=== PATIENT | male | born 1960 | race Caucasian/White ===

== ENCOUNTER 2017-06-05 03:15 | Inpatient (IN) | payer OTHER, SELFPAY ==
[2017-06-05 03:45] LABS: #Basophils 0.1 thou/uL (0.0-0.2); #Eosinphils 0.1 thou/uL (0.0-0.7); #Lymphocytes 0.9 thou/uL (1.20-3.40); #Monocytes 0.4 thou/uL (0.11-0.59); #Neutrophils 6.1 thou/uL (1.40-6.50); %Basophils 0.7 % (0.0-1.0); %Eosinophils 0.8 % (0.0-10.0); %Lymphocytes 11.6 % (21.0-51.0); %Monocytes 5.3 % (0.0-10.0); %Neutrophils 81.6 % (42.0-75.0); Hemoglobin 14.1 g/dL (14.0-18.0); Mean Corpuscular HGB CONC 33.8 g/dL (32.0-36.0); Mean Corpuscular Hemoglobin 31.5 pg (27.0-31.0); Mean Corpuscular Volume 93.3 fl (80.0-94.0); Mean Platelet Volume 8.9 fL (7.4-10.4); Platelet Count 143 thou/uL (130-400); RBC Distribution Width 13.6 % (11.5-14.5); Red Blood Cell (RBC) Count 4.47 mill/uL (4.70-6.10); White Blood Cell (WBC) Count 7.5 thou/uL (4.8-10.8)
[2017-06-05 03:51] LABS: INR-International Normal Ratio 1.2; PTT 33.6 SEC (22.9-36.1); Prothrombin Time 15.4 SEC (12.0-14.7)
[2017-06-05 04:06] LABS: ALT (SGPT) 19 U/L (8-55); AST (SGOT) 35 U/L (5-34); Albumin 3.8 g/dL (3.5-5.0); Alkaline Phosphatase 166 U/L (40-150); Anion Gap 15 mmol/L (10-20); BUN (Urea Nitrogen) 11 mg/dL (8.4-25.7); Bilirubin, Total 1.9 mg/dL (0.2-1.2); CK (CPK) 198 U/L (30-200); Calc. Creatinine Clearance 0 mL/min (70-130); Calcium 9.1 mg/dL (7.8-10.44); Carbon Dioxide 23 mmol/L (22-29); Chloride 103 mmol/L (98-107); Estimated GFR-MDRD Greater than 90; Globulin 4.3 g/dL (2.4-3.5); Glucose 225 mg/dL (70-105); Potassium 4.3 mmol/L (3.5-5.1); Protein, Total 8.1 g/dL (6.0-8.3); Sodium 137 mmol/L (136-145)
[2017-06-05 04:10] LABS: CKMB 3.4 ng/mL (0-6.6); Troponin I 0.163 ng/mL (< 0.028)
[2017-06-05] MEDS ORDERED: Nitroglycerin 0.4 MG TAB (25 Tab Bottle) ONE (04:12)
[2017-06-05] MEDS ORDERED: Nitroglycerin 2% Ointment 1 INCH/1 GM Packet ONE (04:12)
[2017-06-05] MEDS ORDERED: Enoxaparin Sodium 100 MG/ML SYRINGE ONE (04:55)
[2017-06-05] MEDS ORDERED: Ondansetron HCl/PF 4 MG/2 ML Vial ONE ×2 (06:09→13:33)
[2017-06-05] MEDS ORDERED: Acetaminophen 325 MG TAB PO PRN ×2 (06:14→11:16)
[2017-06-05] MEDS ORDERED: HYDROcodone/Acetaminophen 5/325 mg Tablet PO PRN (06:14)
[2017-06-05 07:38] LABS: Troponin I 0.277 ng/mL (< 0.028)
--- NOTE | 2017-06-05 08:52 | RAD ---
UPRIGHT PORTABLE CHEST 1 VIEW: HISTORY: A 57-year-old male with chest pain and shortness of breath. COMPARISON: 11/09/05. FINDINGS: Heart size is within upper range of normal limits given somewhat less than optimal inspiration. Ther e is some bilateral vascular crowding. No confluent pneumonia, overt edema, or pleural effusion. IMPRESSION: No acute intrathoracic disease. POS: [facility]
[2017-06-05] MEDS ORDERED: Aspirin 325 MG TAB PO SCH (09:00)
[2017-06-05 10:46] LABS: Troponin I 1.013 ng/mL (< 0.028)
[2017-06-05] MEDS ORDERED: Nitroglycerin 0.4 MG TAB (25 Tab Bottle) SL PRN ×2 (11:21→18:22)
[2017-06-05] MEDS ORDERED: Morphine 4 MG/ML Carpuject SLOW IVP PRN (11:21)
[2017-06-05] MEDS ORDERED: Heparin 10,000 UNITS/ 10 ML VIAL SLOW IVP SCH (11:30)
[2017-06-05] MEDS ORDERED: Iopamidol 370 76% 100 ML VIAL ONE (11:33)
[2017-06-05] MEDS ORDERED: Benzonatate 100 MG CAP PO PRN (11:35)
[2017-06-05] MEDS ORDERED: Dextromethorphan Polistirex 30 MG/5 ML (89 ML BOTTLE) PO PRN (11:35)
[2017-06-05 11:44] LABS: Hemoglobin 13.5 g/dL (14.0-18.0); Platelet Count 134 thou/uL (130-400)
[2017-06-05 12:12] LABS: Troponin I 1.794 ng/mL (< 0.028)
[2017-06-05] MEDS ORDERED: Benzonatate 100 MG CAP ONE (12:29)
--- NOTE | 2017-06-05 12:40 | HP ---
CHIEF COMPLAINT: Cough. HISTORY OF PRESENT ILLNESS: A 57-year-old male with a history of obesity who previously sustained a myocardial infarction and had been evaluated by Cardiovascular Surgery who presents today with a carin f complaint of cough. The patient states that this has been ongoing and progressed over the last wee k and he complains of episodes of coughing were he started coughing and had difficulty stopping cough ing and subsequently has a fair amount of stomach discomfort and chest discomfort that he attributes directly to the coughing. He denies any chest pain or chest pressure without coughing. He endorses a feeling of a "trickle" in the back of his throat that precipitates his episodes of coughing. Denie s any fevers, chills, or sick contacts. He states that he had a similar event approximately a year a go for which he was seen at [facility], diagnosed with bronchitis and a myocardial infarction at that point in time. Denies any production to his cough. At the time of my evaluation in the Emergency Department, the patient has had serial troponins that h ave been 0.163, 0.277 and 1.013. REVIEW OF SYSTEMS: As per HPI, includes the following. GENERAL: No fevers, no chills, no recent weight loss or gain. HEAD AND NECK: No new headaches, no new vision changes, no new dizziness or lightheadedness. CARDIOVASCULAR: Denies any shortness of breath that is not associated with the cough. No chest pain other than that described above, which is associated with his cough. Denies any diaphoretic episode s. Endorses having some nausea and retching after episodes of coughing, but not without the coughing . RESPIRATORY: As per HPI. GASTROINTESTINAL: As per HPI. Denies any diarrhea, denies any constipation, denies any actual emesi s, only retching. Last bowel movement was yesterday evening, which he describes as "normal." GENITOURINARY: Denies any dysuria, change in urinary color, frequency, or quality. MUSCULOSKELETAL: Endorses some swelling of bilateral lower extremities over the last week as well. NEUROLOGICAL: Denies any sensations of paresthesias or anesthesia. PAST MEDICAL HISTORY: 1. Diabetes. 2. History of GA. PAST SURGICAL HISTORY: 1. Status post cardiac catheterization. 2. Status post left shoulder issues. 3. 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 HOME MEDICATIONS: Please see the EMR for full details. The patient denies any changes in the last m onth. However, patient's significant other at bedside states that he has not had a PCP in the last y ear since his discharge from the prior hospitalization for bronchitis and chest pain. She states martinez t they originally prescribed some medications for his heart, but because they made his diabetes go "s ky high," he elected to stop taking these medications several months ago. ALLERGIES: No known drug allergies. FAMILY HISTORY: Significant for diabetes. SOCIAL HISTORY: The patient denies any alcohol use in the last 2 weeks. Denies any illicit drug use . Has a prior known history of tobacco use, quit 10 years ago. He lives with his significant other who is with him at bedside. 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 Denies any known sick contacts. PHYSICAL EXAMINATION: VITAL SIGNS: Blood pressure 126/70, respirations 24, satting 94% on 2 liters nasal cannula, temperat ure of 99.4 and heart rate of 88. GENERAL: The patient is awake, alert, conversant, in no acute distress, seated in a chair, able to p rovide history as noted above, oriented x3. HEENT: Moist mucous membranes. Equal ocular motions are intact. Nasal cannula is in place. CARDIOVASCULAR: S1 and S2. Soft heart tones. Pulses 2+ bilateral upper extremities. No murmurs, r ubs or gallops noted. 2+ bilateral pitting pedal edema. RESPIRATORY: Diminished throughout. No overt wheezes, rales or rhonchi. Marginal air movement. ABDOMEN: Obese, positive bowel sounds, soft, nontender to palpation. No bruits noted. LABORATORY AND IMAGING DATA: EKG not reviewed by myself, but per the ER review demonstrates possible left atrial enlargement, normal sinus rhythm, nonspecific IV intraventricular conduction delay. No ST or T-wave changes suggestive of ACS. WBC 7.5, hemoglobin 14.1, hematocrit 41.7 and platelets 143. INR 1.2. Sodium 137, potassium 4.3, ch loride 103, bicarbonate 23, BUN 11, creatinine 0.76, glucose 225, total bilirubin 1.9, AST 35, ALT 19 , alkaline phosphatase 166. Troponin 0.163, 0.277 and 1.013. Lipase 7. BNP 470. Chest x-ray, impression, "no acute intrathoracic disease." ASSESSMENT AND PLAN: This is a 57-year-old male who presented initially with a chief complaint of co ugh. 1. Regarding the patient's cough, this certainly could represent a new upper respiratory infection. We will check for viral etiologies. Currently, chest x-ray does not suggest the possibility of pneu monia, symptomatic management with close monitoring of heart rate in the setting of elevated troponin and a known history of prior cardiac disease. 2. [id number] myocardial infarction with elevated troponin. It appears that the patient has a known prior history of cardiac disease. He currently does not have an outpatient leaf stripper. It appears that he was seen by Cardiology over at [facility], was referred to a cardiovascular surg radha, but did not follow up with the cardiovascular surgeon. He subsequently went to [place] to see i f he was a candidate for chelation therapy to help "remove coronary blockage" as per the patient's fa nichole at bedside. However, patient did not follow up with that either. The patient is started on asp irin, lisinopril if blood pressure tolerates; metoprolol, blood pressure and heart rate tolerates; at orvastatin. Fasting lipid panel to be drawn in the morning along with a hemoglobin A1c for the patie nt's known history of diabetes. His risk factors include diabetes and morbid obesity. The patient h as been started on a heparin drip and will be maintained on telemetry. Echocardiogram has been order ed along with an EKG, repeat in the morning. I appreciate Cardiology consultation as well. While th e patient's clinical presentation known history demonstrates the possibility of azi-TU-khccqiayb myoc ardial infarction, we will also obtain a CTA of the chest to rule out the possibility of a pulmonary embolism in this gentleman. 3. Diabetes. Check hemoglobin A1c as noted above. Sliding scale insulin due to the patient's varia ble oral intake at this point in time. Admit the patient to inpatient telemetry, FULL CODE status was discussed with the patient and his sig nificant other at bedside.
[2017-06-05] MEDS ORDERED: Acetaminophen 325 MG TAB ONE (13:22)
[2017-06-05] MEDS ORDERED: ISOVUE-370 76%-LOCM 1 ML ONE (13:25)
--- NOTE | 2017-06-05 14:11 | CT ---
CT ARTERIOGRAM CHEST WITH IV CONTRAST AND 3D MIP IMAGING: History Chest pain. FINDINGS: There is good contrast opacification of the pulmonary arteries. Bovine origin of the great vessels f rom the aortic arch is apparent. Patchy infiltrate is present at the right lung base with less promi nent atelectasis at the left posterior lung base. Minimal pleural fluid. IMPRESSION: 1. No CT evidence of pulmonary embolus. 2. Right basilar pneumonitis. Clinical correlation regarding other signs and symptoms of right lowe r lobe pneumonia is required. POS: [facility]
[2017-06-05] MEDS ORDERED: Furosemide 40 MG/4 ML VIAL ONE (14:24)
[2017-06-05] MEDS: Sodium Chloride 0.9% 1,000 ML IV SCH ×4 (15:35→23:30)
[2017-06-05 15:52] LABS: Troponin I 2.432 ng/mL (< 0.028)
[2017-06-05 16:08] LABS: CKMB 7.6 ng/mL (0-6.6)
[2017-06-05] MEDS ORDERED: Furosemide 40 MG/4 ML VIAL SLOW IVP SCH (16:30)
--- NOTE | 2017-06-05 17:08 | CON ---
DATE OF CONSULTATION: 06/05/2017 REASON FOR CONSULTATION: Unstable angina. PRIMARY CARE PROVIDER: Dr. Ambrosio PRIMARY CLAIMS COUNSEL PROVIDER: Dr. Odell Parker. HISTORY OF PRESENT ILLNESS: Mr. Cole is a 57-year-old gentleman, who has been seen and evaluated at [facility] 1 year ago. He underwent coronary angiography in 06/[address] Odell Parker. B ypass was recommended. He failed to schedule any followup. appointment with Dr. Cross to schedule bypass surgery. He did go to [place] for chelation therapy. He presented with worsening chest pain and shortness of breath today. It was severe earlier. Now it is mild. I did call and spoke with Dr. Hansel Conde given he underwent coronary angiography and wanted to know his anatomy. His anatomy is as follows: Left main, 50% LAD, 90% circumflex, 90% mid OM, and 90% ra mus, right coronary artery with 90% proximal, and 80% mid stenosis with LVEF of 35% to 40%. PAST MEDICAL HISTORY: Diabetes mellitus, previous KS. PAST SURGICAL HISTORY: Shoulder surgery, amputation of toe. ALLERGIES: None. FAMILY HISTORY: Diabetes. SOCIAL HISTORY: No current tobacco or alcohol use. ALLERGIES: None. REVIEW OF SYSTEMS: 10-point review of system reviewed and is as above, otherwise negative. PHYSICAL EXAMINATION: GENERAL: Patient is a pleasant male who is in no acute distress. The patient appears his stated age . VITAL SIGNS: Blood pressure 149/70, pulse 105, respirations 20. NEUROLOGIC: The patient is alert and oriented times 3 with no focal neurologic deficits. HEENT: Sclerae without icterus. Mouth has moist mucous membranes with normal pallor. NECK: No JVD. Carotid upstroke brisk. No bruits bilaterally. LUNGS: Mild crackles bilaterally. BACK: No scoliosis or kyphosis. CARDIAC: Regular rate and rhythm with normal S1 and S2. No S3 or S4 noted. No significant rubs, murmurs, thrills, or gallops noted throughout the precordium. PMI is not displaced. There is no parasternal heave. ABDOMEN: Soft, nontender, nondistended. No peritoneal signs present. No hepatosplenomegaly. No abnormal striae. EXTREMITIES: 2+ femoral and 2+ dorsalis pedis pulses. No cyanosis, clubbing, or edema. SKIN: No gross abnormalities. PERTINENT LABORATORY AND X-RAY FINDINGS: Initial troponin 0.163, last troponin 1.794. EKG normal si nus rhythm with ST-T wave changes suggesting LVH. IMPRESSION: 1. Unstable angina. 2. Diabetes mellitus. RECOMMENDATIONS: Certainly a difficult case given his anatomy of left main disease and 3-vessel dise ase. At this point, my plan is to try and control Mr. Cole's symptoms. He will need bypass surge ry. If he continues to have pain, he would recommend coronary angiography, possible PCI. I discusse d the procedure in full detail with Mr. Cole. Risks include but are not limited. I discussed the procedure in full detail with the patient. The risks of the procedure were also discussed. The ris ks of the procedure include but are not limited to the following: , stroke, KS, need for emerge ncy surgery, loss of limb, bleeding, and infection, as well as a reaction to the dye causing kidney f ailure and needing long-term dialysis. I also discussed the risks of PCI to include all of the above including coronary dissection and perforation in addition to acute stent thrombosis and restenosis. All questions about the procedure were answered. Given the above, the patient agreed to proceed wit h coronary angiography and possible PCI. All questions about the procedure were answered. I also di scussed the case with Dr. Ellis Cao, who is aware Mr. Cole. He has been placed on IV nitrogly cerin in addition to Lovenox and Lasix. We will also give low dose beta antown therapy. We will pl dmitri in the ICU.
[2017-06-05 17:25] LABS: Hemoglobin A1c 8.5 % (4.0-6.0)
[2017-06-05] MEDS ORDERED: Heparin 0 ML ONE (17:26)
[2017-06-05 17:27] LABS: Anion Gap 12 mmol/L (10-20); BUN (Urea Nitrogen) 11 mg/dL (8.4-25.7); Calc. Creatinine Clearance 0 mL/min (70-130); Calcium 8.4 mg/dL (7.8-10.44); Carbon Dioxide 27 mmol/L (22-29); Chloride 102 mmol/L (98-107); Estimated GFR-MDRD Greater than 90; Glucose 171 mg/dL (70-105); Potassium 3.5 mmol/L (3.5-5.1); Sodium 137 mmol/L (136-145)
[2017-06-05] MEDS: Heparin 25,000 units/D5W 500 ML IVPB SCH (17:34)
[2017-06-05] MEDS ORDERED: Nitroglycerin 100MG/250ML BOT 250 ML ONE (17:55)
[2017-06-05] MEDS ORDERED: Heparin 10,000 UNITS/1 ML VIAL ONE (17:55)
[2017-06-05 17:59] LABS: Troponin I 3.268 ng/mL (< 0.028)
[2017-06-05] MEDS ORDERED: Verapamil 5 MG/2 ML VIAL ONE (18:00)
[2017-06-05] MEDS ORDERED: Fentanyl 100 MCG/2 ML VIAL ONE (18:00)
[2017-06-05] MEDS ORDERED: Midazolam HCl 2 mg/2 ml Vial ONE (18:00)
[2017-06-05] MEDS ORDERED: traMADol HCl 50 MG TAB PO PRN (18:22)
[2017-06-05] MEDS ORDERED: Acetaminophen/Codeine 30-300mg Tablet PO PRN (18:22)
[2017-06-05] MEDS ORDERED: Sodium Chloride 0.9% 200 ML IV SCH (18:30)
[2017-06-05] MEDS: Atorvastatin Calcium 20 MG TAB PO SCH (20:12)
[2017-06-05] MEDS: Metoprolol Tartrate 25 MG TAB PO SCH (20:12)
[2017-06-05 20:59] LABS: Troponin I 4.146 ng/mL (< 0.028)
--- NOTE | 2017-06-05 21:28 | CON ---
DATE OF CONSULTATION: 06/05/2017 EMERGENCY DEPARTMENT NOTE HISTORY OF PRESENT ILLNESS: Mr. Cole is a 57-year-old gentleman who was seen 1 year ago almost to the weekend by Dr. Cross at [facility]. At that time, he had presented through the [facility] emergency room with chest pain and cough. He had a positive troponin of 0.2, was taken to the c ath lab, found to have severe 3-vessel disease. Bypassable targets on my review included a diagonal and OM and potentially a PDA. I think the ramus and the posterolateral branch were probably going to be nonbypassable. His LAD is nonbypassable. Echo at that time, showed an ejection fraction of 30%. He had severe cough and was felt to be at risk for sternal dehiscence due to his cough. Therefore, he was sent home and after multiple phone calls he failed to come back to see Dr. Cross. He presented to the [facility] Room with chest pressure for 3 days prior to coming in. He also has had recurrent cough. He since being admitted, he has had morphine, nitroglycerin, and aspir in. His chest pressure has been relieved. He is currently not coughing. He has no other current co mplaints at this time. PAST MEDICAL HISTORY: 1. Coronary artery disease/status post non-ST elevation myocardial infarction in 2017 and again now. 2. Hypertension. 3. Hyperlipidemia. 4. Uncontrolled diabetes mellitus. PAST SURGICAL HISTORY: 1. Left shoulder surgery. 2. Left toe amputation. SOCIAL HISTORY: He has not used tobacco. He is . He lives in [place]. CURRENT MEDICATIONS: 1. Aspirin 325 mg every day. 2. Coreg 3.125 mg b.i.d. 3. Gabapentin. ALLERGIES: None. REVIEW OF SYSTEMS: Ten point review of systems is negative except as above. PHYSICAL EXAMINATION: GENERAL: This is an obese gentleman resting comfortably on the stretcher with no complaints currentl y. VITAL SIGNS: His heart rate is 85 and regular, blood pressure is 154/72, oxygen saturations are 98% on room air. NECK: Supple, without carotid bruit. CHEST: Clear bilaterally. HEART: Rhythm is regular, without murmur. ABDOMEN: Obese, soft and nontender. EXTREMITIES: There is mild to moderate bilateral pitting edema. He has SCDs on. There is brawny ed jud of both lower ankles. VASCULAR: Palpable carotid, radial, femoral, pulses bilaterally. ASSESSMENT AND PLAN: This is a 57-year-old gentleman, who has known 3-vessel coronary disease, who h as been admitted to the ICU on nitroglycerin drip. He had coronary artery bypass grafting recommende d in 2017, which he declined by failing to follow up the schedule. He is back with similar symptoms and a positive troponin. He will need to be re-cathed. He does not have a bypassable LAD, so out im pact on his longevity will be minimal, although hopefully bypassing his other bypassable targets judyu ld help with the angina and symptoms that he is having. Echocardiogram has also been ordered to furt her evaluate his ventricle -- his ejection fraction was 30% prior to starting on Coreg in 2017. Of n ash, he has had no followup with Cardiology since that time. I have discussed these findings both with the patient and Dr. Montenegro who agree and we will reevalu ate after his catheterization is done.
[2017-06-05 23:31] LABS: INR-International Normal Ratio 1.4; Prothrombin Time 17.9 SEC (12.0-14.7)
[2017-06-05 23:52] LABS: Troponin I 4.898 ng/mL (< 0.028)
[2017-06-06 00:18] LABS: PTT Greater than 250.0 SEC (22.9-36.1)
[2017-06-06] MEDS ORDERED: Bisacodyl 10 MG SUPP PR SCH (01:15)
[2017-06-06] MEDS: Nitroglycerin 50 MG/250 ML BOT 250 ML IVPB SCH ×2 (01:27→14:55)
[2017-06-06 02:30] LABS: Cardiac Risk 3.3 (Less than 4.5)
[2017-06-06] MEDS: Sodium Chloride 0.9% 1,000 ML IV SCH ×3 (04:10→20:20)
[2017-06-06 04:11] VITALS: BMI 40.3
[2017-06-06] MEDS: Acetaminophen/Codeine 30-300mg Tablet PO PRN ×2 (05:24→20:22)
[2017-06-06] MEDS: Aspirin 325 MG TAB PO SCH (08:01)
[2017-06-06] MEDS: Metoprolol Tartrate 25 MG TAB PO SCH ×2 (08:01→21:11)
[2017-06-06] MEDS ORDERED: Lorazepam 2 MG/ML VIAL SLOW IVP PRN (12:32)
[2017-06-06] MEDS ORDERED: HYDROcodone/Acetaminophen 5/325 mg Tablet PO PRN (13:47)
--- NOTE | 2017-06-06 13:48 | PDOC.PN ---
- Subjective Encounter Start Date: 06/06/17 Encounter Start Time: 13:48 Subjective: nsg notes rev, connor ovn, still has some residual L chest wall pain -: but overall better than yesterday. understands POC - Objective Resuscitation Status: Resuscitation Status FULL:Full Resuscitation Vital Signs & Weight: Vital Signs (12 hours) Temp 06/06/17 08:00 99 F 06/06/17 04:00 99.5 F Weight Admit Weight 242 lb 8.136 oz Weight 242 lb 8.136 oz Most Recent Monitor Data Heart Rate from ECG 70 NIBP 135/72 NIBP BP-Mean 95 Respiration from ECG 19 SpO2 100 I&O: 06/05/17 06/06/17 06/07/17 06:59 06:59 06:59 Intake Total 2556 Output Total 2950 150 Balance -394 -150 Result Diagrams: 06/05/17 11:35 06/05/17 17:04 Phys Exam - Physical Examination Constitutional: NAD HEENT: PERRLA, moist MMs Respiratory: no wheezing, no rales, no rhonchi, clear to auscultation bilateral limited anterior examination Cardiovascular: RRR, no significant murmur, no rub Gastrointestinal: soft, non-tender, no distention, positive bowel sounds obese Musculoskeletal: pulses present Neurological: moves all 4 limbs Psychiatric: normal affect, A&O x 3 Dx/Plan (1) Bronchitis Code(s): J40 - BRONCHITIS, NOT SPECIFIED ACUTE OR CHRONIC Status: Acute (2) NSTEMI (non-ST elevated myocardial infarction) Code(s): I21.4 - NON-ST ELEVATION (NSTEMI) MYOCARDIAL INFARCTION Status: Acute (3) HTN (hypertension) Code(s): I10 - ESSENTIAL (PRIMARY) HYPERTENSION Status: Acute (4) Diabetes Code(s): E11.9 - TYPE 2 DIABETES MELLITUS WITHOUT COMPLICATIONS Status: Acute (5) Obesity Code(s): E66.9 - OBESITY, UNSPECIFIED Status: Acute - Plan * bronchitis * symptomatic mgmt * influenza negative NSTEMI * apprec cardiology c/s * apprec CV surgery c/s * heparin gtt, nitro gtt, target SBP 110-120: add lisinopril, uptitrate metoprolol tartrate to 25mg PO BID, cont asa, atorvastatin DM * SSI HTN * see above diet: cardiac activity: per cardiac parameters dvt ppx: heparin gtt Review of Systems - Medications/Allergies Allergies/Adverse Reactions: Allergies Allergy/AdvReac Type Severity Reaction Status Date / Time No Known Allergies Allergy Unverified 06/05/17 06:45 Medications: Current Medications Acetaminophen (Tylenol) 650 mg PO Q4H PRN PRN Reason: Headache/Fever or Pain Acetaminophen/Codeine Phosphate (Tylenol #3) 1 tab PO Q4H PRN PRN Reason: Mild Pain (1-3) Last Admin: 06/06/17 15:13 Dose: 1 tab Acetaminophen/Codeine Phosphate (Tylenol #3) 2 tab PO Q4H PRN PRN Reason: Moderate Pain (4-6) Last Admin: 06/06/17 20:22 Dose: 2 tab Hydrocodone Bitart/Acetaminophen ([place] 5/325) 1 tab PO Q4H PRN PRN Reason: Muscle Pain Aspirin (Aspirin) 325 mg PO DAILY [facility] Last Admin: 06/07/17 08:58 Dose: 325 mg Atorvastatin Calcium (Lipitor) 20 mg PO QPM [facility] Last Admin: 06/06/17 21:11 Dose: 20 mg Benzonatate (Tessalon) 100 mg PO TIDPRN PRN PRN Reason: Cough Dextromethorphan Polistirix (Delsym 30 Mg/5 Ml 89 Ml Bot) 15 mg PO Q8H PRN PRN Reason: Cough Heparin Sodium (Porcine) (Heparin 1,000 Units/Ml (10 Ml)) 0 units SLOW IVP ASDIR [facility] PRN Reason: Protocol Last Admin: 06/05/17 17:33 Dose: 4,000 unit Hydralazine HCl (Apresoline) 10 mg SLOW IVP Q4H PRN PRN Reason: SBP>120 Last Admin: 06/07/17 03:04 Dose: 10 mg Heparin Sodium/Dextrose (Heparin 25,000 Units/D5w 500 Ml) 500 mls @ 0 mls/hr IVPB INF RAJI; Per Protocol PRN Reason: Protocol Last Admin: 06/06/17 23:03 Dose: 500 mls Nitroglycerin/Dextrose (Nitroglycerin 50 Mg/250 Ml Bot) 250 mls @ 0 mls/hr IVPB INF RAJI; As Directed PRN Reason: Protocol Last Admin: 06/06/17 14:55 Dose: 250 mls Sodium Chloride (Normal Saline 0.9%) 1,000 mls @ 125 mls/hr IV .Q8H [facility] Last Admin: 06/07/17 03:03 Dose: 1,000 mls Lisinopril (Zestril) 20 mg PO DAILY [facility] Last Admin: 06/07/17 08:58 Dose: 20 mg Metoprolol Tartrate (Lopressor) 25 mg PO BID [facility] Last Admin: 06/07/17 08:58 Dose: 25 mg Morphine Sulfate (Morphine) 2 mg SLOW IVP Q5MIN PRN PRN Reason: Chest Pain Last Admin: 06/07/17 07:28 Dose: 2 mg Nitroglycerin (Nitrostat) 0.4 mg SL Q5MIN PRN PRN Reason: Chest Pain Tramadol HCl (Ultram) 50 mg PO Q6H PRN PRN Reason: Moderate Pain (4-6)
[2017-06-06] MEDS ORDERED: Lisinopril 20 MG TAB PO SCH (14:00)
[2017-06-06] MEDS ORDERED: Metoprolol Tartrate 25 MG TAB PO SCH (14:00)
[2017-06-06 15:46] LABS: PTT 116.2 SEC (22.9-36.1)
[2017-06-06] MEDS ORDERED: hydrALAZINE 20 MG/ML VIAL SLOW IVP PRN (18:45)
[2017-06-06] MEDS: Atorvastatin Calcium 20 MG TAB PO SCH (21:11)
[2017-06-06] MEDS: Heparin 25,000 units/D5W 500 ML IVPB SCH (23:03)
[2017-06-07] MEDS: Sodium Chloride 0.9% 1,000 ML IV SCH (03:03)
[2017-06-07] MEDS: Metoprolol Tartrate 25 MG TAB PO SCH (08:58)
[2017-06-07] MEDS: Lisinopril 20 MG TAB PO SCH (08:58)
[2017-06-07] MEDS: Aspirin 325 MG TAB PO SCH (08:58)
--- NOTE | 2017-06-07 09:23 | PDOC.PN ---
- Subjective Encounter Start Date: 06/07/17 Encounter Start Time: 09:21 Subjective: nsg notes rev, connor ovn, no new c/o feels that the chest pressure over the L -: chest wall is gone, but still has some intermittent SOB - Objective Resuscitation Status: Resuscitation Status FULL:Full Resuscitation Vital Signs & Weight: Vital Signs (12 hours) Temp Pulse Resp BP Pulse Ox 06/07/17 08:58 145/59 H 06/07/17 08:00 100.2 F H 83 16 100 06/07/17 04:00 98.7 F 06/07/17 03:27 95 06/07/17 03:04 75 130/61 06/07/17 00:00 98.4 F Weight Admit Weight 242 lb 8.136 oz Weight 242 lb 8.136 oz Most Recent Monitor Data Heart Rate from ECG 84 NIBP 161/78 NIBP BP-Mean 100 Respiration from ECG 23 SpO2 100 I&O: 06/06/17 06/07/17 06/08/17 06:59 06:59 06:59 Intake Total 2556 2418 180 Output Total 2950 1115 198 Balance -394 1303 -18 Result Diagrams: 06/05/17 11:35 06/05/17 17:04 Phys Exam - Physical Examination Constitutional: NAD HEENT: PERRLA, moist MMs Neck: no nodes Respiratory: no wheezing, no rales, no rhonchi, clear to auscultation bilateral limited ant exam Cardiovascular: RRR, no significant murmur, no rub soft heart tones Gastrointestinal: soft, non-tender, no distention, positive bowel sounds obese Musculoskeletal: no edema, pulses present Neurological: moves all 4 limbs Psychiatric: normal affect, A&O x 3 Dx/Plan (1) Bronchitis Code(s): J40 - BRONCHITIS, NOT SPECIFIED ACUTE OR CHRONIC Status: Acute (2) NSTEMI (non-ST elevated myocardial infarction) Code(s): I21.4 - NON-ST ELEVATION (NSTEMI) MYOCARDIAL INFARCTION Status: Acute (3) HTN (hypertension) Code(s): I10 - ESSENTIAL (PRIMARY) HYPERTENSION Status: Acute (4) Diabetes Code(s): E11.9 - TYPE 2 DIABETES MELLITUS WITHOUT COMPLICATIONS Status: Acute (5) Obesity Code(s): E66.9 - OBESITY, UNSPECIFIED Status: Acute - Plan * bronchitis, improving * symptomatic mgmt * influenza negative NSTEMI * apprec cardiology c/s * apprec CV surgery c/s * heparin gtt, nitro gtt, target SBP 110-120: continue lisinopril, metoprolol, ASA, atorvastatin * plan for poss surgery tomorrow DM * SSI HTN * see above diet: cardiac activity: per cardiac parameters dvt ppx: heparin gtt Review of Systems - Review of Systems Eyes: Vision Change - Medications/Allergies Allergies/Adverse Reactions: Allergies Allergy/AdvReac Type Severity Reaction Status Date / Time No Known Allergies Allergy Unverified 06/05/17 06:45 Medications: Current Medications Acetaminophen (Tylenol) 650 mg PO Q4H PRN PRN Reason: Headache/Fever or Pain Acetaminophen/Codeine Phosphate (Tylenol #3) 1 tab PO Q4H PRN PRN Reason: Mild Pain (1-3) Last Admin: 06/06/17 15:13 Dose: 1 tab Acetaminophen/Codeine Phosphate (Tylenol #3) 2 tab PO Q4H PRN PRN Reason: Moderate Pain (4-6) Last Admin: 06/06/17 20:22 Dose: 2 tab Hydrocodone Bitart/Acetaminophen ([place] 5/325) 1 tab PO Q4H PRN PRN Reason: Muscle Pain Aspirin (Aspirin) 325 mg PO DAILY [facility] Last Admin: 06/07/17 08:58 Dose: 325 mg Atorvastatin Calcium (Lipitor) 20 mg PO QPM [facility] Last Admin: 06/06/17 21:11 Dose: 20 mg Benzonatate (Tessalon) 100 mg PO TIDPRN PRN PRN Reason: Cough Dextromethorphan Polistirix (Delsym 30 Mg/5 Ml 89 Ml Bot) 15 mg PO Q8H PRN PRN Reason: Cough Heparin Sodium (Porcine) (Heparin 1,000 Units/Ml (10 Ml)) 0 units SLOW IVP ASDIR [facility] PRN Reason: Protocol Last Admin: 06/05/17 17:33 Dose: 4,000 unit Hydralazine HCl (Apresoline) 10 mg SLOW IVP Q4H PRN PRN Reason: SBP>120 Last Admin: 06/07/17 03:04 Dose: 10 mg Heparin Sodium/Dextrose (Heparin 25,000 Units/D5w 500 Ml) 500 mls @ 0 mls/hr IVPB INF [facility]; Per Protocol PRN Reason: Protocol Last Admin: 06/06/17 23:03 Dose: 500 mls Nitroglycerin/Dextrose (Nitroglycerin 50 Mg/250 Ml Bot) 250 mls @ 0 mls/hr IVPB INF RAJI; As Directed PRN Reason: Protocol Last Admin: 06/06/17 14:55 Dose: 250 mls Sodium Chloride (Normal Saline 0.9%) 1,000 mls @ 125 mls/hr IV .Q8H [facility] Last Admin: 06/07/17 03:03 Dose: 1,000 mls Lisinopril (Zestril) 20 mg PO DAILY [facility] Last Admin: 06/07/17 08:58 Dose: 20 mg Metoprolol Tartrate (Lopressor) 25 mg PO BID [facility] Last Admin: 06/07/17 08:58 Dose: 25 mg Morphine Sulfate (Morphine) 2 mg SLOW IVP Q5MIN PRN PRN Reason: Chest Pain Last Admin: 06/07/17 07:28 Dose: 2 mg Nitroglycerin (Nitrostat) 0.4 mg SL Q5MIN PRN PRN Reason: Chest Pain Tramadol HCl (Ultram) 50 mg PO Q6H PRN PRN Reason: Moderate Pain (4-6)
[2017-06-07] MEDS ORDERED: Communication Order-Pharmacy FS ONE (10:23)
[2017-06-07] MEDS ORDERED: Furosemide 20 MG/2 ML VIAL SLOW IVP SCH (10:45)
[2017-06-07 11:14] LABS: INR-International Normal Ratio 1.2; Prothrombin Time 15.6 SEC (12.0-14.7)
[2017-06-07 11:15] LABS: Hemoglobin A1c 8.4 % (4.0-6.0); PTT 87.7 SEC (22.9-36.1)
[2017-06-07 11:28] LABS: Anion Gap 9 mmol/L (10-20); BUN (Urea Nitrogen) 14 mg/dL (8.4-25.7); Calc. Creatinine Clearance 177 mL/min (70-130); Calcium 7.6 mg/dL (7.8-10.44); Carbon Dioxide 27 mmol/L (22-29); Chloride 101 mmol/L (98-107); Estimated GFR-MDRD Greater than 90; Glucose 140 mg/dL (70-105); Potassium 3.5 mmol/L (3.5-5.1); Sodium 133 mmol/L (136-145)
[2017-06-07 11:35] LABS: #Lymphocytes 0.9 thou/uL (1.20-3.40); #Monocytes 0.6 thou/uL (0.11-0.59); #Neutrophils 2.8 thou/uL (1.40-6.50); %Basophils 0.5 % (0.0-1.0); %Eosinophils 0.2 % (0.0-10.0); %Lymphocytes 21.2 % (21.0-51.0); %Neutrophils 65.1 % (42.0-75.0); Hemoglobin 11.4 g/dL (14.0-18.0); Mean Corpuscular HGB CONC 32.8 g/dL (32.0-36.0); Mean Corpuscular Hemoglobin 30.7 pg (27.0-31.0); Mean Corpuscular Volume 93.5 fl (80.0-94.0); PLT Morphology Comment Appears Decreased; Platelet Count 107 thou/uL (130-400); RBC Distribution Width 13.1 % (11.5-14.5); Red Blood Cell (RBC) Count 3.72 mill/uL (4.70-6.10); White Blood Cell (WBC) Count 4.4 thou/uL (4.8-10.8)
--- NOTE | 2017-06-07 11:50 | PRG ---
DATE OF SERVICE: 06/07/2017 SUBJECTIVE: Mr. Cole is doing well. No current symptoms. He continues to be on IV heparin and n itroglycerin. OBJECTIVE: VITAL SIGNS: Blood pressure 170/79, pulse 82, temperature afebrile. LUNGS: Clear to auscultation. CARDIAC: Regular rate and rhythm. ABDOMEN: Soft, nontender, nondistended. EXTREMITIES: No edema. IMPRESSION: 1. Severe coronary artery disease. 2. Ischemic cardiomyopathy. RECOMMENDATIONS: Discontinue metoprolol and add Coreg 6.25 b.i.d. Continue lisinopril and low dose Lasix. He is also on statin therapy. Plan is bypass tomorrow.
--- NOTE | 2017-06-07 12:40 | CON ---
DATE OF CONSULTATION: 06/07/2017 HISTORY OF PRESENT ILLNESS: This is a 57-year-old gentleman with a past medical history of diabetes mellitus, dyslipidemia, and borderline hypertension with probable remote anterior myocardial infarcti on. He was evaluated about 1 year ago at [facility] where he was found to have an ejection frac tion of 30-35% with triple vessel disease. At that time, the patient wished to go home prior to [facility] ng any surgical intervention and then never returned from followup. At that time, he was on no medic ation for his diabetes with a hemoglobin A1c of 11. He admitted at that time that he had pretty much whatever he wanted to eat without checking his blood sugars and stated that his diabetes was borderl ine. He was discharged on Coreg and aspirin as well as atorvastatin. He evidently had some chelatio n therapy and stopped his medications except for gabapentin. He presented with 1 week of dyspnea on 2-3 days of chest discomfort with chronic swelling in his lower extremities. He had an elevated trop onin on admission and underwent cardiac catheterization a couple of nights ago where he was found to have a similar disease compared to prior catheterization from one year earlier. Since discharge from the hospital, he has gained about 10 pounds over the last year. He currently is 5 foot 5 inches and 242 pounds. PHYSICAL EXAMINATION: NECK: No carotid bruits. CARDIAC: Distant heart sounds. No murmurs. LUNGS: Occasional expiratory wheeze. ABDOMEN: Obese, nontender. EXTREMITIES: He has palpable dorsalis pedis pulses bilaterally with 2+ pitting edema on the left and 1+ on the right. He has ultrasound of his left greater saphenous vein, reveals that does not appear to be too large to utilize for grafting. Review of his cardiac catheterization shows a chronically occluded LAD that h as never really visualized. He has a small diagonal that might be able to be grafted as well as an o btuse marginal, perhaps a small ramus, and then in his right system, there are about 4-5 branches on the inferior surface of the heart, 2 of which may be large enough to graft. His ejection fraction ap pears diminished at about 30%. ASSESSMENT AND PLAN: The patient presents high risk intervention due to multiple comorbidities and p oor targets with decreased ejection fraction. At this time, he wishes to proceed with surgical inter vention. We will plan on this tomorrow.
[2017-06-07] MEDS: Acetaminophen/Codeine 30-300mg Tablet PO PRN ×2 (12:44→22:23)
[2017-06-07] MEDS ORDERED: Insulin Regular 300 UNITS/3 ML VIAL SC PRN ×2 (13:24)
[2017-06-07] MEDS ORDERED: Dextrose 50% Abboject 50 ML SYRINGE IVP PRN (13:24)
[2017-06-07] MEDS ORDERED: Dextrose 5% in Water 1,000 ML IV PRN (13:24)
[2017-06-07] MEDS: Nitroglycerin 50 MG/250 ML BOT 250 ML IVPB SCH (14:40)
[2017-06-07] MEDS: Carvedilol 6.25 MG TAB PO SCH (20:43)
[2017-06-07] MEDS: Atorvastatin Calcium 20 MG TAB PO SCH (20:43)
[2017-06-08 04:27] LABS: #Lymphocytes 1.1 thou/uL (1.20-3.40); #Monocytes 0.5 thou/uL (0.11-0.59); %Basophils 0.3 % (0.0-1.0); %Eosinophils 0.4 % (0.0-10.0); %Lymphocytes 30.2 % (21.0-51.0); %Monocytes 12.8 % (0.0-10.0); %Neutrophils 56.2 % (42.0-75.0); Mean Corpuscular HGB CONC 33.2 g/dL (32.0-36.0); Mean Corpuscular Volume 93.3 fl (80.0-94.0); Mean Platelet Volume 8.3 fL (7.4-10.4); Platelet Count 101 thou/uL (130-400); Red Blood Cell (RBC) Count 3.57 mill/uL (4.70-6.10); White Blood Cell (WBC) Count 3.6 thou/uL (4.8-10.8)
[2017-06-08 04:38] LABS: Anion Gap 9 mmol/L (10-20); BUN (Urea Nitrogen) 16 mg/dL (8.4-25.7); Calc. Creatinine Clearance 174 mL/min (70-130); Calcium 7.7 mg/dL (7.8-10.44); Carbon Dioxide 30 mmol/L (22-29); Chloride 100 mmol/L (98-107); Estimated GFR-MDRD Greater than 90; Glucose 130 mg/dL (70-105); Potassium 3.5 mmol/L (3.5-5.1); Sodium 135 mmol/L (136-145)
[2017-06-08] MEDS: Carvedilol 6.25 MG TAB PO SCH (04:50)
[2017-06-08] MEDS: Nitroglycerin 50 MG/250 ML BOT 250 ML IVPB SCH (04:50)
[2017-06-08] MEDS ORDERED: Dexmedetomidine 200 MCG/2 ML VIAL ONE (06:23)
[2017-06-08] MEDS ORDERED: Vecuronium 10 MG VIAL ONE ×2 (06:23→15:56)
[2017-06-08] MEDS ORDERED: Norepinephrine 8 MG/0.9% NS 0 ML ONE (06:23)
[2017-06-08] MEDS ORDERED: Nitroglycerin 50 MG/250 ML BOT 250 ML ONE (06:37)
[2017-06-08] MEDS ORDERED: Aminocaproic Acid 5 GM/20 ML VIAL ONE ×2 (06:37→15:56)
[2017-06-08] MEDS ORDERED: Heparin 10,000 UNITS/1 ML VIAL ONE (06:37)
[2017-06-08] MEDS ORDERED: Heparin 10,000 UNITS/1 ML VIAL 30,000 UNITS in Sodium Chloride 0.9% 1,000 ML FS SCH (06:45)
[2017-06-08] MEDS ORDERED: Albumin 5% 500 ML ONE (06:52)
[2017-06-08] MEDS ORDERED: Insulin Regular 300 UNITS/3 ML VIAL ONE (06:58)
[2017-06-08] MEDS ORDERED: Milrinone 10 MG/10 ML VIAL ONE (07:47)
[2017-06-08] MEDS ORDERED: Midazolam HCl 5 mg/5 ml Vial ONE (08:21)
[2017-06-08] MEDS ORDERED: Fentanyl 100 MCG/2 ML VIAL ONE (08:21)
[2017-06-08] MEDS: Lisinopril 20 MG TAB PO SCH (09:00)
--- NOTE | 2017-06-08 12:34 | PDOC.PN ---
- Subjective Encounter Start Date: 06/08/17 Encounter Start Time: 15:30 CC; NSTEMI Sub: Pt just got back from CABG - Objective Resuscitation Status: Resuscitation Status FULL:Full Resuscitation Vital Signs & Weight: Vital Signs (12 hours) Temp BP 06/08/17 08:00 98.6 F 06/08/17 04:50 105/49 L 06/08/17 04:00 98.6 F Weight Admit Weight 242 lb 8.136 oz Weight 242 lb 8.136 oz Most Recent Monitor Data Heart Rate from ECG 68 NIBP 125/65 NIBP BP-Mean 81 Respiration from ECG 17 SpO2 100 I&O: 06/07/17 06/08/17 06/09/17 06:59 06:59 06:59 Intake Total 2418 1348 Output Total 1115 1633 70 Balance 1303 -285 -70 Result Diagrams: 06/08/17 14:07 06/08/17 14:07 Additional Labs: Accuchecks 06/08/17 06/07/17 06/07/17 11:59 20:51 17:23 POC Glucose 136 H 144 H 121 H 06/07/17 13:07 POC Glucose 172 H Dx/Plan - Plan - Physical Examination Constitutional: NAD HEENT: PERRLA, moist MMs Neck: no nodes Respiratory: no wheezing, no rales, no rhonchi, on vent support Cardiovascular: RRR, no significant murmur, no rub soft heart tones Gastrointestinal: soft, non-tender, no distention, positive bowel sounds obese Musculoskeletal: no edema, pulses present Neurological: moves all 4 limbs Psychiatric: normal affect, A&O x 3 Dx/Plan (1) Bronchitis Code(s): J40 - BRONCHITIS, NOT SPECIFIED ACUTE OR CHRONIC Status: Acute (2) NSTEMI (non-ST elevated myocardial infarction) Code(s): I21.4 - NON-ST ELEVATION (NSTEMI) MYOCARDIAL INFARCTION Status: Acute (3) HTN (hypertension) Code(s): I10 - ESSENTIAL (PRIMARY) HYPERTENSION Status: Acute (4) Diabetes Code(s): E11.9 - TYPE 2 DIABETES MELLITUS WITHOUT COMPLICATIONS Status: Acute (5) Obesity Code(s): E66.9 - OBESITY, UNSPECIFIED Status: Acute - Plan * bronchitis, improving * symptomatic mgmt * influenza negative NSTEMI * apprec cardiology c/s * apprec CV surgery c/s. s/p surgery, management per CTVS * heparin gtt, nitro gtt, target SBP 110-120: continue lisinopril, metoprolol, ASA, atorvastatin * p DM * SSI HTN * BP LOW currently. Agree witj albumin bolus. * * d/w pt & RN
[2017-06-08] MEDS ORDERED: Acetaminophen 325 MG TAB PO PRN (14:02)
[2017-06-08] MEDS ORDERED: Norepinephrine 8 MG/0.9% NS 250 ML IVPB PRN (14:02)
[2017-06-08] MEDS ORDERED: Hetastarch 6% 500 ML 500 ML IVPB PRN (14:02)
[2017-06-08] MEDS ORDERED: Post-Op Insulin Drip Protocol IVPB ONE (14:02)
[2017-06-08] MEDS ORDERED: Bisacodyl 5 MG TAB PO PRN (14:02)
[2017-06-08] MEDS ORDERED: Fentanyl 100 MCG/2 ML VIAL SLOW IVP PRN (14:02)
[2017-06-08] MEDS ORDERED: Magnesium Sulfate 5 GM in Sodium Chloride 0.9% 250 ML 1,000 ML IV SCH (14:02)
[2017-06-08] MEDS ORDERED: Bisacodyl 10 MG SUPP PR PRN (14:02)
[2017-06-08] MEDS ORDERED: Guaifenesin DM 100-10/5 ML UDCUP PO PRN (14:02)
[2017-06-08] MEDS ORDERED: Nitroglycerin 50 MG/250 ML BOT 250 ML IVPB PRN (14:02)
[2017-06-08] MEDS ORDERED: DOPamine 400 MG/D5W 250 ML 250 ML IVPB PRN (14:02)
[2017-06-08] MEDS ORDERED: Phenylephrine 10 MG/NS 250 ML 250 ML IVPB PRN (14:02)
[2017-06-08] MEDS ORDERED: hydrALAZINE 20 MG/ML VIAL SLOW IVP PRN (14:02)
[2017-06-08] MEDS ORDERED: Ondansetron HCl/PF 4 MG/2 ML Vial IVP PRN (14:02)
[2017-06-08] MEDS ORDERED: HYDROcodone/Acetaminophen 5/325 mg Tablet PO PRN (14:02)
[2017-06-08] MEDS ORDERED: Mag-Al 1200 mg/1200 mg/30 ML UDCUP PO PRN (14:02)
[2017-06-08] MEDS ORDERED: Promethazine HCl 25 MG/ML VIAL IM PRN (14:02)
[2017-06-08 14:21] LABS: #Eosinphils 0.1 thou/uL (0.0-0.7); #Lymphocytes 1.4 thou/uL (1.20-3.40); #Monocytes 0.3 thou/uL (0.11-0.59); #Neutrophils 4.1 thou/uL (1.40-6.50); %Basophils 0.5 % (0.0-1.0); %Eosinophils 2.3 % (0.0-10.0); %Lymphocytes 23.3 % (21.0-51.0); %Monocytes 5.5 % (0.0-10.0); %Neutrophils 68.4 % (42.0-75.0); Hemoglobin 9.2 g/dL (14.0-18.0); Mean Corpuscular HGB CONC 33.4 g/dL (32.0-36.0); Mean Corpuscular Volume 92.9 fl (80.0-94.0); Mean Platelet Volume 8.9 fL (7.4-10.4); Platelet Count 65 thou/uL (130-400); RBC Distribution Width 12.9 % (11.5-14.5); Red Blood Cell (RBC) Count 2.95 mill/uL (4.70-6.10)
[2017-06-08] MEDS ORDERED: Dextrose 50% Abboject 50 ML SYRINGE SLOW IVP PRN (14:23)
[2017-06-08] MEDS ORDERED: Dextrose 5% in Water 1,000 ML IV PRN (14:23)
[2017-06-08 14:26] LABS: INR-International Normal Ratio 1.5; PTT 46.9 SEC (22.9-36.1); Prothrombin Time 18.5 SEC (12.0-14.7)
[2017-06-08 14:40] LABS: Anion Gap 9 mmol/L (10-20); BUN (Urea Nitrogen) 13 mg/dL (8.4-25.7); Calc. Creatinine Clearance 200 mL/min (70-130); Calcium 7.8 mg/dL (7.8-10.44); Carbon Dioxide 26 mmol/L (22-29); Chloride 106 mmol/L (98-107); Estimated GFR-MDRD Greater than 90; Glucose 130 mg/dL (70-105); Potassium 3.4 mmol/L (3.5-5.1); Sodium 138 mmol/L (136-145)
--- NOTE | 2017-06-08 14:45 | RAD ---
CHEST 1 VIEW: Date: 06/08/17 HISTORY: Heart surgery. Follow-up. COMPARISON: 06/05/17. FINDINGS: Cardiac silhouette is magnified, enlarged, and partially obscured by patchy bibasilar infiltrates martinez t are similar in appearance to the previous exam. Pulmonary vasculature remains engorged with bilater al perihilar infiltrates. Mediastinum is midline with postoperative changes. Radiopaque drains overli e the mediastinum. Tip of a right subclavian central venous catheter projects over the right atrium. Tip of an endotracheal catheter overlies the thoracic inlet. satellite project site monitor leads overlie the chest. IMPRESSION: Interval postoperative change of the mediastinum as detailed above. POS: [facility]
[2017-06-08] MEDS: CEFAZOLIN/Water 2 GM/20 ML SYRINGE SLOW IVP SCH ×2 (14:58→21:06)
[2017-06-08] MEDS: Insulin Regular 300 UNITS/3 ML VIAL SC PRN ×3 (14:59→22:24)
[2017-06-08] MEDS: Sodium Chloride 0.9% 1,000 ML IV SCH (15:13)
[2017-06-08] MEDS: Potassium Chloride 20 MEQ/100 ML PREMIX BAG IVPB PRN ×2 (15:24→21:17)
--- NOTE | 2017-06-08 15:28 | OP ---
PREOPERATIVE DIAGNOSIS: Coronary artery disease. POSTOPERATIVE DIAGNOSIS: Coronary artery disease. PROCEDURE: Coronary bypass graft x4, left internal mammary artery to a 1.5 mm disease diagonal that would not be redo target, saphenous vein graft to a 2 mm OM, saphenous vein graft to a 1.25-1.5 mm di seased PDA, radial artery to a 1.25 mm intramyocardial ramus. SURGEON: Jaison Cross M.D. CLASSROOM ASSISTANT: Nash. TRANSFUSION: None. FINDINGS: Poor coronary targets as expected, large heart. PROCEDURE IN DETAIL: After adequate anesthesia had been obtained, the patient was prepped and draped . Dr. Cao did an endovascular vein harvest to the left greater saphenous vein while I harvested th e left radial artery after ensuring good collateral flow. Following this, I proceeded to do a median sternotomy entering the right pleura in one small area and then harvesting the left internal mammary artery, dividing it distally and passed posterior to the divided thymus gland. After heparinization had been measured, aorta and right atrium cannulas were placed and cardiopulmonary bypass was instit uted. Vessels were inspected for grafting. The aorta crossclamped and 1200 mL of [place] cardiople gic solution was given. Individually, the PDA, obtuse marginal, ramus, and diagonal grafts were comp leted. Following this, the cross-clamp was removed and the partial occluding clamp placed, and 2 pro ximal anastomoses performed with vein grafts into the kevin of the OM vein graft was placed at the rad ial artery. Following this, distal anastomoses were inspected in the OM and right coronary anastomos is required a suture for low suture line. Following this, the patient was weaned from cardiopulmonar y bypass, cannulas were removed, and protamine was given systemically. Following this, mediastinal a nd bilateral pleural drains were placed and then after ensuring grass line nicely, the sternum was re approximated with #7 interrupted wire using vancomycin paste on the sternal edges, platelet-enriched blood, and platelet-poor plasma.
[2017-06-08 15:37] LABS: CO2 Tension 44.9 mmHg (35.0-45.0); pH, Arterial 7.37 (7.35-7.45)
[2017-06-08 15:38] LABS: ALV-art Gradient 221.775 (0-20); Actual Bicarbonate (HCO3a) 25.6 mEq/L (22-26); Base Excess (BEa) 0.1 mEq/L (0 (+/-) 2.5); Calcium, Ionized 1.2 mmol/L (1.12-1.30); Hematocrit-ABG 29.5 % (42.0-52.0); O2 Tension (PaO2) 78.6 mmHg (80.0-100.0); Puncture Site ALINE
[2017-06-08] MEDS ORDERED: Papaverine 60 MG/2 ML VIAL ONE (15:56)
[2017-06-08] MEDS ORDERED: Protamine Sulfate 250 MG/25 ML VIAL ONE (15:56)
[2017-06-08] MEDS ORDERED: Sodium Bicarb 50 MEQ/50 ML VIAL ONE (15:56)
[2017-06-08] MEDS ORDERED: Propofol 200 MG/20 ML VIAL ONE (15:56)
[2017-06-08] MEDS ORDERED: Cardioplegic Soln 1,000 ML BAG ONE (15:56)
[2017-06-08] MEDS ORDERED: Heparin 30,000 units/30 ml VIAL ONE (15:56)
[2017-06-08] MEDS ORDERED: Magnesium 5 GM/10 ML VIAL ONE (15:56)
[2017-06-08] MEDS ORDERED: Thrombin 5000 UNITS/5 ML VIAL ONE (15:56)
[2017-06-08] MEDS ORDERED: Lidocaine 2% PF 100 mg/5 ml Syringe ONE (15:56)
[2017-06-08] MEDS ORDERED: Lidocaine 1% PF 5 ML VIAL ONE (15:56)
[2017-06-08] MEDS ORDERED: Heparin 5,000 UNITS/ML VIAL ONE (15:56)
[2017-06-08] MEDS ORDERED: Potassium Chloride 60 MEQ/30 ML VIAL ONE (15:56)
[2017-06-08] MEDS ORDERED: Calcium Chloride 1 GM/10 ML Abboject SYRINGE ONE (15:56)
--- NOTE | 2017-06-08 18:51 | PRG ---
DATE OF SERVICE: 06/08/2017 Ms. Cole is doing well. He was scheduled for a bypass surgery today. OBJECTIVE: VITAL SIGNS: Blood pressure 105/57, pulse 72, temperature afebrile. LUNGS: Clear to auscultation. HEART: Regular rate and rhythm. ABDOMEN: Soft, nontender, nondistended. EXTREMITIES: No edema. IMPRESSION: 1. Non-Q-wave myocardial infarction. 2. Severe 3-vessel disease. 3. Diabetes mellitus. RECOMMENDATIONS: Mr. Cole is scheduled up for surgery today. He is on good appropriate medicine preop.
[2017-06-08 19:42] LABS: Hemoglobin 9.7 g/dL (14.0-18.0)
[2017-06-08 19:57] LABS: Potassium 3.9 mmol/L (3.5-5.1)
[2017-06-08] MEDS: Fentanyl 100 MCG/2 ML VIAL SLOW IVP PRN ×2 (20:57→22:09)
--- NOTE | 2017-06-08 21:01 | EKG ---
Test Reason : POST CABG Blood Pressure : / mmHG Vent. Rate : 065 BPM Atrial Rate : 065 BPM P-R Int : 142 ms QRS Dur : 112 ms QT Int : 526 ms P-R-T Axes : 058 075 071 degrees QTc Int : 547 ms Sinus rhythm with frequent Premature ventricular complexes Cannot rule out Anterior infarct , age undetermined Prolonged QT Abnormal ECG When compared with ECG of 05-JUN-2017 13:58, Premature ventricular complexes are now Present Vent. rate has decreased BY [address] less elevated in Anterior leads Non-specific change in ST segment in Lateral leads T wave inversion no longer evident in Lateral leads Confirmed by ALYSSIA BRYANT ([id number]) on 06/08/2017 9:00:56 PM Referred By: ZEB Confirmed By:ALYSSIA BRYANT
[2017-06-08] MEDS: Famotidine/PF 20 mg/2ml Vial SLOW IVP SCH (21:03)
--- NOTE | 2017-06-08 21:20 | EKG ---
Test Reason : CHEST PAIN SOB Blood Pressure : / mmHG Vent. Rate : 117 BPM Atrial Rate : 117 BPM P-R Int : 140 ms QRS Dur : 118 ms QT Int : 336 ms P-R-T Axes : 044 038 161 degrees QTc Int : 468 ms Sinus tachycardia Possible Left atrial enlargement Left ventricular hypertrophy with QRS widening and repolarization abnormality Abnormal ECG Confirmed by ALYSSIA BRYANT ([id number]) on 06/08/2017 9:20:07 PM Referred By: Confirmed By:ALYSSIA BRYANT
--- NOTE | 2017-06-08 21:20 | EKG ---
Test Reason : CHEST PAIN SOB Blood Pressure : / mmHG Vent. Rate : 116 BPM Atrial Rate : 116 BPM P-R Int : 142 ms QRS Dur : 116 ms QT Int : 334 ms P-R-T Axes : 043 038 162 degrees QTc Int : 464 ms Sinus tachycardia Possible Left atrial enlargement Left ventricular hypertrophy with QRS widening and repolarization abnormality Abnormal ECG Confirmed by ALYSSIA BRYANT ([id number]) on 06/08/2017 9:19:47 PM Referred By: Confirmed By:ALYSSIA BRYANT
[2017-06-08] MEDS: HYDROcodone/Acetaminophen 5/325 mg Tablet PO PRN (23:04)
[2017-06-09] MEDS: Insulin Regular 300 UNITS/3 ML VIAL SC PRN ×5 (01:58→22:13)
--- NOTE | 2017-06-09 02:39 | CON ---
DATE OF CONSULTATION: 06/08/2017 Mr. Cole is a 57-year-old male. He presented with a week of shortness of breath, chest discomfort. Cardiac catheterization showed mu ltivessel coronary artery disease with a depressed ejection fraction. Apparently he had this at [facility] and declined operative intervention and really it did not sound like taking care of himse lf after his discharge. He successfully undergone coronary artery bypass grafting and this afternoon was admitted to the [facility] Care Unit. I was consulted to follow along with the other physicians because of his presence to critical care. He had a left internal mammary to a diagonal lesion that Dr. Cross says would not be a redo target of saphenous vein graft to the obtuse marginal, saphenous vein graft to a posterior diagonal and a radi al artery to an intramyocardial ramus. The targets were all felt to be poor. He is tentatively scheduled to be weaned per protocol. PAST MEDICAL HISTORY: 1. Remarkable for diabetes, hypertension with very poor medical compliance with diet or medications. 2. History of myocardial infarction in the past. 3. History of coronary artery disease as mentioned in the past. 4. 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 SOCIAL HISTORY: He has smoked until 10 years ago. He is not a daily drinker. He does not use drugs . FAMILY HISTORY: Positive for diabetes. ALLERGIES: He reports no drug allergies. PHYSICAL EXAMINATION: VITAL SIGNS: His blood pressure 100/58, heart rate 69, respiratory rate is 12, oximetry is 100%. HEENT: Pupils are equal. Sclerae is anicteric. LUNGS: Clear anteriorly. HEART: Regular rhythm. ABDOMEN: Soft. EXTREMITIES: Without asymmetry. LABORATORY FINDINGS: White count 6.9, hemoglobin 9.2, platelets 101,000 preoperative, hemoglobin thi s evening is 9.7. Sodium 138, potassium 3.4, chloride 106, bicarb 26, BUN 13, creatinine 0.6, glucose 130. PH 7.37, CO 2 of 44, pO2 of 78 on a rate of 12, tidal volume 600. IMPRESSION: 1. Status post coronary artery bypass grafting. 2. Diabetes. 3. Hypertension. 4. Medical noncompliance. 5. Obesity. PLAN: Weaning per protocol as per Dr. Cross. We will follow along with the other physicians caring for him. CRITICAL CARE TIME: 30 minutes.
[2017-06-09] MEDS: Sodium Chloride 0.9% 1,000 ML IV SCH (03:24)
[2017-06-09 03:54] LABS: Actual Bicarbonate (HCO3a) 24.4 mEq/L (22-26); Base Excess (BEa) 0.1 mEq/L (0 (+/-) 2.5); Hematocrit-ABG 27.5 % (42.0-52.0); Hemoglobin (Hb) 9.4 g/dL (14.0-18.0); O2 Tension (PaO2) 76.4 mmHg (80.0-100.0); pH, Arterial 7.39 (7.35-7.45)
[2017-06-09 04:50] LABS: #Lymphocytes 0.9 thou/uL (1.20-3.40); #Monocytes 0.5 thou/uL (0.11-0.59); #Neutrophils 3.4 thou/uL (1.40-6.50); %Basophils 0.3 % (0.0-1.0); %Eosinophils 0.1 % (0.0-10.0); %Lymphocytes 19.4 % (21.0-51.0); %Monocytes 10.3 % (0.0-10.0); Anion Gap 9 mmol/L (10-20); BUN (Urea Nitrogen) 16 mg/dL (8.4-25.7); Calc. Creatinine Clearance 185 mL/min (70-130); Calcium 7.2 mg/dL (7.8-10.44); Carbon Dioxide 27 mmol/L (22-29); Chloride 107 mmol/L (98-107); Estimated GFR-MDRD Greater than 90; Glucose 126 mg/dL (70-105); Hemoglobin 9.8 g/dL (14.0-18.0); Mean Corpuscular HGB CONC 33.2 g/dL (32.0-36.0); Mean Corpuscular Hemoglobin 30.9 pg (27.0-31.0); Mean Platelet Volume 8.7 fL (7.4-10.4); Platelet Count 92 thou/uL (130-400); RBC Distribution Width 12.8 % (11.5-14.5); Red Blood Cell (RBC) Count 3.16 mill/uL (4.70-6.10); Sodium 139 mmol/L (136-145); White Blood Cell (WBC) Count 4.8 thou/uL (4.8-10.8)
[2017-06-09] MEDS: CEFAZOLIN/Water 2 GM/20 ML SYRINGE SLOW IVP SCH (05:02)
[2017-06-09] MEDS: Potassium Chloride 20 MEQ/100 ML PREMIX BAG IVPB PRN (06:42)
[2017-06-09] MEDS: HYDROcodone/Acetaminophen 5/325 mg Tablet PO PRN ×3 (08:06→22:12)
[2017-06-09] MEDS: Famotidine/PF 20 mg/2ml Vial SLOW IVP SCH ×2 (08:09→20:27)
--- NOTE | 2017-06-09 08:24 | RAD ---
PORTABLE AP CHEST RADIOGRAPH: Date: 06-09-17 History: Post open heart surgery. Comparison: 06-08-17 FINDINGS: This exam is obtained a very shallow depth of inspiration which accentuates the cardiac silhouette an d bronchovascular markings. The endotracheal tube has been removed. Right subclavian central venous c atheter and mediastinal drains remain in place. Probable mild atelectasis at each lung base, some of which is probably attributable to the very shallow depth of inspiration. IMPRESSION: 1. Suboptimal depth of inspiration accentuating the bronchovascular markings. 2. Interval removal of endotracheal tube. POS: [facility]
[2017-06-09] MEDS ORDERED: Carvedilol 6.25 MG TAB PO SCH (09:00)
[2017-06-09] MEDS ORDERED: Aspirin 325 MG TAB PO SCH (09:00)
--- NOTE | 2017-06-09 09:03 | PRG ---
DATE OF SERVICE: 06/09/2017 Mr. Cole recently underwent bypass surgery. He is doing well. He is extubated and sitting up in a chair. Chest tube is still in place. PHYSICAL EXAMINATION: VITAL SIGNS: Blood pressure 112/65, pulse 85, temperature afebrile. GENERAL: Awake and alert. LUNGS: Clear to auscultation. CARDIAC: Regular rate and rhythm. ABDOMEN: Soft, nontender, nondistended. EXTREMITIES: No edema. PERTINENT CARDIOVASCULAR MEDICATIONS: Include aspirin, atorvastatin. IMPRESSION: 1. Coronary artery disease. 2. Status bypass surgery. 3. Diabetes mellitus. RECOMMENDATIONS: 1. Add low dose Lopressor. 2. Continue aspirin in addition to statin therapy. 3. When blood pressure is more stable would restart lisinopril at a lower dose. 4. Incentive spirometry and rehab. 5. Chest tube per Dr. Ellis Cao.
[2017-06-09] MEDS: Carvedilol 3.125 MG TAB PO SCH ×2 (09:30→20:27)
--- NOTE | 2017-06-09 11:03 | PDOC.PN ---
- Subjective Encounter Start Date: 06/09/17 Encounter Start Time: 11:30 Subjective: Patient feeling ok s/p CABG. Cough better though still with some. No SOB. - Objective Resuscitation Status: Resuscitation Status FULL:Full Resuscitation MAR Reviewed: Yes Vital Signs & Weight: Vital Signs (12 hours) Temp Pulse Resp Pulse Ox 06/09/17 08:00 96 F L 06/09/17 07:27 99 06/09/17 07:25 84 17 99 06/09/17 03:00 98.6 F 06/09/17 01:03 90 20 100 06/09/17 00:00 99.1 F Weight Admit Weight 242 lb 8.136 oz Weight 242 lb 8.136 oz Most Recent Monitor Data Heart Rate from ECG 78 NIBP 103/57 NIBP BP-Mean 72 Respiration from ECG 37 SpO2 100 I&O: 06/08/17 06/09/17 06/10/17 06:59 06:59 06:59 Intake Total 1348 2150 740 Output Total 1633 1945 195 Balance -285 205 545 Result Diagrams: 06/09/17 04:00 06/09/17 04:00 Additional Labs: Accuchecks 06/09/17 06/09/17 06/08/17 06:20 01:57 22:24 POC Glucose 122 H 138 H 140 H 06/08/17 06/08/17 06/08/17 18:05 14:10 13:21 POC Glucose 129 H 136 H 138 H 06/08/17 06/08/17 06/08/17 12:30 11:59 11:17 POC Glucose 146 H 136 H 134 H 06/08/17 10:13 POC Glucose 128 H Phys Exam - Physical Examination Constitutional: NAD HEENT: moist MMs Respiratory: no wheezing, no rales, no rhonchi, clear to auscultation bilateral sternotomy wound closed, no TTP Cardiovascular: RRR, no significant murmur Gastrointestinal: soft, positive bowel sounds Neurological: non-focal, moves all 4 limbs Psychiatric: normal affect, A&O x 3 Dx/Plan (1) NSTEMI (non-ST elevated myocardial infarction) Code(s): I21.4 - NON-ST ELEVATION (NSTEMI) MYOCARDIAL INFARCTION Status: Acute (2) CAD (coronary artery disease), [place] coronary artery Code(s): I25.10 - ATHSCL HEART DISEASE OF COUNCIL CORONARY ARTERY W/O ANG PCTRS Status: Acute Comment: Severe multivessel disease s/p CABG x4 on 06/09/2017 (3) Diabetes Code(s): E11.9 - TYPE 2 DIABETES MELLITUS WITHOUT COMPLICATIONS Status: Chronic Qualifiers: Diabetes mellitus type: type 2 (4) Bronchitis Code(s): J40 - BRONCHITIS, NOT SPECIFIED ACUTE OR CHRONIC Status: Acute (5) HTN (hypertension) Code(s): I10 - ESSENTIAL (PRIMARY) HYPERTENSION Status: Chronic (6) Obesity Code(s): E66.9 - OBESITY, UNSPECIFIED Status: Chronic Qualifiers: Body mass index: BMI 40.0-44.9 - Plan cont current plan of care * . - Discharge Day Encounter end time: 12:00
--- NOTE | 2017-06-09 18:28 | PRG ---
DATE OF SERVICE: 06/09/2017 SUBJECTIVE: Mr. Cole is doing well. OBJECTIVE: VITAL SIGNS: Blood pressure 115/58, heart rate 77, respiratory rate 20. LUNGS: Clear. HEART: Regular rhythm. ABDOMEN: Soft. LABORATORY DATA: White count 4.8, hemoglobin 9.8, platelets 92,000. Sodium 139, potassium 4, chlori de 107, bicarbonate 27, BUN 16, creatinine 0.67. IMPRESSION: 1. Status post coronary artery bypass grafting. 2. Obesity. 3. Diabetes and hypertension. 4. History of medical noncompliance. 5. Peripheral vascular disease. 6. History of smoking. He is a nonsmoker now. Explained to him that exercising compliance with medications will be the brewer to getting down the road as long as he would like. He says he will be more compliant in the future. He is stable to move ou t of the Critical Care Unit once the other physicians all agree.
[2017-06-10] MEDS: Insulin Regular 300 UNITS/3 ML VIAL SC PRN ×5 (03:13→21:01)
[2017-06-10 04:30] LABS: #Lymphocytes 1.5 thou/uL (1.20-3.40); #Monocytes 0.7 thou/uL (0.11-0.59); #Neutrophils 5.6 thou/uL (1.40-6.50); %Basophils 0.1 % (0.0-1.0); %Lymphocytes 18.9 % (21.0-51.0); %Monocytes 9.1 % (0.0-10.0); %Neutrophils 71.9 % (42.0-75.0); Hemoglobin 9.7 g/dL (14.0-18.0); Mean Corpuscular HGB CONC 32.7 g/dL (32.0-36.0); Mean Corpuscular Hemoglobin 30.5 pg (27.0-31.0); Mean Corpuscular Volume 93.3 fl (80.0-94.0); Mean Platelet Volume 8.3 fL (7.4-10.4); Platelet Count 95 thou/uL (130-400); RBC Distribution Width 12.9 % (11.5-14.5); Red Blood Cell (RBC) Count 3.18 mill/uL (4.70-6.10); White Blood Cell (WBC) Count 7.8 thou/uL (4.8-10.8)
[2017-06-10 04:38] LABS: Anion Gap 7 mmol/L (10-20); BUN (Urea Nitrogen) 18 mg/dL (8.4-25.7); Calc. Creatinine Clearance 196 mL/min (70-130); Calcium 7.7 mg/dL (7.8-10.44); Carbon Dioxide 29 mmol/L (22-29); Chloride 106 mmol/L (98-107); Estimated GFR-MDRD Greater than 90; Glucose 129 mg/dL (70-105); Potassium 4.1 mmol/L (3.5-5.1); Sodium 138 mmol/L (136-145)
[2017-06-10] MEDS ORDERED: Ondansetron HCl/PF 4 MG/2 ML Vial IVP PRN (07:35)
[2017-06-10] MEDS ORDERED: Bisacodyl 10 MG SUPP PR PRN (07:35)
[2017-06-10] MEDS ORDERED: Mineral Oil ENEMA PR PRN (07:35)
[2017-06-10] MEDS ORDERED: Nitroglycerin 0.4 MG TAB 1 EACH SL PRN (07:35)
[2017-06-10] MEDS ORDERED: Fentanyl 100 MCG/2 ML VIAL SLOW IVP PRN (07:35)
[2017-06-10] MEDS ORDERED: HYDROcodone/Acetaminophen 5/325 mg Tablet PO PRN (07:35)
[2017-06-10] MEDS ORDERED: Bisacodyl 5 MG TAB PO PRN (07:35)
[2017-06-10] MEDS ORDERED: Guaifenesin DM 100-10/5 ML UDCUP PO PRN (07:35)
[2017-06-10] MEDS ORDERED: Mag-Al 1200 mg/1200 mg/30 ML UDCUP PO PRN (07:35)
[2017-06-10] MEDS ORDERED: Dextrose 50% Abboject 50 ML SYRINGE SLOW IVP PRN (08:09)
[2017-06-10] MEDS ORDERED: Dextrose 5% in Water 1,000 ML IV PRN (08:09)
--- NOTE | 2017-06-10 08:37 | PRG ---
DATE OF SERVICE: 06/10/2017 Mr. Cole is doing better. Chest tube has been removed. PHYSICAL EXAMINATION: VITAL SIGNS: Blood pressure 121/62, pulse 81, temperature 98. LUNGS: Clear to auscultation. HEART: Regular rate and rhythm. ABDOMEN: Soft, nontender, nondistended. EXTREMITIES: No edema. IMPRESSION: 1. Coronary artery disease. 2. Status post bypass surgery. 3. Ischemic cardiomyopathy. RECOMMENDATIONS: Continue aspirin. Atorvastatin has been added. Also will continue carvedilol. Wi ll add low dose lisinopril.
[2017-06-10] MEDS: HYDROcodone/Acetaminophen 5/325 mg Tablet PO PRN (08:51)
--- NOTE | 2017-06-10 08:51 | RAD ---
PORTABLE CHEST: COMPARISON: Prior day's exam. HISTORY: Postop open heart surgery. FINDINGS: Heart size is enlarged. There are postop sternotomy changes. A right-sided central line is present. Bibasilar atelectatic lung changes are present. IMPRESSION: Stable chest. POS: [facility]
[2017-06-10] MEDS: Polyethylene Glycol 3350 17 GM Packet PO SCH (08:53)
[2017-06-10] MEDS: Losartan 25 MG TAB PO SCH (08:54)
[2017-06-10] MEDS: Potassium Chloride 20 MEQ TAB PO SCH (08:54)
[2017-06-10] MEDS: Enoxaparin Sodium 40 MG/0.4 ML SYRINGE SC SCH (08:54)
[2017-06-10] MEDS: Carvedilol 3.125 MG TAB PO SCH ×2 (08:55→20:10)
[2017-06-10] MEDS: Famotidine 20 MG TAB PO SCH ×2 (08:55→20:10)
[2017-06-10] MEDS: Furosemide 40 MG TAB PO SCH ×2 (08:55→20:10)
[2017-06-10] MEDS: Aspirin 325 mg Enteric Coated Tablet PO SCH (08:55)
--- NOTE | 2017-06-10 18:31 | PRG ---
DATE OF SERVICE: 06/10/2017 SUBJECTIVE: Benji Cole has remained stable. OBJECTIVE: GENERAL: He is afebrile, heart rate is 79, respiratory rate is 24, oximetry is 95 on 2 liters, blood pressure 115/68. LUNGS: Clear. CARDIOVASCULAR: Regular rhythm. ABDOMEN: Soft. EXTREMITIES: Without edema. IMAGING: Chest radiograph reviewed by me shows no new infiltrates. IMPRESSION: 1. Status post coronary artery bypass grafting. 2. Diabetes. 3. Ischemic cardiomyopathy. 4. Diabetes. 5. Marginal medical compliance. PLAN: Continue supportive care with post-heart surgery rehabilitation, adjustment of medications. T here are no acute issues in the ICU at this point in time.
[2017-06-10] MEDS: Simvastatin 40 MG TAB PO SCH (20:10)
[2017-06-10] MEDS: Atorvastatin Calcium 40 MG TAB PO SCH (20:10)
[2017-06-11] MEDS: HYDROcodone/Acetaminophen 5/325 mg Tablet PO PRN ×4 (03:37→20:41)
--- NOTE | 2017-06-11 08:14 | PRG ---
DATE OF SERVICE: 06/11/2017 SUBJECTIVE: Mr. Cole is doing well. No chest pain or pressure noted. He has been transferred fr om the ICU to telemetry monitoring. He is currently on CV medications including beta antwon therapy , ARB, aspirin, and statin therapy. OBJECTIVE: VITAL SIGNS: Blood pressure 129/61, pulse 70, temperature 97.9. LUNGS: Clear to auscultation. CARDIAC: Regular rate and rhythm. ABDOMEN: Soft, nontender, nondistended. EXTREMITIES: No edema. PERTINENT LABORATORY DATA: No blood count this morning. IMPRESSION: 1. Severe coronary artery disease. 2. Status post bypass surgery. 3. Ischemic cardiomyopathy. RECOMMENDATIONS: 1. We would recommend a LifeVest given his LVEF of 30%-35%. 2. Continue ARB, beta-antwon therapy, aspirin, and statin treatment. 3. Ambulation and incentive spirometry.
--- NOTE | 2017-06-11 08:38 | PDOC.PN ---
- Subjective Encounter Start Date: 06/10/17 Encounter Start Time: 14:30 patient is seen today along with at bedside, pt is feeling good, he is not taking deep breaths and is shallow breathing encouraged to continue to use IS. - Objective Resuscitation Status: Resuscitation Status FULL:Full Resuscitation MAR Reviewed: Yes Vital Signs & Weight: Vital Signs (12 hours) Temp Pulse Resp BP Pulse Ox 06/11/17 07:52 97.7 F 70 18 129/61 9 L 06/11/17 03:28 97.7 F 76 19 135/63 96 06/11/17 01:19 98 06/10/17 21:53 97.9 F 72 22 H 126/96 H 98 Weight Admit Weight 242 lb 8.136 oz Weight 237 lb 12.8 oz Most Recent Monitor Data Heart Rate from ECG 72 NIBP 98/54 NIBP BP-Mean 74 Respiration from ECG 16 SpO2 97 I&O: 06/10/17 06/11/17 06/12/17 06:59 06:59 06:59 Intake Total 1470 1540 Output Total 1160 1120 Balance 310 420 Result Diagrams: 06/10/17 04:10 06/10/17 04:10 Additional Labs: Accuchecks 06/11/17 06/10/17 06/10/17 05:28 21:01 16:18 POC Glucose 156 H 129 H 152 H 06/10/17 10:56 POC Glucose 162 H Radiology Reviewed by me: Yes Phys Exam - Physical Examination HEENT: PERRLA, moist MMs Neck: no nodes, no JVD Respiratory: no wheezing, no rales Cardiovascular: RRR, no significant murmur Gastrointestinal: soft, non-tender Musculoskeletal: no edema, pulses present Neurological: non-focal, normal sensation Lymphatic: no nodes Psychiatric: normal affect, A&O x 3 Dx/Plan (1) Bronchitis Code(s): J40 - BRONCHITIS, NOT SPECIFIED ACUTE OR CHRONIC Status: Acute Comment: COntinue with prn NEbs. (2) CAD (coronary artery disease), [place] coronary artery Code(s): I25.10 - ATHSCL HEART DISEASE OF [place] CORONARY ARTERY W/O ANG PCTRS Status: Acute Comment: Severe multivessel disease s/p CABG x4 on 06/09/2017, [facility]. (3) NSTEMI (non-ST elevated myocardial infarction) Code(s): I21.4 - NON-ST ELEVATION (NSTEMI) MYOCARDIAL INFARCTION Status: Acute Comment: Continue wih BB, Guy, Aspirin (4) Diabetes Code(s): E11.9 - TYPE 2 DIABETES MELLITUS WITHOUT COMPLICATIONS Status: Chronic Qualifiers: Diabetes mellitus type: type 2 Comment: Well controlled, Continue w SSI. (5) HTN (hypertension) Code(s): I10 - ESSENTIAL (PRIMARY) HYPERTENSION Status: Chronic Comment: Well controlled at Goal, folow cardiology recommedations. (6) Obesity Code(s): E66.9 - OBESITY, UNSPECIFIED Status: Chronic Qualifiers: Body mass index: BMI 40.0-44.9 - Plan cont current plan of care, plan discussed w/ family, PT/OT, social security assessor, respiratory therapy, incentive spirometry, DVT proph w/lovenox * . - Discharge Day Encounter end time: 15:00 Review of Systems - Review of Systems Constitutional: weakness, malaise Eyes: negative: Pain, Vision Change, Conjunctivae Inflammation, Eyelid Inflammation, Redness, Other ENT: negative: Ear Pain, Ear Discharge, Nose Pain, Nose Discharge, Nose Congestion, Mouth Pain, Mouth Swelling, Throat Pain, Throat Swelling, Other Respiratory: Cough, Shortness of Breath Cardiovascular: negative: chest pain, palpitations, orthopnea, paroxysmal nocturnal dyspnea, edema, light headedness, other Gastrointestinal: negative: Nausea, Vomiting, Abdominal Pain, Diarrhea, Constipation, Melena, Hematochezia, Other Genitourinary: negative: Dysuria, Frequency, Incontinence, Hematuria, Retention , Other Musculoskeletal: negative: Neck Pain, Shoulder Pain, Arm Pain, Back Pain, Hand Pain, Leg Pain, Foot Pain, Other - Medications/Allergies Allergies/Adverse Reactions: Allergies Allergy/AdvReac Type Severity Reaction Status Date / Time No Known Allergies Allergy Unverified 06/05/17 06:45 Medications: Current Medications Hydrocodone Bitart/Acetaminophen ([place] 5/325) 1 tab PO Q4H PRN PRN Reason: Moderate Pain (4-6) Last Admin: 06/10/17 20:14 Dose: 1 tab Hydrocodone Bitart/Acetaminophen ([place] 5/325) 2 tab PO Q4H PRN PRN Reason: Severe Pain (7-10) Last Admin: 06/11/17 03:37 Dose: 2 tab Al Hydroxide/Mg Hydroxide (Maalox) 30 ml PO Q4H PRN PRN Reason: Indigestion Last Admin: 06/10/17 08:52 Dose: 30 ml Albuterol/Ipratropium (Duoneb) 3 ml NEB [id number] PRN PRN Reason: Respiratory Distress Aspirin (Ecotrin) 325 mg PO DAILY [facility] Last Admin: 06/10/17 08:55 Dose: 325 mg Atorvastatin Calcium (Lipitor) 40 mg PO HS [facility] Last Admin: 06/10/17 20:10 Dose: 40 mg Bisacodyl (Dulcolax) 10 mg PO Q12H PRN PRN Reason: Constipation Last Admin: 06/10/17 20:10 Dose: 10 mg Bisacodyl (Dulcolax) 10 mg [place] Q12H PRN PRN Reason: Constipation Carvedilol (Coreg) 3.125 mg PO BID [facility] Last Admin: 06/10/17 20:10 Dose: 3.125 mg Dextrose/Water (Dextrose 50%) 25 gm SLOW IVP PRN PRN PRN Reason: PER HYPOGLYCEMIC PROTOCOL Enoxaparin Sodium (Lovenox) 40 mg SC 0900 [facility] Last Admin: 06/10/17 08:54 Dose: 40 mg Famotidine (Pepcid) 20 mg PO BID [facility] Last Admin: 06/10/17 20:10 Dose: 20 mg Fentanyl (Sublimaze) 25 mcg SLOW IVP Q2H PRN PRN Reason: Moderate breakthrough pain Furosemide (Lasix) 40 mg PO BID [facility] Last Admin: 06/10/17 20:10 Dose: 40 mg Glucagon (Glucagon) 1 mg [place] PRN PRN PRN Reason: PER HYPOGLYCEMIC PROTOCOL Guaifenesin/Dextromethorphan (Robitussin Dm) 15 ml PO Q4H PRN PRN Reason: Cough Dextrose/Water (D5w) 1,000 mls @ 0 mls/hr IV INF PRN; As Directed PRN Reason: PRN HYPOGLYCEMIC PROTOCOL Insulin Human Regular (Humulin R) 0 units [place] Q4H PRN; Protocol PRN Reason: POST OP SLIDING SCALE Last Admin: 06/10/17 21:01 Dose: 2 unit Losartan Potassium (Cozaar) 25 mg PO DAILY [facility] Last Admin: 06/10/17 08:54 Dose: 25 mg Mineral Oil (Fleet Mineral Oil) 133 ml [place] DAILYPRN PRN PRN Reason: Constipation Nitroglycerin (Nitrostat) 0.4 mg SL Q5MIN PRN PRN Reason: Chest Pain Ondansetron HCl (Zofran) 4 mg IVP Q6H PRN PRN Reason: Nausea/Vomiting Polyethylene Glycol (Miralax) 17 gm PO DAILY [facility] Last Admin: 06/10/17 08:53 Dose: 17 gm Potassium Chloride (K-Dur) 20 meq PO QAM-WM [facility] Last Admin: 06/10/17 08:54 Dose: 20 meq Simvastatin (Zocor) 40 mg PO HS [facility] Last Admin: 06/10/17 20:10 Dose: 40 mg Sodium Chloride (Flush - Normal Saline) 10 ml IVF Q12HR [facility] Last Admin: 06/10/17 20:11 Dose: 10 ml Sodium Chloride (Flush - Normal Saline) 10 ml IVF PRN PRN PRN Reason: Saline Flush
[2017-06-11] MEDS: Carvedilol 3.125 MG TAB PO SCH ×2 (09:13→20:41)
[2017-06-11] MEDS: Polyethylene Glycol 3350 17 GM Packet PO SCH (09:13)
[2017-06-11] MEDS: Aspirin 325 mg Enteric Coated Tablet PO SCH (09:13)
[2017-06-11] MEDS: Potassium Chloride 20 MEQ TAB PO SCH (09:13)
[2017-06-11] MEDS: Enoxaparin Sodium 40 MG/0.4 ML SYRINGE SC SCH (09:13)
[2017-06-11] MEDS: Furosemide 40 MG TAB PO SCH ×2 (09:13→20:41)
[2017-06-11] MEDS: Losartan 25 MG TAB PO SCH (09:13)
[2017-06-11] MEDS: Famotidine 20 MG TAB PO SCH ×2 (09:13→20:40)
[2017-06-11] MEDS: Insulin Regular 300 UNITS/3 ML VIAL SC PRN (12:37)
--- NOTE | 2017-06-11 13:10 | PRG ---
DATE OF SERVICE: 06/11/2017 SUBJECTIVE: Benji Cole has no complaints. PHYSICAL EXAMINATION: VITAL SIGNS: He is afebrile, heart rate 70, respiratory rate 18, oximetry is 93% on 2 liters, blood pressure 95/51. LUNGS: Clear. HEART: Regular rhythm. ABDOMEN: Soft. LABORATORY DATA: There is no new lab today. IMPRESSION: 1. Status post coronary artery bypass grafting. 2. History of medical noncompliance. 3. Diabetes. 4. Ischemic cardiomyopathy. 5. Deconditioning. PLAN: Continue physical therapy, appears to be progressing. He appears to be medically stable.
[2017-06-11] MEDS: Atorvastatin Calcium 40 MG TAB PO SCH (20:40)
[2017-06-11] MEDS: Simvastatin 40 MG TAB PO SCH (20:41)
[2017-06-12] MEDS ORDERED: Acetaminophen 325 MG TAB PO PRN (01:59)
[2017-06-12] MEDS: Losartan 25 MG TAB PO SCH (08:01)
[2017-06-12] MEDS: Potassium Chloride 20 MEQ TAB PO SCH (08:02)
[2017-06-12] MEDS: Polyethylene Glycol 3350 17 GM Packet PO SCH (08:02)
[2017-06-12] MEDS: HYDROcodone/Acetaminophen 5/325 mg Tablet PO PRN ×4 (08:02→22:26)
[2017-06-12] MEDS: Carvedilol 3.125 MG TAB PO SCH ×2 (08:02→22:25)
[2017-06-12] MEDS: Aspirin 325 mg Enteric Coated Tablet PO SCH (08:02)
[2017-06-12] MEDS: Furosemide 40 MG TAB PO SCH ×2 (08:02→22:25)
[2017-06-12] MEDS: Enoxaparin Sodium 40 MG/0.4 ML SYRINGE SC SCH (08:02)
[2017-06-12] MEDS: Famotidine 20 MG TAB PO SCH ×2 (08:02→22:25)
[2017-06-12] MEDS: Insulin Regular 300 UNITS/3 ML VIAL SC PRN (11:52)
[2017-06-12] MEDS ORDERED: Metolazone 5 MG TAB PO SCH (12:30)
--- NOTE | 2017-06-12 13:30 | PRG ---
DATE OF SERVICE: 06/12/2017 SUBJECTIVE: This morning, he is weak. He has got a cough, but denies any shortness of breath. OBJECTIVE: VITAL SIGNS: Sats only 98 on room air, temperature is 97, blood pressure 123/61. CHEST: Decreased breath sounds without any wheezing. CARDIAC: Normal S1, S2. ABDOMEN: Soft, no masses. IMPRESSION: Status post coronary artery bypass graft, obesity, hypoxemia, probably has obstructive s leep apnea. PLAN: Continue nebulizer treatments, supportive care, PT, probably outpatient sleep study.
--- NOTE | 2017-06-12 14:07 | PDOC.PN ---
- Subjective Encounter Start Date: 06/11/17 Encounter Start Time: 15:00 Patient is bettie today, No concenr snoted, Waiting for Life Vest for cardiac support. - Objective Resuscitation Status: Resuscitation Status FULL:Full Resuscitation MAR Reviewed: Yes Vital Signs & Weight: Vital Signs (12 hours) Temp Pulse Pulse Pulse Resp BP BP 06/12/17 12:45 69 66 113/57 L 113/55 L 06/12/17 11:05 97.2 F L 65 18 06/12/17 07:24 97.6 F 71 18 06/12/17 07:17 97.6 F 71 18 06/12/17 03:37 97.5 F L 64 18 BP Pulse Ox Pulse Ox Pulse Ox 06/12/17 12:45 97 99 06/12/17 11:05 113/55 L 99 06/12/17 07:24 90 L 06/12/17 07:17 123/61 90 L 06/12/17 03:37 107/57 L 98 Weight Admit Weight 242 lb 8.136 oz Weight 234 lb 4.8 oz Most Recent Monitor Data Heart Rate from ECG 72 NIBP 98/54 NIBP BP-Mean 74 Respiration from ECG 16 SpO2 97 I&O: 06/11/17 06/12/17 06/13/17 06:59 06:59 06:59 Intake Total 1540 730 Output Total 1120 300 Balance 420 430 Result Diagrams: 06/10/17 04:10 06/10/17 04:10 Additional Labs: Accuchecks 06/12/17 06/12/17 06/11/17 11:07 05:58 17:13 POC Glucose 156 H 140 H 131 H 06/11/17 11:05 POC Glucose 159 H Phys Exam - Physical Examination HEENT: PERRLA, moist MMs Neck: no nodes, no JVD Respiratory: no wheezing, no rales Cardiovascular: RRR, no significant murmur Gastrointestinal: soft, non-tender Musculoskeletal: edema present Neurological: non-focal, normal sensation Lymphatic: no nodes Psychiatric: normal affect Dx/Plan (1) Bronchitis Code(s): J40 - BRONCHITIS, NOT SPECIFIED ACUTE OR CHRONIC Status: Acute Comment: COntinue with prn NEbs. (2) CAD (coronary artery disease), [place] coronary artery Code(s): I25.10 - ATHSCL HEART DISEASE OF [place] CORONARY ARTERY W/O ANG PCTRS Status: Acute Comment: Severe multivessel disease s/p CABG x4 on 06/09/2017, waiting for life vest. (3) NSTEMI (non-ST elevated myocardial infarction) Code(s): I21.4 - NON-ST ELEVATION (NSTEMI) MYOCARDIAL INFARCTION Status: Acute Comment: Continue wih BB, Guy, Aspirin (4) Diabetes Code(s): E11.9 - TYPE 2 DIABETES MELLITUS WITHOUT COMPLICATIONS Status: Chronic Qualifiers: Diabetes mellitus type: type 2 Comment: Well controlled, Continue w SSI. (5) HTN (hypertension) Code(s): I10 - ESSENTIAL (PRIMARY) HYPERTENSION Status: Chronic Comment: Well controlled at Goal, folow cardiology recommedations. (6) Obesity Code(s): E66.9 - OBESITY, UNSPECIFIED Status: Chronic Qualifiers: Body mass index: BMI 40.0-44.9 - Plan cont current plan of care, PT/OT, social media project manager, respiratory therapy, incentive spirometry, out of bed/ambulate, DVT proph w/lovenox * . - Discharge Day Encounter end time: 15:35 Review of Systems - Review of Systems Constitutional: negative: fever, chills, sweats, weakness, malaise, other Eyes: negative: Pain, Vision Change, Conjunctivae Inflammation, Eyelid Inflammation, Redness, Other ENT: negative: Ear Pain, Ear Discharge, Nose Pain, Nose Discharge, Nose Congestion, Mouth Pain, Mouth Swelling, Throat Pain, Throat Swelling, Other Respiratory: Cough, Shortness of Breath Cardiovascular: edema. negative: chest pain, palpitations, orthopnea, paroxysmal nocturnal dyspnea, light headedness, other Gastrointestinal: negative: Nausea, Vomiting, Abdominal Pain, Diarrhea, Constipation, Melena, Hematochezia, Other Musculoskeletal: negative: Neck Pain, Shoulder Pain, Arm Pain, Back Pain, Hand Pain, Leg Pain, Foot Pain, Other - Medications/Allergies Allergies/Adverse Reactions: Allergies Allergy/AdvReac Type Severity Reaction Status Date / Time No Known Allergies Allergy Unverified 06/05/17 06:45 Medications: Current Medications Acetaminophen (Tylenol) 650 mg PO Q6H PRN PRN Reason: Headache/Fever or Pain Last Admin: 06/12/17 02:04 Dose: 650 mg Hydrocodone Bitart/Acetaminophen ([place] 5/325) 1 tab PO Q4H PRN PRN Reason: Moderate Pain (4-6) Last Admin: 06/10/17 20:14 Dose: 1 tab Hydrocodone Bitart/Acetaminophen ([place] 5/325) 2 tab PO Q4H PRN PRN Reason: Severe Pain (7-10) Last Admin: 06/12/17 12:04 Dose: 2 tab Al Hydroxide/Mg Hydroxide (Maalox) 30 ml PO Q4H PRN PRN Reason: Indigestion Last Admin: 06/10/17 08:52 Dose: 30 ml Albuterol/Ipratropium (Duoneb) 3 ml NEB [id number] PRN PRN Reason: Respiratory Distress Aspirin (Ecotrin) 325 mg PO DAILY [facility] Last Admin: 06/12/17 08:02 Dose: 325 mg Atorvastatin Calcium (Lipitor) 40 mg PO HS [facility] Last Admin: 06/11/17 20:40 Dose: 40 mg Bisacodyl (Dulcolax) 10 mg PO Q12H PRN PRN Reason: Constipation Last Admin: 06/10/17 20:10 Dose: 10 mg Bisacodyl (Dulcolax) 10 mg [place] Q12H PRN PRN Reason: Constipation Carvedilol (Coreg) 3.125 mg PO BID [facility] Last Admin: 06/12/17 08:02 Dose: 3.125 mg Dextrose/Water (Dextrose 50%) 25 gm SLOW IVP PRN PRN PRN Reason: PER HYPOGLYCEMIC PROTOCOL Enoxaparin Sodium (Lovenox) 40 mg SC 0900 [facility] Last Admin: 06/12/17 08:02 Dose: 40 mg Famotidine (Pepcid) 20 mg PO BID [facility] Last Admin: 06/12/17 08:02 Dose: 20 mg Fentanyl (Sublimaze) 25 mcg SLOW IVP Q2H PRN PRN Reason: Moderate breakthrough pain Furosemide (Lasix) 40 mg PO BID [facility] Last Admin: 06/12/17 08:02 Dose: 40 mg Glucagon (Glucagon) 1 mg SC PRN PRN PRN Reason: PER HYPOGLYCEMIC PROTOCOL Guaifenesin/Dextromethorphan (Robitussin Dm) 15 ml PO Q4H PRN PRN Reason: Cough Dextrose/Water (D5w) 1,000 mls @ 0 mls/hr IV INF PRN; As Directed PRN Reason: PRN HYPOGLYCEMIC PROTOCOL Insulin Human Regular (Humulin R) 0 units [place] Q4H PRN; Protocol PRN Reason: POST OP SLIDING SCALE Last Admin: 06/12/17 11:52 Dose: 3 unit Losartan Potassium (Cozaar) 25 mg PO DAILY [facility] Last Admin: 06/12/17 08:01 Dose: 25 mg Metolazone (Zaroxolyn) 5 mg PO NOW [facility] Stop: 06/12/17 15:00 Last Admin: 06/12/17 12:31 Dose: 5 mg Metolazone (Zaroxolyn) 5 mg PO 0830 [facility] Mineral Oil (Fleet Mineral Oil) 133 ml [place] DAILYPRN PRN PRN Reason: Constipation Nitroglycerin (Nitrostat) 0.4 mg SL Q5MIN PRN PRN Reason: Chest Pain Ondansetron HCl (Zofran) 4 mg IVP Q6H PRN PRN Reason: Nausea/Vomiting Polyethylene Glycol (Miralax) 17 gm PO DAILY [facility] Last Admin: 06/12/17 08:02 Dose: Not Given Potassium Chloride (K-Dur) 20 meq PO QAM-WM [facility] Last Admin: 06/12/17 08:02 Dose: 20 meq Sodium Chloride (Flush - Normal Saline) 10 ml IVF Q12HR [facility] Last Admin: 06/12/17 08:03 Dose: 10 ml Sodium Chloride (Flush - Normal Saline) 10 ml IVF PRN PRN PRN Reason: Saline Flush
--- NOTE | 2017-06-12 15:05 | PDOC.PN ---
- Subjective Encounter Start Date: 06/12/17 Encounter Start Time: 13:00 Patient is seen today, alert and oriented, No other concern Noted, Pt feels he would wait on Dr. Cross recommedations. - Objective Resuscitation Status: Resuscitation Status FULL:Full Resuscitation MAR Reviewed: Yes Vital Signs & Weight: Vital Signs (12 hours) Temp Pulse Pulse Pulse Resp BP BP 06/12/17 12:45 69 66 113/57 L 113/55 L 06/12/17 11:05 97.2 F L 65 18 06/12/17 07:24 97.6 F 71 18 06/12/17 07:17 97.6 F 71 18 06/12/17 03:37 97.5 F L 64 18 BP Pulse Ox Pulse Ox Pulse Ox 06/12/17 12:45 97 99 06/12/17 11:05 113/55 L 99 06/12/17 07:24 90 L 06/12/17 07:17 123/61 90 L 06/12/17 03:37 107/57 L 98 Weight Admit Weight 242 lb 8.136 oz Weight 234 lb 4.8 oz Most Recent Monitor Data Heart Rate from ECG 72 NIBP 98/54 NIBP BP-Mean 74 Respiration from ECG 16 SpO2 97 I&O: 06/11/17 06/12/17 06/13/17 06:59 06:59 06:59 Intake Total 1540 730 Output Total 1120 300 Balance 420 430 Result Diagrams: 06/10/17 04:10 06/10/17 04:10 Additional Labs: Accuchecks 06/12/17 06/12/17 06/11/17 11:07 05:58 17:13 POC Glucose 156 H 140 H 131 H 06/11/17 11:05 POC Glucose 159 H Phys Exam - Physical Examination HEENT: PERRLA, moist MMs Neck: no nodes, no JVD Respiratory: no wheezing, no rales Cardiovascular: RRR, no significant murmur Gastrointestinal: soft, non-tender Musculoskeletal: no edema, pulses present Neurological: non-focal, normal sensation Dx/Plan (1) Bronchitis Code(s): J40 - BRONCHITIS, NOT SPECIFIED ACUTE OR CHRONIC Status: Acute Comment: COntinue with prn NEbs. (2) CAD (coronary artery disease), [place] coronary artery Code(s): I25.10 - ATHSCL HEART DISEASE OF [place] CORONARY ARTERY W/O ANG PCTRS Status: Acute Comment: Severe multivessel disease s/p CABG x4 on 06/09/2017, on life vest. (3) NSTEMI (non-ST elevated myocardial infarction) Code(s): I21.4 - NON-ST ELEVATION (NSTEMI) MYOCARDIAL INFARCTION Status: Acute Comment: Continue wih BB, Guy, Aspirin (4) Diabetes Code(s): E11.9 - TYPE 2 DIABETES MELLITUS WITHOUT COMPLICATIONS Status: Chronic Qualifiers: Diabetes mellitus type: type 2 Comment: Well controlled, Continue w SSI. (5) HTN (hypertension) Code(s): I10 - ESSENTIAL (PRIMARY) HYPERTENSION Status: Chronic Comment: Well controlled at Goal, folow cardiology recommedations. (6) Obesity Code(s): E66.9 - OBESITY, UNSPECIFIED Status: Chronic Qualifiers: Body mass index: BMI 40.0-44.9 - Plan cont current plan of care, plan discussed w/ family, PT/OT, incentive spirometry , DVT proph w/lovenox * . - Discharge Day Encounter end time: 13:35 Review of Systems - Review of Systems Constitutional: negative: fever, chills, sweats, weakness, malaise, other Eyes: negative: Pain, Vision Change, Conjunctivae Inflammation, Eyelid Inflammation, Redness, Other ENT: negative: Ear Pain, Ear Discharge, Nose Pain, Nose Discharge, Nose Congestion, Mouth Pain, Mouth Swelling, Throat Pain, Throat Swelling, Other Respiratory: negative: Cough, Dry, Shortness of Breath, Hemoptysis, SOB with Excertion, Pleuritic Pain, Sputum, Wheezing Cardiovascular: negative: chest pain, palpitations, orthopnea, paroxysmal nocturnal dyspnea, edema, light headedness, other Gastrointestinal: negative: Nausea, Vomiting, Abdominal Pain, Diarrhea, Constipation, Melena, Hematochezia, Other Musculoskeletal: negative: Neck Pain, Shoulder Pain, Arm Pain, Back Pain, Hand Pain, Leg Pain, Foot Pain, Other - Medications/Allergies Allergies/Adverse Reactions: Allergies Allergy/AdvReac Type Severity Reaction Status Date / Time No Known Allergies Allergy Unverified 06/05/17 06:45 Medications: Current Medications Acetaminophen (Tylenol) 650 mg PO Q6H PRN PRN Reason: Headache/Fever or Pain Last Admin: 06/12/17 02:04 Dose: 650 mg Hydrocodone Bitart/Acetaminophen ([place] 5/325) 1 tab PO Q4H PRN PRN Reason: Moderate Pain (4-6) Last Admin: 06/10/17 20:14 Dose: 1 tab Hydrocodone Bitart/Acetaminophen ([place] 5/325) 2 tab PO Q4H PRN PRN Reason: Severe Pain (7-10) Last Admin: 06/12/17 12:04 Dose: 2 tab Al Hydroxide/Mg Hydroxide (Maalox) 30 ml PO Q4H PRN PRN Reason: Indigestion Last Admin: 06/10/17 08:52 Dose: 30 ml Albuterol/Ipratropium (Duoneb) 3 ml NEB [id number] PRN PRN Reason: Respiratory Distress Aspirin (Ecotrin) 325 mg PO DAILY [facility] Last Admin: 06/12/17 08:02 Dose: 325 mg Atorvastatin Calcium (Lipitor) 40 mg PO HS [facility] Last Admin: 06/11/17 20:40 Dose: 40 mg Bisacodyl (Dulcolax) 10 mg PO Q12H PRN PRN Reason: Constipation Last Admin: 06/10/17 20:10 Dose: 10 mg Bisacodyl (Dulcolax) 10 mg [place] Q12H PRN PRN Reason: Constipation Carvedilol (Coreg) 3.125 mg PO BID [facility] Last Admin: 06/12/17 08:02 Dose: 3.125 mg Dextrose/Water (Dextrose 50%) 25 gm SLOW IVP PRN PRN PRN Reason: PER HYPOGLYCEMIC PROTOCOL Enoxaparin Sodium (Lovenox) 40 mg SC 0900 [facility] Last Admin: 06/12/17 08:02 Dose: 40 mg Famotidine (Pepcid) 20 mg PO BID [facility] Last Admin: 06/12/17 08:02 Dose: 20 mg Fentanyl (Sublimaze) 25 mcg SLOW IVP Q2H PRN PRN Reason: Moderate breakthrough pain Furosemide (Lasix) 40 mg PO BID [facility] Last Admin: 06/12/17 08:02 Dose: 40 mg Glucagon (Glucagon) 1 mg SC PRN PRN PRN Reason: PER HYPOGLYCEMIC PROTOCOL Guaifenesin/Dextromethorphan (Robitussin Dm) 15 ml PO Q4H PRN PRN Reason: Cough Dextrose/Water (D5w) 1,000 mls @ 0 mls/hr IV INF PRN; As Directed PRN Reason: PRN HYPOGLYCEMIC PROTOCOL Insulin Human Regular (Humulin R) 0 units SC Q4H PRN; Protocol PRN Reason: POST OP SLIDING SCALE Last Admin: 06/12/17 11:52 Dose: 3 unit Losartan Potassium (Cozaar) 25 mg PO DAILY [facility] Last Admin: 06/12/17 08:01 Dose: 25 mg Metolazone (Zaroxolyn) 5 mg PO 0830 [facility] Mineral Oil (Fleet Mineral Oil) 133 ml [place] DAILYPRN PRN PRN Reason: Constipation Nitroglycerin (Nitrostat) 0.4 mg SL Q5MIN PRN PRN Reason: Chest Pain Ondansetron HCl (Zofran) 4 mg IVP Q6H PRN PRN Reason: Nausea/Vomiting Polyethylene Glycol (Miralax) 17 gm PO DAILY [facility] Last Admin: 06/12/17 08:02 Dose: Not Given Potassium Chloride (K-Dur) 20 meq PO QAM-WM [facility] Last Admin: 06/12/17 08:02 Dose: 20 meq Sodium Chloride (Flush - Normal Saline) 10 ml IVF Q12HR [facility] Last Admin: 06/12/17 08:03 Dose: 10 ml Sodium Chloride (Flush - Normal Saline) 10 ml IVF PRN PRN PRN Reason: Saline Flush
--- NOTE | 2017-06-12 16:44 | PDOC.CTH ---
Cardiology Progress Note - Subjective he is doing well. He went for a walk with PT and he feels worn out from it. He has his lifevest on now. - Objective Vital Signs Temp Pulse Pulse Pulse Resp BP BP 06/12/17 12:45 69 66 113/57 L 113/55 L 06/12/17 11:05 97.2 F L 65 18 06/12/17 07:24 97.6 F 71 18 06/12/17 07:17 97.6 F 71 18 BP Pulse Ox Pulse Ox Pulse Ox 06/12/17 12:45 97 99 06/12/17 11:05 113/55 L 99 06/12/17 07:24 90 L 06/12/17 07:17 123/61 90 L Admit Weight 242 lb 8.136 oz Weight 234 lb 4.8 oz 06/11/17 06/12/17 06/13/17 06:59 06:59 06:59 Intake Total 1540 730 Output Total 1120 300 Balance 420 430 - Physical Examination General/Neuro: alert & oriented x3, NAD Neck: no JVD present Lungs: unlabored respirations Heart: RRR Abdomen: NT/ND Extremities: + edema B (1+) - Telemetry Telemetry Rhythm: NSR - Labs Result Diagrams: 06/10/17 04:10 06/10/17 04:10 Troponin/CKMB CK-MB (CK-2) 7.6 ng/mL (0-6.6) H* 06/05/17 15:09 Troponin I 4.898 ng/mL (< 0.028) H* 06/05/17 23:14 - Assessment/Plan 1. Severe mujltivessel CAD. 2. s/p CABG 3. Ischemic CM EF at 30-35% PLAN; - Continue current medications, - Increase PT as tolerated. - Lifevest in place.
[2017-06-12] MEDS: Atorvastatin Calcium 40 MG TAB PO SCH (22:25)
[2017-06-13] MEDS: HYDROcodone/Acetaminophen 5/325 mg Tablet PO PRN (04:46)
[2017-06-13 05:57] LABS: Anion Gap 9 mmol/L (10-20); BUN (Urea Nitrogen) 16 mg/dL (8.4-25.7); Calc. Creatinine Clearance 181 mL/min (70-130); Calcium 8.1 mg/dL (7.8-10.44); Carbon Dioxide 33 mmol/L (22-29); Chloride 101 mmol/L (98-107); Estimated GFR-MDRD Greater than 90; Glucose 130 mg/dL (70-105); Potassium 3.5 mmol/L (3.5-5.1); Sodium 139 mmol/L (136-145)
[2017-06-13] MEDS ORDERED: Metolazone 5 MG TAB PO SCH (08:30)
--- NOTE | 2017-06-13 08:34 | DIS ---
This is a 57-year-old gentleman who underwent cardiac catheterization at [facility] about 1 year a go and coronary artery bypass grafting was recommended. The patient was lost to follow up and went t o [place] for chelation therapy and then stopped all of his medications except gabapentin. He presen todd to this hospital with a non-STEMI and underwent urgent cardiac catheterization demonstrating donnie nary artery disease, it was similar to the same as one year ago with a chronically occluded LAD that did not visualized and severe stenosis in all of his other diffusely diseased vessels. He was taken to the operating room on 06/08/2017 where he underwent 4-vessel bypass grafting with PIERCE to diseased diagonal, saphenous vein graft to an obtuse marginal, diseased PDA and a radial to a small ramus. H is postoperative course was significant for no arrhythmias. His blood sugars were mildly elevated in the 130-150 range. His discharge weight was 232 pounds. He has chronic edema of his lower extremit ies with an ejection fraction of about 25% and for this reason, a LifeVest was ordered. He will be d ischarged home on losartan 50 mg a day, Coreg 3.125 a day, Lasix 40 a day, potassium 10 mEq a day, at orvastatin 20 mg a day and Tylenol #3 for pain as well as aspirin 81 a day. Discharge and follow up instructions have been given.
[2017-06-13] MEDS ORDERED: Losartan 25 MG TAB PO SCH (09:00)
--- NOTE | 2017-06-13 09:20 | EKG ---
Test Reason : Blood Pressure : / mmHG Vent. Rate : 077 BPM Atrial Rate : 077 BPM P-R Int : 144 ms QRS Dur : 122 ms QT Int : 434 ms P-R-T Axes : 063 075 045 degrees QTc Int : 491 ms Normal sinus rhythm Non-specific intra-ventricular conduction delay Borderline ECG Confirmed by ALYSSIA BRYANT ([id number]) on 06/13/2017 9:20:26 AM Referred By: Confirmed By:ALYSSIA BRYANT
[2017-06-13] MEDS: Polyethylene Glycol 3350 17 GM Packet PO SCH (09:33)
[2017-06-13] MEDS: Aspirin 325 mg Enteric Coated Tablet PO SCH (09:34)
[2017-06-13] MEDS: Carvedilol 3.125 MG TAB PO SCH (09:36)
[2017-06-13] MEDS: Potassium Chloride 20 MEQ TAB PO SCH (09:36)
[2017-06-13] MEDS: Famotidine 20 MG TAB PO SCH (09:36)
[2017-06-13] MEDS: Enoxaparin Sodium 40 MG/0.4 ML SYRINGE SC SCH (09:37)
[2017-06-13] MEDS: Furosemide 40 MG TAB PO SCH (10:09)
--- NOTE | 2017-06-13 12:25 | PDOC.PN ---
- Subjective Encounter Start Date: 06/13/17 Encounter Start Time: 12:00 Patient is seen today, alert and oriented. He is seen by Dr. Cross today and he did discharge of the pairent and Explained all the precautions he need to take. No question from patient,. - Objective Resuscitation Status: Resuscitation Status FULL:Full Resuscitation MAR Reviewed: Yes Vital Signs & Weight: Vital Signs (12 hours) Temp Pulse Resp BP BP Pulse Ox 06/13/17 08:00 98.1 F 66 18 131/63 89 L 06/13/17 04:00 97.9 F 69 18 130/71 92 L Weight Admit Weight 242 lb 8.136 oz Weight 234 lb 3.2 oz Most Recent Monitor Data Heart Rate from ECG 72 NIBP 98/54 NIBP BP-Mean 74 Respiration from ECG 16 SpO2 97 I&O: 06/12/17 06/13/17 06/14/17 06:59 06:59 06:59 Intake Total 730 1000 Output Total 300 Balance 430 1000 Result Diagrams: 06/10/17 04:10 06/13/17 04:55 Additional Labs: Accuchecks 06/13/17 06/13/17 06/12/17 10:57 05:38 20:53 POC Glucose 140 H 133 H 130 H 06/12/17 17:06 POC Glucose 114 H Phys Exam - Physical Examination Neck: no nodes, no JVD Respiratory: no wheezing, no rales Cardiovascular: RRR, no significant murmur Musculoskeletal: edema present Neurological: non-focal, normal sensation Dx/Plan (1) Bronchitis Code(s): J40 - BRONCHITIS, NOT SPECIFIED ACUTE OR CHRONIC Status: Acute Comment: COntinue with prn NEbs. (2) CAD (coronary artery disease), cheesh-na coronary artery Code(s): I25.10 - ATHSCL HEART DISEASE OF [place] CORONARY ARTERY W/O ANG PCTRS Status: Acute Comment: Severe multivessel disease s/p CABG x4 on 06/09/2017, on life vest. (3) NSTEMI (non-ST elevated myocardial infarction) Code(s): I21.4 - NON-ST ELEVATION (NSTEMI) MYOCARDIAL INFARCTION Status: Acute Comment: Continue wih BB, Guy, Aspirin (4) Diabetes Code(s): E11.9 - TYPE 2 DIABETES MELLITUS WITHOUT COMPLICATIONS Status: Chronic Qualifiers: Diabetes mellitus type: type 2 Comment: Well controlled, Continue w SSI. (5) HTN (hypertension) Code(s): I10 - ESSENTIAL (PRIMARY) HYPERTENSION Status: Chronic Comment: Well controlled at Goal, folow cardiology recommedations. (6) Obesity Code(s): E66.9 - OBESITY, UNSPECIFIED Status: Chronic Qualifiers: Body mass index: BMI 40.0-44.9 - Plan plan discussed w/ family, respiratory therapy, incentive spirometry * . - Discharge Day Encounter end time: 12:25 Review of Systems - Review of Systems Eyes: negative: Pain, Vision Change, Conjunctivae Inflammation, Eyelid Inflammation, Redness, Other ENT: negative: Ear Pain, Ear Discharge, Nose Pain, Nose Discharge, Nose Congestion, Mouth Pain, Mouth Swelling, Throat Pain, Throat Swelling, Other Respiratory: Cough, Dry. negative: Shortness of Breath, Hemoptysis, SOB with Excertion, Pleuritic Pain, Sputum, Wheezing Cardiovascular: negative: chest pain, palpitations, orthopnea, paroxysmal nocturnal dyspnea, edema, light headedness, other Gastrointestinal: negative: Nausea, Vomiting, Abdominal Pain, Diarrhea, Constipation, Melena, Hematochezia, Other Musculoskeletal: negative: Neck Pain, Shoulder Pain, Arm Pain, Back Pain, Hand Pain, Leg Pain, Foot Pain, Other Skin: negative: Rash, Lesions, Manfred, Bruising, Other - Medications/Allergies Allergies/Adverse Reactions: Allergies Allergy/AdvReac Type Severity Reaction Status Date / Time No Known Allergies Allergy Unverified 06/05/17 06:45 Medications: Current Medications Acetaminophen (Tylenol) 650 mg PO Q6H PRN PRN Reason: Headache/Fever or Pain Last Admin: 06/12/17 02:04 Dose: 650 mg Hydrocodone Bitart/Acetaminophen ([place] 5/325) 1 tab PO Q4H PRN PRN Reason: Moderate Pain (4-6) Last Admin: 06/10/17 20:14 Dose: 1 tab Hydrocodone Bitart/Acetaminophen ([place] 5/325) 2 tab PO Q4H PRN PRN Reason: Severe Pain (7-10) Last Admin: 06/13/17 04:46 Dose: 2 tab Al Hydroxide/Mg Hydroxide (Maalox) 30 ml PO Q4H PRN PRN Reason: Indigestion Last Admin: 06/10/17 08:52 Dose: 30 ml Albuterol/Ipratropium (Duoneb) 3 ml NEB [id number] PRN PRN Reason: Respiratory Distress Aspirin (Ecotrin) 325 mg PO DAILY [facility] Last Admin: 06/13/17 09:34 Dose: 325 mg Atorvastatin Calcium (Lipitor) 20 mg PO HS [facility] Bisacodyl (Dulcolax) 10 mg PO Q12H PRN PRN Reason: Constipation Last Admin: 06/10/17 20:10 Dose: 10 mg Bisacodyl (Dulcolax) 10 mg IN Q12H PRN PRN Reason: Constipation Carvedilol (Coreg) 3.125 mg PO BID [facility] Last Admin: 06/13/17 09:36 Dose: 3.125 mg Dextrose/Water (Dextrose 50%) 25 gm SLOW IVP PRN PRN PRN Reason: PER HYPOGLYCEMIC PROTOCOL Enoxaparin Sodium (Lovenox) 40 mg SC 0900 [facility] Last Admin: 06/13/17 09:37 Dose: 40 mg Famotidine (Pepcid) 20 mg PO BID [facility] Last Admin: 06/13/17 09:36 Dose: 20 mg Fentanyl (Sublimaze) 25 mcg SLOW IVP Q2H PRN PRN Reason: Moderate breakthrough pain Furosemide (Lasix) 40 mg PO BID [facility] Last Admin: 06/13/17 10:09 Dose: 40 mg Glucagon (Glucagon) 1 mg SC PRN PRN PRN Reason: PER HYPOGLYCEMIC PROTOCOL Guaifenesin/Dextromethorphan (Robitussin Dm) 15 ml PO Q4H PRN PRN Reason: Cough Dextrose/Water (D5w) 1,000 mls @ 0 mls/hr IV INF PRN; As Directed PRN Reason: PRN HYPOGLYCEMIC PROTOCOL Insulin Human Regular (Humulin R) 0 units SC Q4H PRN; Protocol PRN Reason: POST OP SLIDING SCALE Last Admin: 06/12/17 11:52 Dose: 3 unit Losartan Potassium (Cozaar) 50 mg PO DAILY [facility] Last Admin: 06/13/17 09:33 Dose: 50 mg Metolazone (Zaroxolyn) 5 mg PO 0830 [facility] Last Admin: 06/13/17 09:34 Dose: 5 mg Mineral Oil (Fleet Mineral Oil) 133 ml IN DAILYPRN PRN PRN Reason: Constipation Nitroglycerin (Nitrostat) 0.4 mg SL Q5MIN PRN PRN Reason: Chest Pain Ondansetron HCl (Zofran) 4 mg IVP Q6H PRN PRN Reason: Nausea/Vomiting Polyethylene Glycol (Miralax) 17 gm PO DAILY [facility] Last Admin: 06/13/17 09:33 Dose: 17 gm Potassium Chloride (K-Dur) 20 meq PO QAM-WM [facility] Last Admin: 06/13/17 09:36 Dose: 20 meq Sodium Chloride (Flush - Normal Saline) 10 ml IVF Q12HR [facility] Last Admin: 06/13/17 10:10 Dose: 10 ml Sodium Chloride (Flush - Normal Saline) 10 ml IVF PRN PRN PRN Reason: Saline Flush
[2017-06-13 12:54] VITALS: BP 124/65; TEMP 97.6
--- NOTE | 2017-06-13 15:12 | PRG ---
DATE OF SERVICE: 06/13/2017 SUBJECTIVE: This morning, he is less short of breath. No pain. OBJECTIVE: VITAL SIGNS: Sats are low 89 on room air, respiratory rate 18, temperature 98, blood pressure 130/60 . CHEST: Bilateral rhonchi. CARDIAC: Normal S1, S2. ABDOMEN: Soft, no masses. Electrolytes are normal. IMPRESSION: Congestive heart failure, probably sleep apnea, chronic obstructive pulmonary disease, m yocardial infarction. Cardiac disease. DISPOSITION: As per Cardiology. Continue neb treatment. Follow up with Pulmonary as an outpatient basis.
[2017-06-13] MEDS ORDERED: Atorvastatin Calcium 20 MG TAB PO SCH (21:00)
[2017-06-15 13:54] LABS: Actual Bicarbonate (HCO3a) 26.7 mEq/L (22-26); Base Excess (BEa) 2.5 mEq/L (0 (+/-) 2.5); CO2 Tension 39.9 mmHg (35.0-45.0); O2 Tension (PaO2) 314.2 mmHg (80.0-100.0); pH, Arterial 7.44 (7.35-7.45)
[2017-06-15 13:55] LABS: Analyzer IN Cardio OR; Hematocrit-ABG 34.9 % (42.0-52.0); Puncture Site ALINE
[2017-06-15 13:56] LABS: Actual Bicarbonate (HCO3a) 24.5 mEq/L (22-26); Base Excess (BEa) 1.7 mEq/L (0 (+/-) 2.5); CO2 Tension 32.1 mmHg (35.0-45.0); Hemoglobin (Hb) 10.9 g/dL (14.0-18.0)
[2017-06-15 13:57] LABS: Analyzer IN Cardio OR; pH (venous) 7.44 (7.35-7.45)
[2017-06-15 13:57] LABS: Analyzer IN Cardio OR; Puncture Site ALINE
[2017-06-15 13:58] LABS: Actual Bicarbonate (HCO3v) 28 mEq/L (22-26); Base Excess 3.4 mEq/L (0 (+/- 2.5)); Calcium, Ionized 0.94 mmol/L (1.16-1.32); Chloride (ABG LAB) 98 mmol/L (98-106); Hematocrit-VBG 25.2 % (39-50); Hemoglobin (Hb) 8.5 g/dL (13.1-17.2); Potassium - ABG Lab 3.4 mmol/L (3.70-5.30); Sodium 135.5 mmol/L (133-146)
[2017-06-15 13:59] LABS: CO2 Tension 35.8 mmHg (35.0-45.0); pH, Arterial 7.48 (7.35-7.45)
[2017-06-15 14:01] LABS: Actual Bicarbonate (HCO3a) 27.1 mEq/L (22-26); Base Excess (BEa) 2.6 mEq/L (0 (+/-) 2.5); O2 Tension (PaO2) 513.4 mmHg (80.0-100.0)
[2017-06-15 14:02] LABS: Analyzer IN Cardio OR; Hematocrit-ABG 26.7 % (42.0-52.0); Hemoglobin (Hb) 8.7 g/dL (14.0-18.0); Puncture Site ALINE
[2017-06-15 14:03] LABS: Actual Bicarbonate (HCO3a) 24.7 mEq/L (22-26); Base Excess (BEa) 1.5 mEq/L (0 (+/-) 2.5); CO2 Tension 32.8 mmHg (35.0-45.0); Hematocrit-ABG 21.3 % (42.0-52.0); Hemoglobin (Hb) 7.6 g/dL (14.0-18.0); O2 Tension (PaO2) 233.2 mmHg (80.0-100.0)
[2017-06-15 14:04] LABS: Analyzer IN Cardio OR; Calcium, Ionized 1.2 mmol/L (1.12-1.30); Puncture Site ALINE
== END 2017-06-13 13:33 | disposition home or self-care (01) | DRG 234 ==
LOC: ERS 03:15 → EEVIPCON 05:25 → ERHOLD 05:25 → CCU 16:03 → 2NO 06-10 22:08
PROVIDERS: ADMIT Hospitalist; ATTEND Hospitalist
PROC: 4A023N7 Measurement of Cardiac Sampling and Pressure, Left Heart, Percutaneous Approach (ICD-10-PCS; 2017-06-05)
PROC: B2111ZZ Fluoroscopy of Multiple Coronary Arteries using Low Osmolar Contrast (ICD-10-PCS; 2017-06-05)
PROC: B2151ZZ Fluoroscopy of Left Heart using Low Osmolar Contrast (ICD-10-PCS; 2017-06-05)
PROC: 02100Z9 Bypass Coronary Artery, One Artery from Left Internal Mammary, Open Approach (ICD-10-PCS; principal; 2017-06-08)
PROC: 021209W Bypass Coronary Artery, Three Arteries from Aorta with Autologous Venous Tissue, Open Approach (ICD-10-PCS; 2017-06-08)
PROC: 06BQ4ZZ Excision of Left Saphenous Vein, Percutaneous Endoscopic Approach (ICD-10-PCS; 2017-06-08)
PROC: 5A1221Z Performance of Cardiac Output, Continuous (ICD-10-PCS; 2017-06-08)
DX: I21.4 Non-ST elevation (NSTEMI) myocardial infarction (principal); E11.51 Type 2 diabetes mellitus with diabetic peripheral angiopathy without gangrene; Z68.41 Body mass index [BMI] 40.0-44.9, adult; I50.9 Heart failure, unspecified; I11.0 Hypertensive heart disease with heart failure; J44.9 Chronic obstructive pulmonary disease, unspecified; E11.9 Type 2 diabetes mellitus without complications; Z87.891 Personal history of nicotine dependence; I25.10 Atherosclerotic heart disease of native coronary artery without angina pectoris; G47.30 Sleep apnea, unspecified; I25.5 Ischemic cardiomyopathy; Z91.19 Patient's noncompliance with other medical treatment and regimen; E66.9 Obesity, unspecified; J40 Bronchitis, not specified as acute or chronic
CPT/HCPCS: 36415; 36416; 71045; 71275; 80048; 80053; 80061; 82550; 82553; 82805; 83036; 83690; 83880; 84484; 85025; 85610; 85730; 86850; 86900; 86901; 93005; 93010; 93306; 93458; 93798; 94002; 94150; 94640; 96361; 96365; 96372; 96375; 96376; 99152; A4216; C1769; J0360; J1642; J1644; J1650; J1815; J1940; J2001; J2250; J2260; J2270; J2405; J2440; J2704; J2720; J3010; J3370; J3475; J3480; J7050; J7620; P9045; S0017; S0028

== ENCOUNTER 2017-06-13 20:55 | Emergency (ER) | payer OTHER, SELFPAY ==
[2017-06-13 22:03] LABS: #Basophils 0.1 thou/uL (0.0-0.2); #Eosinphils 0.3 thou/uL (0.0-0.7); #Lymphocytes 2.3 thou/uL (1.20-3.40); #Monocytes 0.7 thou/uL (0.11-0.59); #Neutrophils 5.4 thou/uL (1.40-6.50); %Basophils 0.8 % (0.0-1.0); %Eosinophils 3.7 % (0.0-10.0); %Lymphocytes 26.4 % (21.0-51.0); %Monocytes 7.8 % (0.0-10.0); %Neutrophils 61.4 % (42.0-75.0); Hemoglobin 10.7 g/dL (14.0-18.0); Mean Corpuscular HGB CONC 33.4 g/dL (32.0-36.0); Mean Corpuscular Hemoglobin 30.7 pg (27.0-31.0); Mean Platelet Volume 7.1 fL (7.4-10.4); Platelet Count 272 thou/uL (130-400); RBC Distribution Width 12.9 % (11.5-14.5); Red Blood Cell (RBC) Count 3.47 mill/uL (4.70-6.10); White Blood Cell (WBC) Count 8.7 thou/uL (4.8-10.8)
[2017-06-13 22:09] LABS: INR-International Normal Ratio 1.4; Prothrombin Time 17.5 SEC (12.0-14.7)
[2017-06-13 22:10] LABS: PTT 66.5 SEC (22.9-36.1)
[2017-06-13 22:16] LABS: ALT (SGPT) 16 U/L (8-55); AST (SGOT) 37 U/L (5-34); Albumin 2.9 g/dL (3.5-5.0); Alkaline Phosphatase 198 U/L (40-150); Anion Gap 14 mmol/L (10-20); BUN (Urea Nitrogen) 14 mg/dL (8.4-25.7); Bilirubin, Total 1.2 mg/dL (0.2-1.2); CK (CPK) 202 U/L (30-200); Calc. Creatinine Clearance 0 mL/min (70-130); Calcium 8.6 mg/dL (7.8-10.44); Carbon Dioxide 31 mmol/L (22-29); Chloride 98 mmol/L (98-107); Estimated GFR-MDRD Greater than 90; Globulin 3.9 g/dL (2.4-3.5); Glucose 112 mg/dL (70-105); Potassium 3.7 mmol/L (3.5-5.1); Protein, Total 6.8 g/dL (6.0-8.3); Sodium 139 mmol/L (136-145)
[2017-06-13 22:18] LABS: CKMB 5.4 ng/mL (0-6.6)
--- NOTE | 2017-06-13 22:23 | RAD ---
PORTABLE CHEST: Comparison: 06-10-17 History: Chest pain. Recent CABG. FINDINGS: Heart size is enlarged. There are post op sternotomy change. Bibasilar atelectatic lung changes are s lightly improved as compared to the prior exam. IMPRESSION: Cardiomegaly with some slight improvement to the bibasilar atelectasis. Possible small effusions with minimal blunting to both costophrenic angles. POS: [facility]
[2017-06-13 22:27] LABS: Critical Call Chem Troponin I RESULT DECREASING; Troponin I 0.725 ng/mL (< 0.028)
== END 2017-06-13 22:53 | disposition home or self-care (01) ==
LOC: ERS 20:55
DX: R07.9 Chest pain, unspecified (principal); E11.40 Type 2 diabetes mellitus with diabetic neuropathy, unspecified; I25.2 Old myocardial infarction; Z87.891 Personal history of nicotine dependence; Z79.82 Long term (current) use of aspirin; Z79.899 Other long term (current) drug therapy; Z79.891 Long term (current) use of opiate analgesic
CPT/HCPCS: 71045; 82553; 84484; 85025; 85610; 85730; 96374; J2270

== ENCOUNTER 2017-06-18 10:58 | Inpatient (IN) | payer OTHER, SELFPAY ==
[2017-06-18 12:38] LABS: #Eosinphils 0.4 thou/uL (0.0-0.7); #Lymphocytes 2.3 thou/uL (1.20-3.40); #Monocytes 0.7 thou/uL (0.11-0.59); %Basophils 0.4 % (0.0-1.0); %Eosinophils 3.2 % (0.0-10.0); %Lymphocytes 19.9 % (21.0-51.0); %Monocytes 6.3 % (0.0-10.0); %Neutrophils 70.2 % (42.0-75.0); Hemoglobin 10.6 g/dL (14.0-18.0); Mean Corpuscular HGB CONC 32.6 g/dL (32.0-36.0); Mean Corpuscular Hemoglobin 30.5 pg (27.0-31.0); Mean Corpuscular Volume 93.6 fl (80.0-94.0); Mean Platelet Volume 6.8 fL (7.4-10.4); Platelet Count 349 thou/uL (130-400); RBC Distribution Width 13.6 % (11.5-14.5); Red Blood Cell (RBC) Count 3.49 mill/uL (4.70-6.10); White Blood Cell (WBC) Count 11.5 thou/uL (4.8-10.8)
[2017-06-18 12:53] LABS: ALT (SGPT) 18 U/L (8-55); AST (SGOT) 34 U/L (5-34); Alkaline Phosphatase 224 U/L (40-150); Anion Gap 11 mmol/L (10-20); BUN (Urea Nitrogen) 18 mg/dL (8.4-25.7); Bilirubin, Total 0.9 mg/dL (0.2-1.2); Calc. Creatinine Clearance 0 mL/min (70-130); Calcium 8.7 mg/dL (7.8-10.44); Carbon Dioxide 31 mmol/L (22-29); Chloride 100 mmol/L (98-107); Estimated GFR-MDRD Greater than 90; Globulin 4.2 g/dL (2.4-3.5); Glucose 218 mg/dL (70-105); Potassium 4.9 mmol/L (3.5-5.1); Protein, Total 7.2 g/dL (6.0-8.3); Sodium 137 mmol/L (136-145)
--- NOTE | 2017-06-18 13:10 | RAD ---
PORTABLE AP CHEST XRAY: DATE 06/18/17. HISTORY: Cough. COMPARISON: 06/13/17. FINDINGS: Postsurgical changes related to CABG are again noted. The cardiac silhouette remains enlarged. The subsegmental atelectasis present in the region of the lingula and the right lung base have resolved. The lungs appear clear on today's exam. Pulmonary vasculature is within normal limits. No other in terval change. IMPRESSION: 1. Cardiomegaly without overt congestive heart failure. 2. No acute cardiopulmonary process. POS: [facility]
[2017-06-18] MEDS ORDERED: Fentanyl 100 MCG/2 ML VIAL ONE (13:11)
[2017-06-18] MEDS ORDERED: Furosemide 20 MG/2 ML VIAL SLOW IVP SCH (14:15)
[2017-06-18] MEDS ORDERED: Loperamide HCl 2 MG CAP PO PRN (14:28)
[2017-06-18] MEDS ORDERED: Zolpidem Tartrate 5 MG TAB PO PRN (14:28)
[2017-06-18] MEDS ORDERED: Mag-Al 1200 mg/1200 mg/30 ML UDCUP PO PRN (14:28)
[2017-06-18] MEDS ORDERED: Acetaminophen 325 MG TAB PO PRN (14:28)
[2017-06-18] MEDS ORDERED: Ondansetron HCl/PF 4 MG/2 ML Vial IVP PRN (14:28)
[2017-06-18] MEDS ORDERED: Senokot 8.6 MG TAB PO PRN (14:28)
[2017-06-18] MEDS ORDERED: Diabetic Tussin 200 MG/10 ML UDCUP PO PRN (14:28)
[2017-06-18] MEDS ORDERED: Sodium Chloride 0.65% Nasal 44 ML BOT EA NARE PRN (14:28)
[2017-06-18] MEDS ORDERED: hydrALAZINE 20 MG/ML VIAL SLOW IVP PRN (14:28)
[2017-06-18] MEDS ORDERED: Artificial Tear Sol 15 ML BOT EA EYE PRN (14:28)
[2017-06-18] MEDS ORDERED: Nitroglycerin 0.4 MG TAB (25 Tab Bottle) SL PRN (14:28)
[2017-06-18] MEDS ORDERED: Eucerin (Mineral Oil/Petrolatum,White) 30 gm Jar TOP PRN (14:28)
[2017-06-18] MEDS ORDERED: Dextrose 50% Abboject 50 ML SYRINGE SLOW IVP PRN (14:28)
[2017-06-18] MEDS ORDERED: Ondansetron ODT 4 MG TAB PO PRN (14:28)
[2017-06-18] MEDS ORDERED: Morphine 4 MG/ML Carpuject SLOW IVP PRN (14:28)
[2017-06-18] MEDS ORDERED: Dextrose 5% in Water 1,000 ML IV PRN (14:28)
[2017-06-18] MEDS ORDERED: Milk Of Magnesia 30 ML UDCUP PO PRN (14:28)
[2017-06-18] MEDS ORDERED: Loratadine 10 MG TAB PO PRN (14:28)
[2017-06-18] MEDS ORDERED: Chloraseptic Spray 180 ml Bottle PO PRN (14:28)
[2017-06-18 14:31] LABS: Bilirubin Negative (Negative); Blood, Urine Negative (Negative); Clarity CLEAR (Clear); Glucose, Urine (Dipstick) Negative (Negative); Leukocyte Trace (Negative); Nitrite Negative (Negative); Protein, Urine (Dipstick) Negative (Neg-Trace); Specific Gravity, Urine 1.011 (1.002-1.036); pH, Urine 7.5 (5.0-9.0)
[2017-06-18 14:33] LABS: Bacteria/HPF None Seen HPF (None Seen); Hyaline Casts/LPF 0-3 HYALINE CAST LPF (0-3 Hyaline); Pathc Cast-AUWi Flag 0.13 (0-2.49); RBC/HPF 0-3 HPF (0-3); Squamous Epithelial 0-3 HPF (0-3)
--- NOTE | 2017-06-18 14:40 | HP ---
PRIMARY CARE PHYSICIAN: Jagdeep Oliveira M.D. REASON FOR ADMISSION: Infection over previous surgical site. HISTORY OF PRESENT ILLNESS: A 57-year-old male who has underlying history of coronary artery disease , obesity, hypertension, and dyslipidemia, who was most recently admitted in our hospital on 06/05/19 18. At that time, the patient presented with increasing shortness of breath and lower extremity joey a and he was diagnosed with systolic heart failure. Cardiology was consulted and they did cardiac ca theterization, and he was found with severe multivessel coronary artery disease. Subsequently, cardi ovascular surgeon was involved in his care and on 06/08/2017, the patient underwent CABG x4. Postope ratively, the patient stayed in hospital up until 06/13/2017, when he was discharged home. The patie nt's family member reports that he was having cough since that admission and he does not have any manuela nge in his cough and he does have lower extremity edema since then that also has not improved signifi cantly, even though he was taking Lasix on a daily basis. The patient reports that he was discharged on last Wednesday, about 5 days ago. He was doing well at at time. On Wednesday, when he started walking, he was feeling pain in his left groin. On Wednesday, he noticed some discharge and foul-smelling pus predominantly in his left groin wound and he also notice d some redness and swelling and tenderness nearby incision site around calf. He was not feeling good . He was having subjective feverish. On Wednesday and , condition gotten worse and this mor juan there was lot of pus draining from the surgical site and that is why he was concerned about it a nd decided to come to the emergency room for evaluation. The patient still has bilateral lower extremity edema and he still has cough, but he denies any UTI s ymptoms. He denies any nausea, vomiting, diarrhea, or UTI symptoms. In the emergency room today, he had routine blood test done which showed leukocytosis with left shift and in the emergency room physician did local wound culture and the patient was given vancomycin and subsequently, we decided to keep this patient in the hospital for IV antibiotic therapy for wound ca re as well as wound infection. ALLERGIES: No known drug allergy. CURRENT HOME MEDICATIONS: Aspirin 81 mg p.o. daily, gabapentin 900 mg p.o. 3 times daily, potassium chloride 10 mEq p.o. daily, losartan 50 mg p.o. daily, Lasix 40 mg p.o. daily, Coreg 3.125 mg p.o. b. i.d., Tylenol #3 one tablet q.6 hourly p.r.n., Lipitor 20 mg p.o. at bedtime. REVIEW OF SYSTEMS: Please see my HPI for pertinent positives and negatives. All other review of sys tems reviewed and negative except as mentioned in the HPI. Constitutional: Weight loss or gain, ability to conduct usual activities. Skin: Rash, itching. Eyes: Double vision, pain. ENT/Mouth: Nose bleeding, neck stiffness, pain, tenderness. Cardiovascular: Palpitations, dyspnea on exertion, orthopnea. Respiratory: Shortness of breath, wheezing, cough, hemoptysis, fever or night sweats. Gastrointestinal: Poor appetite, abdominal pain, heartburn, nausea, vomiting, constipation, or diarrhea. Genitourinary: Urgency, frequency, dysuria, nocturia. Musculoskeletal: Pain, swelling. Neurologic/Psychiatric: Anxiety, depression. Allergy/Immunologic: Skin rash, bleeding tendency. PAST MEDICAL HISTORY: Morbid obesity, diabetes type 2, diabetic neuropathy, history of [place] and recent diagnosis of multivessel coronary artery disease required CABG, dyslipidemia, chronic systolic heart failure which was diagnosed recently. PAST SURGICAL HISTORY: CABG x4 on 06/08/2017. Cardiac catheterization by Dr. Montenegro showed multi vessel CAD, left shoulder surgery, toe removal from the left foot. PAST PSYCHIATRIC HISTORY: Reviewed and negative. SOCIAL HISTORY: The patient is . His is present at bedside in the emergency room. No h istory of illicit drug abuse, but he is a former smoker. He quit smoking more than 10 years ago. He drinks alcohol socially about twice a month. FAMILY HISTORY: Diabetes, hypertension, heart disease runs among several family members. EMERGENCY ROOM COURSE: The patient has received vancomycin 1 g, fentanyl 100 mcg, and IV fluid 1 lit er. PHYSICAL EXAMINATION: VITAL SIGNS: Currently, blood pressure on arrival 99/47, pulse 68, respiratory rate 18, temperature 97.9, saturation 89% on room air, weight 106.1 kilograms. GENERAL: The patient is currently alert, awake, no obvious acute distress. HEAD: Normocephalic, atraumatic. EYES: Pupils round, reactive to light. Extraocular muscles intact. ENT: Oropharynx within normal limits. Moist mucous membranes. No oral lesions. No pharyngeal eryt jimena, no exudate. NECK: Supple, no JVD, no thyromegaly, no carotid bruit, no jugular venous distention. LUNGS: Coarse breath sounds noted basally especially on the right side. No wheeze, no rhonchi. No accessory muscles of respiration use. CARDIOVASCULAR: S1, S2 appears regular, no murmur, no gallop, no rub. CHEST WALL: Surgical site is clean and healthy without any induration or discharge. ABDOMEN: Obesity present. Bowel sounds present. Nontender, nondistended. No organomegaly. No mas s. No suprapubic tenderness. No peritoneal sign. No guarding. No rigidity. No rebound. No supra pubic tenderness. BACK: Unremarkable, no CVA tenderness. EXTREMITIES: Upper extremity: Passive movements of all joints are normal. Lower extremity: Bilate ral +3 pitting edema noted up to thigh level. Left groin wound is open with a draining foul-smelling pus as well as surgical site around calf, is also erythematous and tender. Good distal pulsation. NEUROLOGIC: The patient is alert, oriented x3. Grossly nonfocal examination. The patient is moving all four limbs, plantar bilateral flexor. PSYCHIATRIC: Normal affect. SKIN: No skin rash other than this surgical wound infection. SIGNIFICANT LABORATORY DATA: EKG showing left atrial enlargement, nonspecific ST-T changes. Chest x -ray showing cardiomegaly with improvement in pulmonary vascular congestion compared with previous x- rays. CBC: WBC 11.5, hemoglobin 10.6, platelets 349. BMP shows sodium 137, potassium 4.9, chloride 100, carbon dioxide 31, anion gap 11, BUN 18, creatinine 0.84, glucose 218, calcium 8.7, lactic acid 1.9. LFT: AST 34, ALT 18, alkaline phosphatase 224, albumin 3.0. ASSESSMENT AND PLAN: 1. Surgical site infection on left lower extremity, predominantly over left groin wound as well as a round left calf where he also has surrounding cellulitis. This patient will require Wound Care Team to see. We will notify Dr. Cross to come and look at. Most likely, this is a Staph infection given his diabetes history. We will treat with vancomycin. We will also treat initially with Zosyn to cov er anaerobes, but based on culture result, we will decide to discontinue Zosyn later on. We will con trol his pain during hospital with fentanyl or morphine p.r.n. basis. We will follow up on culture r esult and based on culture result, we will decide oral antibiotic therapy upon discharge. 2. Bilateral lower extremity pitting edema. This patient has underlying history of chronic systolic and diastolic heart failure. He has hypoalbuminemia probably from diabetic nephropathy. At this po int, he will need diuretic therapy though his blood pressure is low, but he is asymptomatic. We will continue with IV Lasix while in hospital. Meanwhile, we will hold on losartan and Coreg therapy if blood pressure remains low, but will try to make him more diuresis during this admission. 3. Coronary artery disease with multi-vessel coronary artery disease, status post recent coronary ar manju bypass graft x4. Dr. Cross will be notified and will continue aspirin 325 mg p.o. daily, Lipito r 20 mg p.o. at bedtime. If blood pressure allows, we will continue Coreg 3.125 mg twice daily, but we will hold on losartan therapy for now, which can be restarted later on. 4. Morbid obesity. Dietary education given, weight loss education given. 5. Diabetes type 2. We will continue insulin as per sliding scale per protocol. We will check hemo globin A1c, diabetic diet will be given. 6. Hypoalbuminemia. I will check random protein creatinine ratio to rule out nephrotic syndrome. 7. Anemia, normocytic, normochromic. We will continue the ferrous sulfate 325 mg p.o. daily while i n hospital. 8. Diabetic neuropathy. Continue home dose of gabapentin 900 mg t.i.d. 9. Dyslipidemia. Continue Lipitor 20 mg p.o. at bedtime. 10. Hypertension, but currently low blood pressure and that is why we will hold Coreg and losartan t herapy for now. 11. Deep venous thrombosis prophylaxis. Lovenox 40 mg subcu daily. 12. Gastrointestinal prophylaxis, Pepcid 20 mg p.o. b.i.d. 13. Code status: The patient is FULL CODE. The patient's is surrogate decision maker. Disposition plan based on clinical course. We are expecting patient's stay in the hospital more than 2 midnights. Plan of care discussed with the patient and family member at bedside in the emergency room.
[2017-06-18] MEDS ORDERED: Vancomycin HCl 1 GM in Premix Bag 1 BAG IVPB SCH (15:00)
[2017-06-18 15:52] VITALS: BMI 38.9
[2017-06-18] MEDS: Gabapentin 300 MG CAP PO SCH ×2 (17:02→19:55)
[2017-06-18] MEDS: Piperacillin/Tazobactam 3.375 GM in Sodium Chloride 0.9% 100 ML IVPB SCH ×2 (17:02→19:54)
[2017-06-18] MEDS: Carvedilol 3.125 MG TAB PO SCH (17:03)
[2017-06-18] MEDS: HYDROcodone/Acetaminophen 5/325 mg Tablet PO PRN ×2 (17:14→21:33)
[2017-06-18 17:54] LABS: Bilirubin Negative (Negative); Blood, Urine Negative (Negative); Clarity CLEAR (Clear); Glucose, Urine (Dipstick) Negative (Negative); Leukocyte Negative (Negative); Nitrite Negative (Negative); Protein, Urine (Dipstick) Negative (Neg-Trace); Specific Gravity, Urine 1.007 (1.002-1.036); pH, Urine 7.5 (5.0-9.0)
[2017-06-18 17:56] LABS: Bacteria/HPF None Seen HPF (None Seen); Hyaline Casts/LPF 0-3 HYALINE CAST LPF (0-3 Hyaline); Pathc Cast-AUWi Flag 0.13 (0-2.49); RBC/HPF 0-3 HPF (0-3); Squamous Epithelial None Seen HPF (0-3); WBC/HPF 0-3 HPF (0-3)
[2017-06-18 18:13] LABS: Creatinine, Urine 27.38 mg/dL (63-166); Protein, Urine Random Quant Less than 10 mg/dL
[2017-06-18] MEDS: Vancomycin HCl 1.5 GM in Sodium Chloride 0.9% 250 ML 300 ML IVPB SCH (19:55)
[2017-06-18] MEDS: Famotidine 20 MG TAB PO SCH (19:56)
[2017-06-18] MEDS: Atorvastatin Calcium 20 MG TAB PO SCH (19:56)
[2017-06-18] MEDS: Enoxaparin Sodium 40 MG/0.4 ML SYRINGE SC SCH (19:57)
[2017-06-19] MEDS: Piperacillin/Tazobactam 3.375 GM in Sodium Chloride 0.9% 100 ML IVPB SCH ×4 (05:00→21:40)
[2017-06-19] MEDS: Furosemide 40 MG/4 ML VIAL SLOW IVP SCH ×2 (05:01→14:46)
[2017-06-19] MEDS: HYDROcodone/Acetaminophen 5/325 mg Tablet PO PRN ×4 (05:06→20:15)
[2017-06-19 05:47] LABS: #Basophils 0.2 thou/uL (0.0-0.2); #Eosinphils 0.4 thou/uL (0.0-0.7); #Lymphocytes 2.1 thou/uL (1.20-3.40); %Basophils 1.8 % (0.0-1.0); %Eosinophils 3.7 % (0.0-10.0); %Lymphocytes 19.8 % (21.0-51.0); %Monocytes 9.2 % (0.0-10.0); %Neutrophils 65.6 % (42.0-75.0); Hemoglobin 10.1 g/dL (14.0-18.0); Mean Corpuscular HGB CONC 32.6 g/dL (32.0-36.0); Mean Corpuscular Hemoglobin 30.4 pg (27.0-31.0); Mean Corpuscular Volume 93.2 fl (80.0-94.0); Mean Platelet Volume 6.5 fL (7.4-10.4); Platelet Count 326 thou/uL (130-400); RBC Distribution Width 13.6 % (11.5-14.5); Red Blood Cell (RBC) Count 3.32 mill/uL (4.70-6.10); White Blood Cell (WBC) Count 10.7 thou/uL (4.8-10.8)
[2017-06-19 06:02] LABS: Anion Gap 10 mmol/L (10-20); BUN (Urea Nitrogen) 17 mg/dL (8.4-25.7); Calc. Creatinine Clearance 142 mL/min (70-130); Calcium 8.2 mg/dL (7.8-10.44); Carbon Dioxide 29 mmol/L (22-29); Chloride 102 mmol/L (98-107); Estimated GFR-MDRD Greater than 90; Glucose 179 mg/dL (70-105); Sodium 137 mmol/L (136-145)
[2017-06-19] MEDS: Ferrous Sulfate 325 MG TAB PO SCH (08:19)
[2017-06-19] MEDS: Saccharomyces boulardii 250 MG CAP PO SCH (08:19)
[2017-06-19] MEDS: Famotidine 20 MG TAB PO SCH ×2 (08:20→20:13)
[2017-06-19] MEDS: Gabapentin 300 MG CAP PO SCH ×3 (08:20→20:13)
[2017-06-19] MEDS: Aspirin 325 MG TAB PO SCH (08:20)
[2017-06-19] MEDS: Carvedilol 3.125 MG TAB PO SCH ×2 (08:21→16:37)
[2017-06-19] MEDS ORDERED: FLU VACC QS2017-18 36 mo. & older 0.5 ML SYRINGE IM ONE (09:00)
--- NOTE | 2017-06-19 10:07 | PDOC.PN ---
- Subjective Encounter Start Date: 06/19/17 Encounter Start Time: 07:30 -: old records requested/rev Patient seen and examined. No new complaints. No overnight events did not sleep good last night, edema reducing has pain in left thigh, near surgical site - Objective Resuscitation Status: Resuscitation Status FULL:Full Resuscitation MAR Reviewed: Yes Vital Signs & Weight: Vital Signs (12 hours) Temp Pulse Resp BP BP Pulse Ox 06/19/17 08:00 98.8 F 66 18 108/61 94 L 06/19/17 04:00 98.4 F 70 16 91/42 L 98 06/19/17 00:00 97.9 F 66 16 103/61 91 L Weight Admit Weight 234 lb Weight 234 lb I&O: 06/18/17 06/19/17 06/20/17 06:59 06:59 06:59 Intake Total 1670 Balance 1670 Result Diagrams: 06/19/17 05:22 06/19/17 05:22 Additional Labs: Accuchecks 06/19/17 06/18/17 06/18/17 04:54 20:37 15:42 POC Glucose 206 H 175 H 147 H Phys Exam - Physical Examination Constitutional: NAD HEENT: PERRLA, moist MMs, sclera anicteric Neck: no JVD, supple Respiratory: no wheezing, no rales, no rhonchi Cardiovascular: RRR, no significant murmur, no rub Gastrointestinal: soft, non-tender, no distention, positive bowel sounds Musculoskeletal: pulses present, edema present Neurological: non-focal, normal sensation Lymphatic: no nodes Psychiatric: normal affect, A&O x 3 Skin: no rash, normal turgor Dx/Plan (1) Acute on chronic systolic (congestive) heart failure Code(s): I50.23 - ACUTE ON CHRONIC SYSTOLIC (CONGESTIVE) HEART FAILURE Status : Acute (2) Bilateral lower extremity edema Code(s): R60.0 - LOCALIZED EDEMA Status: Acute Comment: due to 1 (3) H/O four vessel coronary artery bypass graft Code(s): Z95.1 - PRESENCE OF AORTOCORONARY BYPASS GRAFT Status: Acute (4) Wound, surgical, infected Code(s): T81.4XXA - INFECTION FOLLOWING A PROCEDURE, INITIAL ENCOUNTER Status : Acute (5) Anemia, normocytic normochromic Code(s): D64.9 - ANEMIA, UNSPECIFIED Status: Chronic (6) CAD (coronary artery disease) Code(s): I25.10 - ATHSCL HEART DISEASE OF [place] CORONARY ARTERY W/O ANG PCTRS Status: Chronic (7) Chronic low back pain Code(s): M54.5 - LOW BACK PAIN; G89.29 - OTHER CHRONIC PAIN Status: Chronic (8) Diabetic neuropathy Code(s): E11.40 - TYPE 2 DIABETES MELLITUS WITH DIABETIC NEUROPATHY, UNSP Status: Chronic (9) Dyslipidemia Code(s): E78.5 - HYPERLIPIDEMIA, UNSPECIFIED Status: Chronic (10) HTN (hypertension) Code(s): I10 - ESSENTIAL (PRIMARY) HYPERTENSION Status: Chronic Comment: Well controlled at Goal, folow cardiology recommedations. (11) Obesity (BMI 30-39.9) Code(s): E66.9 - OBESITY, UNSPECIFIED Status: Chronic - Plan cont current plan of care, continue antibiotics * continue vancomycin and zosyn * wound grew GNR, follow on culture * continue lasix for edema leg * medication reviewed as below * symptomatic treatment * wound care * continue selected home medication. Review of Systems - Review of Systems Constitutional: negative: fever, chills, sweats, weakness, malaise, other Eyes: negative: Pain, Vision Change, Conjunctivae Inflammation, Eyelid Inflammation, Redness, Other ENT: negative: Ear Pain, Ear Discharge, Nose Pain, Nose Discharge, Nose Congestion, Mouth Pain, Mouth Swelling, Throat Pain, Throat Swelling, Other Respiratory: negative: Cough, Dry, Shortness of Breath, Hemoptysis, SOB with Excertion, Pleuritic Pain, Sputum, Wheezing Cardiovascular: edema. negative: chest pain, palpitations, orthopnea, paroxysmal nocturnal dyspnea, light headedness, other Gastrointestinal: negative: Nausea, Vomiting, Abdominal Pain, Diarrhea, Constipation, Melena, Hematochezia, Other Genitourinary: negative: Dysuria, Frequency, Incontinence, Hematuria, Retention , Other Musculoskeletal: Leg Pain. negative: Neck Pain, Shoulder Pain, Arm Pain, Back Pain, Hand Pain, Foot Pain, Other - Medications/Allergies Allergies/Adverse Reactions: Allergies Allergy/AdvReac Type Severity Reaction Status Date / Time No Known Allergies Allergy Verified 06/18/17 16:11 Medications: Current Medications Acetaminophen (Tylenol) 650 mg PO Q4H PRN PRN Reason: Headache/Fever or Pain Hydrocodone Bitart/Acetaminophen ([place] 5/325) 1 tab PO Q4H PRN PRN Reason: Moderate Pain (4-6) Last Admin: 06/19/17 08:20 Dose: 1 tab Al Hydroxide/Mg Hydroxide (Maalox) 30 ml PO Q6H PRN PRN Reason: Heartburn or Indigestion Artificial Tears (Tears Renewed 15ml Bottle) 0 drop EA EYE PRN PRN PRN Reason: Dry Eyes Aspirin (Aspirin) 325 mg PO DAILY [facility] Last Admin: 06/19/17 08:20 Dose: 325 mg Atorvastatin Calcium (Lipitor) 20 mg PO HS [facility] Last Admin: 06/18/17 19:56 Dose: 20 mg Carvedilol (Coreg) 3.125 mg PO BID-[facility] Last Admin: 06/19/17 08:21 Dose: Not Given Dextrose/Water (Dextrose 50%) 25 gm SLOW IVP PRN PRN PRN Reason: Hypoglycemia Enoxaparin Sodium (Lovenox) 40 mg SC 2100 [facility] Last Admin: 06/18/17 19:57 Dose: Not Given Famotidine (Pepcid) 20 mg PO BID [facility] Last Admin: 06/19/17 08:20 Dose: 20 mg Ferrous Sulfate (Feosol) 325 mg PO QAM-[facility] Last Admin: 06/19/17 08:19 Dose: 325 mg Furosemide (Lasix) 40 mg SLOW IVP 0600,1400 [facility] Last Admin: 06/19/17 05:01 Dose: 40 mg Gabapentin (Neurontin) 900 mg PO TID [facility] Last Admin: 06/19/17 08:20 Dose: 900 mg Glucagon (Glucagon) 1 mg IM PRN PRN PRN Reason: Hypoglycemia Guaifenesin (Robitussin Sf) 200 mg PO Q4H PRN PRN Reason: Cough Hydralazine HCl (Apresoline) 10 mg SLOW IVP Q4H PRN PRN Reason: Systolic BP > 180 Dextrose/Water (D5w) 1,000 mls @ 0 mls/hr IV .Q0M PRN; As Directed PRN Reason: Hypoglycemia Piperacillin Sod/Tazobactam (Sod 3.375 gm/ Sodium Chloride) 100 mls @ 200 mls/ hr IVPB 0400,1000,1600,2200 [facility] Last Admin: 06/19/17 09:19 Dose: 100 mls Vancomycin HCl 1.5 gm/ Sodium (Chloride) 300 mls @ 200 mls/hr IVPB 1000,2200 [facility] Last Admin: 06/18/17 19:55 Dose: 300 mls Insulin Human Lispro (Humalog) 0 units SC .MODERATE SLIDING SC PRN PRN Reason: Moderate Correctional Scale Insulin Human Lispro (Humalog) 0 units SC .BEDTIME SLIDING SC PRN PRN Reason: Bedtime Correctional Scale Loperamide HCl (Imodium) 2 mg PO PRN PRN PRN Reason: Diarrhea/Loose Stools Loratadine (Claritin) 10 mg PO DAILYPRN PRN PRN Reason: Sinus Symptoms Magnesium Hydroxide (Milk Of Magnesium) 30 ml PO DAILYPRN PRN PRN Reason: Constipation Mineral Oil/White Petrolatum (Eucerin Cream) 0 gm TOP BIDPRN PRN PRN Reason: Dry Skin Miscellaneous Medication (Pharmacy To Dose) 1 each IVPB PRN PRN PRN Reason: Pharmacy to dose Morphine Sulfate (Morphine) 4 mg SLOW IVP Q4H PRN PRN Reason: Pain Nitroglycerin (Nitrostat) 0.4 mg SL Q5MIN PRN PRN Reason: Chest Pain Ondansetron HCl (Zofran Odt) 4 mg PO Q6H PRN PRN Reason: Nausea/Vomiting Ondansetron HCl (Zofran) 4 mg IVP Q6H PRN PRN Reason: Nausea/Vomiting Phenol (Chloraseptic [place] 180 Ml Bot) 0 ml PO PRN PRN PRN Reason: Sore Throat Saccharomyces Boulardii (Florastor) 250 mg PO DAILY [facility] Last Admin: 06/19/17 08:19 Dose: 250 mg Senna (Senokot) 2 tab PO HSPRN PRN PRN Reason: Constipation Sodium Chloride ([place] Nasal [place] 0.65%) 0 ml EA NARE QIDPRN PRN PRN Reason: Nasal Congestion Zolpidem Tartrate (Ambien) 5 mg PO HSPRN PRN PRN Reason: Insomnia
[2017-06-19] MEDS: Vancomycin HCl 1.5 GM in Sodium Chloride 0.9% 250 ML 300 ML IVPB SCH ×2 (10:46→22:34)
[2017-06-19] MEDS: HumaLOG 300 UNITS/3 ML VIAL SC PRN ×2 (12:13→18:13)
[2017-06-19] MEDS: Enoxaparin Sodium 40 MG/0.4 ML SYRINGE SC SCH (20:13)
[2017-06-19] MEDS: Atorvastatin Calcium 20 MG TAB PO SCH (20:13)
[2017-06-19 21:36] LABS: Vancomycin, Trough 19.4 ug/mL
[2017-06-20] MEDS: Piperacillin/Tazobactam 3.375 GM in Sodium Chloride 0.9% 100 ML IVPB SCH (04:16)
[2017-06-20] MEDS: HYDROcodone/Acetaminophen 5/325 mg Tablet PO PRN ×4 (05:18→23:57)
[2017-06-20] MEDS: Furosemide 40 MG/4 ML VIAL SLOW IVP SCH ×2 (06:49→15:22)
[2017-06-20] MEDS: Famotidine 20 MG TAB PO SCH ×2 (08:06→20:33)
[2017-06-20] MEDS: Carvedilol 3.125 MG TAB PO SCH ×2 (08:06→17:44)
[2017-06-20] MEDS: Saccharomyces boulardii 250 MG CAP PO SCH (08:06)
[2017-06-20] MEDS: Gabapentin 300 MG CAP PO SCH ×3 (08:06→20:33)
[2017-06-20] MEDS: Ferrous Sulfate 325 MG TAB PO SCH (08:07)
[2017-06-20] MEDS: Aspirin 325 MG TAB PO SCH (08:07)
--- NOTE | 2017-06-20 09:50 | PDOC.PN ---
- Subjective Encounter Start Date: 06/20/17 Encounter Start Time: 09:10 still has edema leg, has tenterness and hardness over left posterior thigh, no fever - Objective Resuscitation Status: Resuscitation Status FULL:Full Resuscitation MAR Reviewed: Yes Vital Signs & Weight: Vital Signs (12 hours) Temp Pulse Resp BP Pulse Ox 06/20/17 07:47 98.4 F 66 18 111/74 90 L Weight Admit Weight 234 lb Weight 234 lb I&O: 06/19/17 06/20/17 06/21/17 06:59 06:59 06:59 Intake Total 1670 2330 Balance 1670 2330 Result Diagrams: 06/19/17 05:22 06/19/17 05:22 Additional Labs: Accuchecks 06/20/17 06/19/17 06/19/17 05:39 19:29 16:53 POC Glucose 174 H 227 H 219 H 06/19/17 11:09 POC Glucose 187 H Phys Exam - Physical Examination Constitutional: NAD HEENT: PERRLA, moist MMs, sclera anicteric Neck: no JVD, supple Respiratory: no wheezing, no rales, no rhonchi Cardiovascular: RRR, no significant murmur, no rub Gastrointestinal: soft, non-tender, no distention, positive bowel sounds Musculoskeletal: pulses present, edema present Neurological: non-focal, normal sensation, moves all 4 limbs Lymphatic: no nodes Psychiatric: normal affect, A&O x 3 Skin: no rash, normal turgor Dx/Plan (1) Acute on chronic systolic (congestive) heart failure Code(s): I50.23 - ACUTE ON CHRONIC SYSTOLIC (CONGESTIVE) HEART FAILURE Status : Acute (2) Bilateral lower extremity edema Code(s): R60.0 - LOCALIZED EDEMA Status: Acute Comment: due to 1 (3) H/O four vessel coronary artery bypass graft Code(s): Z95.1 - PRESENCE OF AORTOCORONARY BYPASS GRAFT Status: Acute (4) Wound, surgical, infected Code(s): T81.4XXA - INFECTION FOLLOWING A PROCEDURE, INITIAL ENCOUNTER Status : Acute (5) Anemia, normocytic normochromic Code(s): D64.9 - ANEMIA, UNSPECIFIED Status: Chronic (6) CAD (coronary artery disease) Code(s): I25.10 - ATHSCL HEART DISEASE OF [place] CORONARY ARTERY W/O ANG PCTRS Status: Chronic (7) Chronic low back pain Code(s): M54.5 - LOW BACK PAIN; G89.29 - OTHER CHRONIC PAIN Status: Chronic (8) Diabetic neuropathy Code(s): E11.40 - TYPE 2 DIABETES MELLITUS WITH DIABETIC NEUROPATHY, UNSP Status: Chronic (9) Dyslipidemia Code(s): E78.5 - HYPERLIPIDEMIA, UNSPECIFIED Status: Chronic (10) HTN (hypertension) Code(s): I10 - ESSENTIAL (PRIMARY) HYPERTENSION Status: Chronic Comment: Well controlled at Goal, folow cardiology recommedations. (11) Obesity (BMI 30-39.9) Code(s): E66.9 - OBESITY, UNSPECIFIED Status: Chronic - Plan cont current plan of care, continue antibiotics * will DC zosyn and start rocephin 2 gm IV daily * DC KVO fluid * get US bilateral lower extrimity to rule out DVT * medication reviewed as below * symptomatic treatment * continue IV lasix * monitor labs. * keep leg elevated * wound care * pain controlled Review of Systems - Review of Systems Constitutional: negative: fever, chills, sweats, weakness, malaise, other Eyes: negative: Pain, Vision Change, Conjunctivae Inflammation, Eyelid Inflammation, Redness, Other ENT: negative: Ear Pain, Ear Discharge, Nose Pain, Nose Discharge, Nose Congestion, Mouth Pain, Mouth Swelling, Throat Pain, Throat Swelling, Other Respiratory: negative: Cough, Dry, Shortness of Breath, Hemoptysis, SOB with Excertion, Pleuritic Pain, Sputum, Wheezing Cardiovascular: edema. negative: chest pain, palpitations, orthopnea, paroxysmal nocturnal dyspnea, light headedness, other Gastrointestinal: negative: Nausea, Vomiting, Abdominal Pain, Diarrhea, Constipation, Melena, Hematochezia, Other Genitourinary: negative: Dysuria, Frequency, Incontinence, Hematuria, Retention , Other Musculoskeletal: Leg Pain. negative: Neck Pain, Shoulder Pain, Arm Pain, Back Pain, Hand Pain, Foot Pain, Other Skin: negative: Rash, Lesions, Manfred, Bruising, Other - Medications/Allergies Allergies/Adverse Reactions: Allergies Allergy/AdvReac Type Severity Reaction Status Date / Time No Known Allergies Allergy Verified 06/18/17 16:11 Medications: Current Medications Acetaminophen (Tylenol) 650 mg PO Q4H PRN PRN Reason: Headache/Fever or Pain Hydrocodone Bitart/Acetaminophen ([place] 5/325) 1 tab PO Q4H PRN PRN Reason: Moderate Pain (4-6) Last Admin: 06/20/17 05:18 Dose: 1 tab Al Hydroxide/Mg Hydroxide (Maalox) 30 ml PO Q6H PRN PRN Reason: Heartburn or Indigestion Artificial Tears (Tears Renewed 15ml Bottle) 0 drop EA EYE PRN PRN PRN Reason: Dry Eyes Aspirin (Aspirin) 325 mg PO DAILY [facility] Last Admin: 06/20/17 08:07 Dose: 325 mg Atorvastatin Calcium (Lipitor) 20 mg PO HS [facility] Last Admin: 06/19/17 20:13 Dose: 20 mg Carvedilol (Coreg) 3.125 mg PO BID-[facility] Last Admin: 06/20/17 08:06 Dose: 3.125 mg Dextrose/Water (Dextrose 50%) 25 gm SLOW IVP PRN PRN PRN Reason: Hypoglycemia Enoxaparin Sodium (Lovenox) 40 mg SC 2100 [facility] Last Admin: 06/19/17 20:13 Dose: Not Given Famotidine (Pepcid) 20 mg PO BID [facility] Last Admin: 06/20/17 08:06 Dose: 20 mg Ferrous Sulfate (Feosol) 325 mg PO QAM-[facility] Last Admin: 06/20/17 08:07 Dose: 325 mg Furosemide (Lasix) 40 mg SLOW IVP 0600,1400 [facility] Last Admin: 06/20/17 06:49 Dose: 40 mg Gabapentin (Neurontin) 900 mg PO TID [facility] Last Admin: 06/20/17 08:06 Dose: 900 mg Glucagon (Glucagon) 1 mg IM PRN PRN PRN Reason: Hypoglycemia Guaifenesin (Robitussin Sf) 200 mg PO Q4H PRN PRN Reason: Cough Last Admin: 06/19/17 21:49 Dose: 200 mg Hydralazine HCl (Apresoline) 10 mg SLOW IVP Q4H PRN PRN Reason: Systolic BP > 180 Dextrose/Water (D5w) 1,000 mls @ 0 mls/hr IV .Q0M PRN; As Directed PRN Reason: Hypoglycemia Vancomycin HCl 1.5 gm/ Sodium (Chloride) 300 mls @ 200 mls/hr IVPB 1000,2200 [facility] Last Admin: 06/19/17 22:34 Dose: 300 mls Ceftriaxone Sodium 2 gm/Miscellaneous Medication 1 each/ Sodium Chloride 100 mls @ 200 mls/hr IVPB Q24HR [facility] Insulin Human Lispro (Humalog) 0 units SC .MODERATE SLIDING SC PRN PRN Reason: Moderate Correctional Scale Last Admin: 06/19/17 18:13 Dose: 4 unit Insulin Human Lispro (Humalog) 0 units SC .BEDTIME SLIDING SC PRN PRN Reason: Bedtime Correctional Scale Loperamide HCl (Imodium) 2 mg PO PRN PRN PRN Reason: Diarrhea/Loose Stools Loratadine (Claritin) 10 mg PO DAILYPRN PRN PRN Reason: Sinus Symptoms Magnesium Hydroxide (Milk Of Magnesium) 30 ml PO DAILYPRN PRN PRN Reason: Constipation Mineral Oil/White Petrolatum (Eucerin Cream) 0 gm TOP BIDPRN PRN PRN Reason: Dry Skin Miscellaneous Medication (Pharmacy To Dose) 1 each IVPB PRN PRN PRN Reason: Pharmacy to dose Morphine Sulfate (Morphine) 4 mg SLOW IVP Q4H PRN PRN Reason: Pain Nitroglycerin (Nitrostat) 0.4 mg SL Q5MIN PRN PRN Reason: Chest Pain Ondansetron HCl (Zofran Odt) 4 mg PO Q6H PRN PRN Reason: Nausea/Vomiting Ondansetron HCl (Zofran) 4 mg IVP Q6H PRN PRN Reason: Nausea/Vomiting Phenol (Chloraseptic [place] 180 Ml Bot) 0 ml PO PRN PRN PRN Reason: Sore Throat Saccharomyces Boulardii (Florastor) 250 mg PO DAILY [facility] Last Admin: 06/20/17 08:06 Dose: 250 mg Senna (Senokot) 2 tab PO HSPRN PRN PRN Reason: Constipation Sodium Chloride ([place] Nasal [place] 0.65%) 0 ml EA NARE QIDPRN PRN PRN Reason: Nasal Congestion Sodium Chloride (Flush - Normal Saline) 10 ml IVF Q12HR [facility] Last Admin: 06/20/17 08:07 Dose: 10 ml Sodium Chloride (Flush - Normal Saline) 10 ml IVF PRN PRN PRN Reason: Saline Flush Zolpidem Tartrate (Ambien) 5 mg PO HSPRN PRN PRN Reason: Insomnia
[2017-06-20] MEDS: cefTRIAXone\\ROCEPHIN 2 GM, Admixture Fee 1 EACH in Sodium Chloride 0.9% 100 ML IVPB SCH (09:59)
[2017-06-20] MEDS: Vancomycin HCl 1.5 GM in Sodium Chloride 0.9% 250 ML 300 ML IVPB SCH ×2 (11:09→22:45)
[2017-06-20] MEDS: HumaLOG 300 UNITS/3 ML VIAL SC PRN ×2 (13:00→17:44)
[2017-06-20] MEDS: Atorvastatin Calcium 20 MG TAB PO SCH (20:32)
[2017-06-20] MEDS: Enoxaparin Sodium 40 MG/0.4 ML SYRINGE SC SCH (20:33)
[2017-06-21] MEDS: Morphine 5 MG/ML SYRINGE SLOW IVP PRN ×2 (01:35→12:16)
[2017-06-21] MEDS: Furosemide 40 MG/4 ML VIAL SLOW IVP SCH ×2 (05:51→15:33)
[2017-06-21 05:54] LABS: #Basophils 0.1 thou/uL (0.0-0.2); #Eosinphils 0.5 thou/uL (0.0-0.7); #Lymphocytes 2.4 thou/uL (1.20-3.40); #Monocytes 0.8 thou/uL (0.11-0.59); #Neutrophils 4.6 thou/uL (1.40-6.50); %Basophils 0.9 % (0.0-1.0); %Eosinophils 5.6 % (0.0-10.0); %Lymphocytes 28.7 % (21.0-51.0); %Monocytes 9.2 % (0.0-10.0); %Neutrophils 55.7 % (42.0-75.0); Hemoglobin 9.5 g/dL (14.0-18.0); Mean Corpuscular HGB CONC 32.4 g/dL (32.0-36.0); Mean Corpuscular Hemoglobin 30.1 pg (27.0-31.0); Mean Corpuscular Volume 93.1 fl (80.0-94.0); Mean Platelet Volume 6.6 fL (7.4-10.4); Platelet Count 321 thou/uL (130-400); RBC Distribution Width 13.4 % (11.5-14.5); Red Blood Cell (RBC) Count 3.16 mill/uL (4.70-6.10); White Blood Cell (WBC) Count 8.2 thou/uL (4.8-10.8)
[2017-06-21] MEDS: HumaLOG 300 UNITS/3 ML VIAL SC PRN ×2 (05:56→16:48)
[2017-06-21 06:32] LABS: Anion Gap 10 mmol/L (10-20); BUN (Urea Nitrogen) 21 mg/dL (8.4-25.7); Calc. Creatinine Clearance 157 mL/min (70-130); Calcium 8.3 mg/dL (7.8-10.44); Carbon Dioxide 30 mmol/L (22-29); Chloride 100 mmol/L (98-107); Estimated GFR-MDRD Greater than 90; Glucose 217 mg/dL (70-105); Potassium 4.4 mmol/L (3.5-5.1); Sodium 136 mmol/L (136-145)
--- NOTE | 2017-06-21 06:33 | ULT ---
ULTRASOUND WITH VENOUS DOPPLER DUPLEX BILATERAL LOWER EXTREMITIES: CPT: 97735 ICD-10-PCS: B54D HISTORY: Bilateral lower extremity edema. TECHNIQUE: Color-flow Doppler spectral wave-form analysis of pulsed Doppler, and melendez-scale imaging with luz maria teo and augmentation were used to evaluate the bilateral common femoral, femoral, popliteal, posteri or tibial, and superficial femoral veins and the proximal portions of the profunda femoral and greate r saphenous veins. FINDINGS: Appropriate compressibility and flow within the imaged deep venous system of each lower extremity. IMPRESSION: No deep venous thrombosis of the bilateral lower extremities. POS: C
[2017-06-21] MEDS: Aspirin 325 MG TAB PO SCH (08:53)
[2017-06-21] MEDS: HYDROcodone/Acetaminophen 5/325 mg Tablet PO PRN ×3 (08:53→23:59)
[2017-06-21] MEDS: glyBURIDE 5 MG TAB PO SCH (08:54)
[2017-06-21] MEDS: Famotidine 20 MG TAB PO SCH ×2 (08:54→21:52)
[2017-06-21] MEDS: Saccharomyces boulardii 250 MG CAP PO SCH (08:54)
[2017-06-21] MEDS: Ferrous Sulfate 325 MG TAB PO SCH (08:55)
[2017-06-21] MEDS: Carvedilol 3.125 MG TAB PO SCH ×2 (08:55→16:10)
[2017-06-21] MEDS: Gabapentin 300 MG CAP PO SCH ×3 (08:55→21:52)
[2017-06-21] MEDS: Vancomycin HCl 1.5 GM in Sodium Chloride 0.9% 250 ML 300 ML IVPB SCH ×2 (09:21→21:53)
[2017-06-21 09:43] LABS: Vancomycin, Trough 18.8 ug/mL
--- NOTE | 2017-06-21 10:50 | PDOC.PN ---
- Subjective Encounter Start Date: 06/21/17 Encounter Start Time: 08:40 Patient seen and examined. No new complaints. No overnight events - Objective Resuscitation Status: Resuscitation Status FULL:Full Resuscitation MAR Reviewed: Yes Vital Signs & Weight: Vital Signs (12 hours) Temp Pulse Resp BP Pulse Ox 06/21/17 07:15 98.3 F 71 18 131/78 92 L 06/21/17 04:00 97.8 F 74 20 129/73 90 L 06/21/17 00:00 97.7 F 69 20 99 Weight Admit Weight 234 lb Weight 234 lb I&O: 06/20/17 06/21/17 06/22/17 06:59 06:59 06:59 Intake Total 2330 1900 Balance 2330 1900 Result Diagrams: 06/21/17 05:05 06/21/17 05:05 Additional Labs: Accuchecks 06/21/17 06/20/17 06/20/17 05:40 20:28 16:30 POC Glucose 225 H 229 H 197 H 06/20/17 11:51 POC Glucose 203 H Phys Exam - Physical Examination Constitutional: NAD HEENT: PERRLA, moist MMs, sclera anicteric Neck: no JVD, supple Respiratory: no wheezing, no rales, no rhonchi Cardiovascular: RRR, no significant murmur, no rub Gastrointestinal: soft, non-tender, no distention, positive bowel sounds Musculoskeletal: pulses present, edema present Neurological: non-focal, normal sensation, moves all 4 limbs Psychiatric: normal affect, A&O x 3 Skin: no rash, normal turgor Dx/Plan (1) Acute on chronic systolic (congestive) heart failure Code(s): I50.23 - ACUTE ON CHRONIC SYSTOLIC (CONGESTIVE) HEART FAILURE Status : Acute (2) Bilateral lower extremity edema Code(s): R60.0 - LOCALIZED EDEMA Status: Acute Comment: due to 1 (3) H/O four vessel coronary artery bypass graft Code(s): Z95.1 - PRESENCE OF AORTOCORONARY BYPASS GRAFT Status: Acute (4) Wound, surgical, infected Code(s): T81.4XXA - INFECTION FOLLOWING A PROCEDURE, INITIAL ENCOUNTER Status : Acute (5) Anemia, normocytic normochromic Code(s): D64.9 - ANEMIA, UNSPECIFIED Status: Chronic (6) CAD (coronary artery disease) Code(s): I25.10 - ATHSCL HEART DISEASE OF [place] CORONARY ARTERY W/O ANG PCTRS Status: Chronic (7) Chronic low back pain Code(s): M54.5 - LOW BACK PAIN; G89.29 - OTHER CHRONIC PAIN Status: Chronic (8) Diabetic neuropathy Code(s): E11.40 - TYPE 2 DIABETES MELLITUS WITH DIABETIC NEUROPATHY, UNSP Status: Chronic (9) Dyslipidemia Code(s): E78.5 - HYPERLIPIDEMIA, UNSPECIFIED Status: Chronic (10) HTN (hypertension) Code(s): I10 - ESSENTIAL (PRIMARY) HYPERTENSION Status: Chronic Comment: Well controlled at Goal, folow cardiology recommedations. (11) Obesity (BMI 30-39.9) Code(s): E66.9 - OBESITY, UNSPECIFIED Status: Chronic - Plan cont current plan of care, plan discussed w/ family, continue antibiotics * continue vancomycin and rocephin * continue lasix * overall slowly improving but not ready for discharge yet * add glyburide 5 mg po daily for high blood sugar * medication reviewed as below * symptomatic treatment. Review of Systems - Review of Systems Constitutional: negative: fever, chills, sweats, weakness, malaise, other ENT: negative: Ear Pain, Ear Discharge, Nose Pain, Nose Discharge, Nose Congestion, Mouth Pain, Mouth Swelling, Throat Pain, Throat Swelling, Other Respiratory: negative: Cough, Dry, Shortness of Breath, Hemoptysis, SOB with Excertion, Pleuritic Pain, Sputum, Wheezing Cardiovascular: edema. negative: chest pain, palpitations, orthopnea, paroxysmal nocturnal dyspnea, light headedness, other Gastrointestinal: negative: Nausea, Vomiting, Abdominal Pain, Diarrhea, Constipation, Melena, Hematochezia, Other Genitourinary: negative: Dysuria, Frequency, Incontinence, Hematuria, Retention , Other Musculoskeletal: Leg Pain. negative: Neck Pain, Shoulder Pain, Arm Pain, Back Pain, Hand Pain, Foot Pain, Other - Medications/Allergies Allergies/Adverse Reactions: Allergies Allergy/AdvReac Type Severity Reaction Status Date / Time No Known Allergies Allergy Verified 06/18/17 16:11 Medications: Current Medications Acetaminophen (Tylenol) 650 mg PO Q4H PRN PRN Reason: Headache/Fever or Pain Hydrocodone Bitart/Acetaminophen ([place] 5/325) 1 tab PO Q4H PRN PRN Reason: Moderate Pain (4-6) Last Admin: 06/21/17 08:53 Dose: 1 tab Al Hydroxide/Mg Hydroxide (Maalox) 30 ml PO Q6H PRN PRN Reason: Heartburn or Indigestion Artificial Tears (Tears Renewed 15ml Bottle) 0 drop EA EYE PRN PRN PRN Reason: Dry Eyes Aspirin (Aspirin) 325 mg PO DAILY [facility] Last Admin: 06/21/17 08:53 Dose: 325 mg Atorvastatin Calcium (Lipitor) 20 mg PO HS [facility] Last Admin: 06/20/17 20:32 Dose: 20 mg Carvedilol (Coreg) 3.125 mg PO BID-[facility] Last Admin: 06/21/17 08:55 Dose: 3.125 mg Dextrose/Water (Dextrose 50%) 25 gm SLOW IVP PRN PRN PRN Reason: Hypoglycemia Enoxaparin Sodium (Lovenox) 40 mg SC 2100 [facility] Last Admin: 06/20/17 20:33 Dose: Not Given Famotidine (Pepcid) 20 mg PO BID [facility] Last Admin: 06/21/17 08:54 Dose: 20 mg Ferrous [facility]) [facility] Last Admin: 06/21/17 08:55 Dose: 325 mg Furosemide (Lasix) 40 mg SLOW IVP 0600,1400 [facility] Last Admin: 06/21/17 05:51 Dose: 40 mg Gabapentin (Neurontin) 900 mg PO TID [facility] Last Admin: 06/21/17 08:55 Dose: 900 mg Glucagon (Glucagon) 1 mg IM PRN PRN PRN Reason: Hypoglycemia [facility]buride (Diabeta) [facility] Last Admin: 06/21/17 08:54 Dose: Not Given Guaifenesin (Robitussin Sf) 200 mg PO Q4H PRN PRN Reason: Cough Last Admin: 06/19/17 21:49 Dose: 200 mg Hydralazine HCl (Apresoline) 10 mg SLOW IVP Q4H PRN PRN Reason: Systolic BP > 180 Dextrose/Water (D5w) 1,000 mls @ 0 mls/hr IV .Q0M PRN; As Directed PRN Reason: Hypoglycemia Vancomycin HCl 1.5 gm/ Sodium (Chloride) 300 mls @ 200 mls/hr IVPB 1000,2200 [facility] Last Admin: 06/21/17 09:21 Dose: 300 mls Ceftriaxone Sodium 2 gm/Miscellaneous Medication 1 each/ Sodium Chloride 100 mls @ 200 mls/hr IVPB Q24HR [facility] Last Admin: 06/20/17 09:59 Dose: 100 mls Insulin Human Lispro (Humalog) 0 units SC .MODERATE SLIDING SC PRN PRN Reason: Moderate Correctional Scale Last Admin: 06/21/17 05:56 Dose: 4 unit Insulin Human Lispro (Humalog) 0 units SC .BEDTIME SLIDING SC PRN PRN Reason: Bedtime Correctional Scale Loperamide HCl (Imodium) 2 mg PO PRN PRN PRN Reason: Diarrhea/Loose Stools Loratadine (Claritin) 10 mg PO DAILYPRN PRN PRN Reason: Sinus Symptoms Magnesium Hydroxide (Milk Of Magnesium) 30 ml PO DAILYPRN PRN PRN Reason: Constipation Mineral Oil/White Petrolatum (Eucerin Cream) 0 gm TOP BIDPRN PRN PRN Reason: Dry Skin Miscellaneous Medication (Pharmacy To Dose) 1 each IVPB PRN PRN PRN Reason: Pharmacy to dose Morphine Sulfate (Morphine) 4 mg SLOW IVP Q4H PRN PRN Reason: Pain Last Admin: 06/21/17 01:35 Dose: 4 mg Nitroglycerin (Nitrostat) 0.4 mg SL Q5MIN PRN PRN Reason: Chest Pain Ondansetron HCl (Zofran Odt) 4 mg PO Q6H PRN PRN Reason: Nausea/Vomiting Ondansetron HCl (Zofran) 4 mg IVP Q6H PRN PRN Reason: Nausea/Vomiting Phenol (Chloraseptic [place] 180 Ml Bot) 0 ml PO PRN PRN PRN Reason: Sore Throat Saccharomyces Boulardii (Florastor) 250 mg PO DAILY [facility] Last Admin: 06/21/17 08:54 Dose: 250 mg Senna (Senokot) 2 tab PO HSPRN PRN PRN Reason: Constipation Sodium Chloride ([place] Nasal [place] 0.65%) 0 ml EA NARE QIDPRN PRN PRN Reason: Nasal Congestion Sodium Chloride (Flush - Normal Saline) 10 ml IVF Q12HR [facility] Last Admin: 06/21/17 09:27 Dose: 10 ml Sodium Chloride (Flush - Normal Saline) 10 ml IVF PRN PRN PRN Reason: Saline Flush Zolpidem Tartrate (Ambien) 5 mg PO HSPRN PRN PRN Reason: Insomnia
[2017-06-21] MEDS: cefTRIAXone\\ROCEPHIN 2 GM, Admixture Fee 1 EACH in Sodium Chloride 0.9% 100 ML IVPB SCH ×2 (15:22→15:35)
[2017-06-21] MEDS ORDERED: Metolazone 5 MG TAB PO SCH (17:00)
[2017-06-21] MEDS: Atorvastatin Calcium 20 MG TAB PO SCH (21:52)
[2017-06-21] MEDS: Enoxaparin Sodium 40 MG/0.4 ML SYRINGE SC SCH (21:52)
[2017-06-22] MEDS: HYDROcodone/Acetaminophen 5/325 mg Tablet PO PRN ×4 (06:00→23:54)
[2017-06-22] MEDS: Furosemide 40 MG/4 ML VIAL SLOW IVP SCH ×2 (06:02→14:54)
[2017-06-22] MEDS: Carvedilol 3.125 MG TAB PO SCH ×2 (07:32→19:11)
--- NOTE | 2017-06-22 08:26 | ULT ---
SOFT TISSUE ULTRASOUND LEFT THIGH: Indication: Left thigh pain and swelling. Redness, tenderness, medial left thigh at the region of gre ater saphenous vein harvest two weeks ago. FINDINGS/IMPRESSION: There is a hypoechoic fluid like collection seen along the course of the great saphenous vein in the medial left thigh which measures approximately 1 cm thickness x approximately 5-6 cm in length along the course of the greater saphenous vein at the saphenous vein harvest site. Considerations include a bscess, hematoma, and seroma. POS: CHERISE
[2017-06-22] MEDS ORDERED: HYDROmorphone 0.5 MG/0.5 ML SYRINGE ONE (09:04)
[2017-06-22] MEDS ORDERED: Fentanyl 100 MCG/2 ML VIAL ONE (09:04)
[2017-06-22] MEDS ORDERED: Albumin 5% 0 ML ONE (09:04)
[2017-06-22] MEDS ORDERED: Promethazine HCl 25 MG/ML VIAL ONE (09:07)
[2017-06-22] MEDS ORDERED: Ketamine 50 MG/ML VIAL ONE (09:18)
[2017-06-22] MEDS ORDERED: Midazolam HCl 2 mg/2 ml Vial ONE (09:18)
[2017-06-22] MEDS ORDERED: Ondansetron HCl/PF 4 MG/2 ML Vial IVP PRN (10:12)
[2017-06-22] MEDS ORDERED: Morphine Sulfate 2 MG/ML SYRINGE SLOW IVP PRN (10:12)
[2017-06-22] MEDS ORDERED: Promethazine HCl 25 MG/ML VIAL SLOW IVP PRN (10:12)
--- NOTE | 2017-06-22 10:31 | OP ---
DATE OF PROCEDURE: 06/22/2017 PREOPERATIVE DIAGNOSIS: Possible infection EVH tunnel site left thigh. PROCEDURE: I&D left EVH tunnel. SURGEON: Dr. aJison Cross FINDINGS: The patient had no evidence of infection in the tunnel. PROCEDURE: After prepping and draping and after ultrasound guidance, an incision was made in the mid thigh and carried down to the tunnel. Cultures were obtained, but the fluid appeared uninfected. A separate incision was made more distally and the tunnel communicated. Following this, the wound was irrigated thoroughly and packed and he is to be taken to the recovery room.
--- NOTE | 2017-06-22 10:43 | PDOC.PN ---
- Subjective Encounter Start Date: 06/22/17 Encounter Start Time: 08:20 Patient seen and examined. No new complaints. No overnight events s/p I & D today - Objective Resuscitation Status: Resuscitation Status FULL:Full Resuscitation MAR Reviewed: Yes Vital Signs & Weight: Vital Signs (12 hours) Temp Pulse Resp BP Pulse Ox 06/22/17 08:00 97.7 F 68 14 126/76 94 L 06/22/17 04:00 98.1 F 63 18 123/72 95 06/22/17 00:00 98.1 F 65 18 133/73 97 Weight Admit Weight 234 lb Weight 234 lb I&O: 06/21/17 06/22/17 06/23/17 06:59 06:59 06:59 Intake Total 1900 780 Balance 1900 780 Result Diagrams: 06/21/17 05:05 06/21/17 05:05 Additional Labs: Accuchecks 06/22/17 06/21/17 06/21/17 04:45 20:36 16:42 POC Glucose 222 H 252 H 290 H 06/21/17 11:49 POC Glucose 204 H Radiology Reviewed by me: Yes (US noted) Phys Exam - Physical Examination Constitutional: NAD HEENT: PERRLA, moist MMs, sclera anicteric Neck: no JVD, supple Respiratory: no wheezing, no rales, no rhonchi Cardiovascular: RRR, no significant murmur, no rub Gastrointestinal: soft, non-tender, no distention, positive bowel sounds Musculoskeletal: pulses present, edema present Neurological: non-focal, normal sensation Lymphatic: no nodes Psychiatric: normal affect, A&O x 3 Skin: no rash, normal turgor Dx/Plan (1) Acute on chronic systolic (congestive) heart failure Code(s): I50.23 - ACUTE ON CHRONIC SYSTOLIC (CONGESTIVE) HEART FAILURE Status : Acute (2) Bilateral lower extremity edema Code(s): R60.0 - LOCALIZED EDEMA Status: Acute Comment: due to 1 (3) H/O four vessel coronary artery bypass graft Code(s): Z95.1 - PRESENCE OF AORTOCORONARY BYPASS GRAFT Status: Acute (4) Wound, surgical, infected Code(s): T81.4XXA - INFECTION FOLLOWING A PROCEDURE, INITIAL ENCOUNTER Status : Acute (5) Anemia, normocytic normochromic Code(s): D64.9 - ANEMIA, UNSPECIFIED Status: Chronic (6) CAD (coronary artery disease) Code(s): I25.10 - ATHSCL HEART DISEASE OF [place] CORONARY ARTERY W/O ANG PCTRS Status: Chronic (7) Chronic low back pain Code(s): M54.5 - LOW BACK PAIN; G89.29 - OTHER CHRONIC PAIN Status: Chronic (8) Diabetic neuropathy Code(s): E11.40 - TYPE 2 DIABETES MELLITUS WITH DIABETIC NEUROPATHY, UNSP Status: Chronic (9) Dyslipidemia Code(s): E78.5 - HYPERLIPIDEMIA, UNSPECIFIED Status: Chronic (10) HTN (hypertension) Code(s): I10 - ESSENTIAL (PRIMARY) HYPERTENSION Status: Chronic Comment: Well controlled at Goal, folow cardiology recommedations. (11) Obesity (BMI 30-39.9) Code(s): E66.9 - OBESITY, UNSPECIFIED Status: Chronic - Plan cont current plan of care, continue antibiotics * continue wound care * continue rocephin and vancomycin * continue lasix for edema * medication reviewed as below * symptomatic treatment. Review of Systems - Review of Systems Constitutional: negative: fever, chills, sweats, weakness, malaise, other Eyes: negative: Pain, Vision Change, Conjunctivae Inflammation, Eyelid Inflammation, Redness, Other ENT: negative: Ear Pain, Ear Discharge, Nose Pain, Nose Discharge, Nose Congestion, Mouth Pain, Mouth Swelling, Throat Pain, Throat Swelling, Other Respiratory: negative: Cough, Dry, Shortness of Breath, Hemoptysis, SOB with Excertion, Pleuritic Pain, Sputum, Wheezing Cardiovascular: negative: chest pain, palpitations, orthopnea, paroxysmal nocturnal dyspnea, edema, light headedness, other Gastrointestinal: negative: Nausea, Vomiting, Abdominal Pain, Diarrhea, Constipation, Melena, Hematochezia, Other Genitourinary: negative: Dysuria, Frequency, Incontinence, Hematuria, Retention , Other Musculoskeletal: negative: Neck Pain, Shoulder Pain, Arm Pain, Back Pain, Hand Pain, Leg Pain, Foot Pain, Other Skin: negative: Rash, Lesions, Manfred, Bruising, Other - Medications/Allergies Allergies/Adverse Reactions: Allergies Allergy/AdvReac Type Severity Reaction Status Date / Time No Known Allergies Allergy Verified 06/18/17 16:11 Medications: Current Medications Acetaminophen (Tylenol) 650 mg PO Q4H PRN PRN Reason: Headache/Fever or Pain Hydrocodone Bitart/Acetaminophen ([place] 5/325) 1 tab PO Q4H PRN PRN Reason: Moderate Pain (4-6) Last Admin: 06/22/17 06:00 Dose: 1 tab Al Hydroxide/Mg Hydroxide (Maalox) 30 ml PO Q6H PRN PRN Reason: Heartburn or Indigestion Artificial Tears (Tears Renewed 15ml Bottle) 0 drop EA EYE PRN PRN PRN Reason: Dry Eyes Aspirin (Aspirin) 325 mg PO DAILY [facility] [place] Last Admin: 06/21/17 08:53 Dose: 325 mg Atorvastatin Calcium (Lipitor) 20 mg PO HS [facility] [place] Last Admin: 06/21/17 21:52 Dose: 20 mg [facility]) [facility] Last Admin: 06/22/17 07:32 Dose: 3.125 mg Dextrose/Water (Dextrose 50%) 25 gm SLOW IVP PRN PRN PRN Reason: Hypoglycemia Enoxaparin Sodium (Lovenox) 40 mg SC 2100 [facility] [place] Last Admin: 06/21/17 21:52 Dose: Not Given Famotidine (Pepcid) 20 mg PO BID [facility] [place] Last Admin: 06/21/17 21:52 Dose: 20 mg Fentanyl (Pacu-Sublimaze) 50 mcg SLOW IVP Q10MIN PRN PRN Reason: Moderate to Severe Pain (6-10) Stop: 06/22/17 13:12 Ferrous Sulfate (Feosol) 325 mg PO [facility] Last Admin: 06/21/17 08:55 Dose: 325 mg Furosemide (Lasix) 40 mg SLOW IVP 0600,1400 [facility] [place] Last Admin: 06/22/17 06:02 Dose: 40 mg Gabapentin (Neurontin) 900 mg PO TID [facility] Last Admin: 06/21/17 21:52 Dose: 900 mg Glucagon (Glucagon) 1 mg IM PRN PRN PRN Reason: Hypoglycemia Glyburide (Diabeta) 5 mg PO [facility] Last Admin: 06/21/17 08:54 Dose: Not Given Guaifenesin (Robitussin Sf) 200 mg PO Q4H PRN PRN Reason: Cough Last Admin: 06/19/17 21:49 Dose: 200 mg Hydralazine HCl (Apresoline) 10 mg SLOW IVP Q4H PRN PRN Reason: Systolic BP > 180 Dextrose/Water (D5w) 1,000 mls @ 0 mls/hr IV .Q0M PRN; As Directed PRN Reason: Hypoglycemia Vancomycin HCl 1.5 gm/ Sodium (Chloride) 300 mls @ 200 mls/hr IVPB 1000,2200 [facility] Last Admin: 06/21/17 21:53 Dose: 300 mls Ceftriaxone Sodium 2 gm/Miscellaneous Medication 1 each/ Sodium Chloride 100 mls @ 200 mls/hr IVPB 1500 [facility] Last Admin: 06/21/17 15:35 Dose: 100 mls Insulin Human Lispro (Humalog) 0 units SC .MODERATE SLIDING SC PRN PRN Reason: Moderate Correctional Scale Last Admin: 06/21/17 16:48 Dose: 6 unit Insulin Human Lispro (Humalog) 0 units SC .BEDTIME SLIDING SC PRN PRN Reason: Bedtime Correctional Scale Loperamide HCl (Imodium) 2 mg PO PRN PRN PRN Reason: Diarrhea/Loose Stools Loratadine (Claritin) 10 mg PO DAILYPRN PRN PRN Reason: Sinus Symptoms Magnesium Hydroxide (Milk Of Magnesium) 30 ml PO DAILYPRN PRN PRN Reason: Constipation Mineral Oil/White Petrolatum (Eucerin Cream) 0 gm TOP BIDPRN PRN PRN Reason: Dry Skin Miscellaneous Medication (Pharmacy To Dose) 1 each IVPB PRN PRN PRN Reason: Pharmacy to dose Morphine Sulfate (Morphine) 4 mg SLOW IVP Q4H PRN PRN Reason: Pain Last Admin: 06/21/17 12:16 Dose: 4 mg Morphine Sulfate (Pacu-Morphine Sulfate) 2 mg SLOW IVP Q10MIN PRN PRN Reason: Moderate to Severe Pain (6-10) Stop: 06/22/17 13:12 Morphine Sulfate (Pacu-Morphine Sulfate) 4 mg SLOW IVP ONE PRN PRN Reason: Moderate to Severe Pain (6-10) Stop: 06/22/17 13:12 Nitroglycerin (Nitrostat) 0.4 mg SL Q5MIN PRN PRN Reason: Chest Pain Ondansetron HCl (Zofran Odt) 4 mg PO Q6H PRN PRN Reason: Nausea/Vomiting Ondansetron HCl (Zofran) 4 mg IVP Q6H PRN PRN Reason: Nausea/Vomiting Ondansetron HCl (Pacu-Zofran) 4 mg IVP ONE PRN PRN Reason: Nausea/Vomiting Stop: 06/22/17 13:12 Phenol (Chloraseptic [place] 180 Ml Bot) 0 ml PO PRN PRN PRN Reason: Sore Throat Promethazine HCl (Pacu-Phenergan) 6.25 mg SLOW IVP ONE PRN PRN Reason: Nausea/Vomiting Stop: 06/22/17 13:12 Saccharomyces Boulardii (Florastor) 250 mg PO DAILY [facility] [place] Last Admin: 06/21/17 08:54 Dose: 250 mg Senna (Senokot) 2 tab PO HSPRN PRN PRN Reason: Constipation Sodium Chloride ([place] Nasal [place] 0.65%) 0 ml EA NARE QIDPRN PRN PRN Reason: Nasal Congestion Sodium Chloride (Flush - Normal Saline) 10 ml IVF Q12HR [facility] [place] Last Admin: 06/21/17 21:53 Dose: 10 ml Sodium Chloride (Flush - Normal Saline) 10 ml IVF PRN PRN PRN Reason: Saline Flush Zolpidem Tartrate (Ambien) 5 mg PO HSPRN PRN PRN Reason: Insomnia
[2017-06-22] MEDS: Vancomycin HCl 1.5 GM in Sodium Chloride 0.9% 250 ML 300 ML IVPB SCH ×2 (12:11→21:26)
[2017-06-22] MEDS: Gabapentin 300 MG CAP PO SCH ×4 (12:12→20:16)
[2017-06-22] MEDS: Famotidine 20 MG TAB PO SCH ×2 (12:12→20:17)
[2017-06-22] MEDS: Saccharomyces boulardii 250 MG CAP PO SCH (12:12)
[2017-06-22] MEDS: Ferrous Sulfate 325 MG TAB PO SCH (12:12)
[2017-06-22] MEDS: glyBURIDE 5 MG TAB PO SCH (12:12)
[2017-06-22] MEDS: Aspirin 325 MG TAB PO SCH (12:12)
[2017-06-22] MEDS: Morphine 5 MG/ML SYRINGE SLOW IVP PRN ×3 (14:33→21:24)
[2017-06-22] MEDS: cefTRIAXone\\ROCEPHIN 2 GM, Admixture Fee 1 EACH in Sodium Chloride 0.9% 100 ML IVPB SCH (14:55)
[2017-06-22 15:01] LABS: Anion Gap 10 mmol/L (10-20); BUN (Urea Nitrogen) 17 mg/dL (8.4-25.7); Calc. Creatinine Clearance 161 mL/min (70-130); Carbon Dioxide 32 mmol/L (22-29); Chloride 97 mmol/L (98-107); Estimated GFR-MDRD Greater than 90; Glucose 165 mg/dL (70-105); Potassium 3.6 mmol/L (3.5-5.1); Sodium 135 mmol/L (136-145)
[2017-06-22] MEDS ORDERED: Succinylcholine Chloride 20 MG/ML 10 ml SYRINGE FS ONE (16:21)
[2017-06-22] MEDS ORDERED: Lidocaine 1% PF 5 ML VIAL ONE (16:21)
[2017-06-22] MEDS ORDERED: Propofol 200 MG/20 ML VIAL ONE (16:21)
[2017-06-22] MEDS ORDERED: PHENYLEPHRINE-NS 100 MCG/ML 10 ML SYRINGE ONE (16:21)
[2017-06-22] MEDS ORDERED: ePHEDrine/0.9% NaCl/PF SYRINGE 50 mg/10 ml ONE (16:21)
[2017-06-22] MEDS ORDERED: Ondansetron HCl/PF 4 MG/2 ML Vial ONE (16:21)
[2017-06-22] MEDS: HumaLOG 300 UNITS/3 ML VIAL SC PRN ×2 (18:21→20:19)
[2017-06-22] MEDS: Atorvastatin Calcium 20 MG TAB PO SCH (20:17)
[2017-06-22] MEDS: Enoxaparin Sodium 40 MG/0.4 ML SYRINGE SC SCH (20:17)
[2017-06-23] MEDS: Morphine 5 MG/ML SYRINGE SLOW IVP PRN ×2 (02:43→14:47)
[2017-06-23] MEDS: HYDROcodone/Acetaminophen 5/325 mg Tablet PO PRN ×4 (05:57→21:54)
[2017-06-23] MEDS: Furosemide 40 MG/4 ML VIAL SLOW IVP SCH ×2 (05:58→15:37)
[2017-06-23] MEDS: HumaLOG 300 UNITS/3 ML VIAL SC PRN ×4 (06:02→20:47)
[2017-06-23] MEDS: Aspirin 325 MG TAB PO SCH (08:04)
[2017-06-23] MEDS: Ferrous Sulfate 325 MG TAB PO SCH (08:04)
[2017-06-23] MEDS: Saccharomyces boulardii 250 MG CAP PO SCH (08:04)
[2017-06-23] MEDS: Gabapentin 300 MG CAP PO SCH ×3 (08:04→20:44)
[2017-06-23] MEDS: Carvedilol 3.125 MG TAB PO SCH ×2 (08:05→17:38)
[2017-06-23] MEDS: glyBURIDE 5 MG TAB PO SCH ×2 (08:05→17:59)
[2017-06-23] MEDS: Famotidine 20 MG TAB PO SCH ×2 (08:05→20:44)
[2017-06-23] MEDS: Vancomycin HCl 1.5 GM in Sodium Chloride 0.9% 250 ML 300 ML IVPB SCH ×2 (11:05→21:54)
--- NOTE | 2017-06-23 11:23 | PDOC.PN ---
- Subjective Encounter Start Date: 06/23/17 Encounter Start Time: 08:50 Patient seen and examined. No new complaints. No overnight events - Objective Resuscitation Status: Resuscitation Status FULL:Full Resuscitation MAR Reviewed: Yes Vital Signs & Weight: Vital Signs (12 hours) Temp Pulse Resp BP Pulse Ox 06/23/17 07:00 97.8 F 74 16 113/69 95 06/23/17 05:00 98.1 F 78 18 121/72 95 06/23/17 00:00 98.1 F 82 20 119/69 98 Weight Admit Weight 234 lb Weight 234 lb I&O: 06/22/17 06/23/17 06/24/17 06:59 06:59 06:59 Intake Total 780 900 Balance 780 900 Result Diagrams: 06/21/17 05:05 06/22/17 14:01 Additional Labs: Accuchecks 06/23/17 06/22/17 06/22/17 05:05 20:15 16:42 POC Glucose 277 H 319 H 213 H 06/22/17 11:21 POC Glucose 202 H Phys Exam - Physical Examination Constitutional: NAD HEENT: moist MMs, sclera anicteric Neck: no JVD, supple Respiratory: no wheezing, no rales, no rhonchi Cardiovascular: RRR, no significant murmur Gastrointestinal: soft, non-tender, no distention, positive bowel sounds Musculoskeletal: pulses present, edema present wound with dressing Neurological: non-focal, normal sensation, moves all 4 limbs Psychiatric: normal affect, A&O x 3 Skin: no rash, normal turgor Dx/Plan (1) Acute on chronic systolic (congestive) heart failure Code(s): I50.23 - ACUTE ON CHRONIC SYSTOLIC (CONGESTIVE) HEART FAILURE Status : Acute (2) Bilateral lower extremity edema Code(s): R60.0 - LOCALIZED EDEMA Status: Acute Comment: due to 1 (3) H/O four vessel coronary artery bypass graft Code(s): Z95.1 - PRESENCE OF AORTOCORONARY BYPASS GRAFT Status: Acute (4) Wound, surgical, infected Code(s): T81.4XXA - INFECTION FOLLOWING A PROCEDURE, INITIAL ENCOUNTER Status : Acute (5) Anemia, normocytic normochromic Code(s): D64.9 - ANEMIA, UNSPECIFIED Status: Chronic (6) CAD (coronary artery disease) Code(s): I25.10 - ATHSCL HEART DISEASE OF [place] CORONARY ARTERY W/O ANG PCTRS Status: Chronic (7) Chronic low back pain Code(s): M54.5 - LOW BACK PAIN; G89.29 - OTHER CHRONIC PAIN Status: Chronic (8) Diabetic neuropathy Code(s): E11.40 - TYPE 2 DIABETES MELLITUS WITH DIABETIC NEUROPATHY, UNSP Status: Chronic (9) Dyslipidemia Code(s): E78.5 - HYPERLIPIDEMIA, UNSPECIFIED Status: Chronic (10) HTN (hypertension) Code(s): I10 - ESSENTIAL (PRIMARY) HYPERTENSION Status: Chronic Comment: Well controlled at Goal, folow cardiology recommedations. (11) Obesity (BMI 30-39.9) Code(s): E66.9 - OBESITY, UNSPECIFIED Status: Chronic - Plan cont current plan of care, continue antibiotics * continue wound care * pain control * continue rocephin and vancomycin * medication reviewed as below * symptomatic treatment. * increase glyburide 5 mg po bid Review of Systems - Review of Systems Constitutional: negative: fever, chills, sweats, weakness, malaise, other ENT: negative: Ear Pain, Ear Discharge, Nose Pain, Nose Discharge, Nose Congestion, Mouth Pain, Mouth Swelling, Throat Pain, Throat Swelling, Other Respiratory: negative: Cough, Dry, Shortness of Breath, Hemoptysis, SOB with Excertion, Pleuritic Pain, Sputum, Wheezing Cardiovascular: negative: chest pain, palpitations, orthopnea, paroxysmal nocturnal dyspnea, edema, light headedness, other Gastrointestinal: negative: Nausea, Vomiting, Abdominal Pain, Diarrhea, Constipation, Melena, Hematochezia, Other Genitourinary: negative: Dysuria, Frequency, Incontinence, Hematuria, Retention , Other Musculoskeletal: negative: Neck Pain, Shoulder Pain, Arm Pain, Back Pain, Hand Pain, Leg Pain, Foot Pain, Other Skin: negative: Rash, Lesions, Manfred, Bruising, Other - Medications/Allergies Allergies/Adverse Reactions: Allergies Allergy/AdvReac Type Severity Reaction Status Date / Time No Known Allergies Allergy Verified 06/18/17 16:11 Medications: Current Medications Acetaminophen (Tylenol) 650 mg PO Q4H PRN PRN Reason: Headache/Fever or Pain Hydrocodone Bitart/Acetaminophen ([place] 5/325) 1 tab PO Q4H PRN PRN Reason: Moderate Pain (4-6) Last Admin: 06/23/17 11:05 Dose: 1 tab Al Hydroxide/Mg Hydroxide (Maalox) 30 ml PO Q6H PRN PRN Reason: Heartburn or Indigestion Artificial Tears (Tears Renewed 15ml Bottle) 0 drop EA EYE PRN PRN PRN Reason: Dry Eyes Aspirin (Aspirin) 325 mg PO DAILY [facility] Last Admin: 06/23/17 08:04 Dose: 325 mg Atorvastatin Calcium (Lipitor) 20 mg PO HS [facility] Last Admin: 06/22/17 20:17 Dose: 20 mg Carvedilol (Coreg) 3.125 mg PO BID[facility] Last Admin: 06/23/17 08:05 Dose: 3.125 mg Dextrose/Water (Dextrose 50%) 25 gm SLOW IVP PRN PRN PRN Reason: Hypoglycemia Enoxaparin Sodium (Lovenox) 40 mg SC 2100 [facility] Last Admin: 06/22/17 20:17 Dose: Not Given Famotidine (Pepcid) 20 mg PO BID [facility] Last Admin: 06/23/17 08:05 Dose: 20 mg Ferrous Sulfate (Feosol) 325 mg PO QAM[facility] Last Admin: 06/23/17 08:04 Dose: 325 mg Furosemide (Lasix) 40 mg SLOW IVP 0600,1400 [facility] Last Admin: 06/23/17 05:58 Dose: 40 mg Gabapentin (Neurontin) 900 mg PO TID [facility] Last Admin: 06/23/17 08:04 Dose: 900 mg Glucagon (Glucagon) 1 mg IM PRN PRN PRN Reason: Hypoglycemia Glyburide (Diabeta) 5 mg PO BID[facility] Guaifenesin (Robitussin Sf) 200 mg PO Q4H PRN PRN Reason: Cough Last Admin: 06/19/17 21:49 Dose: 200 mg Hydralazine HCl (Apresoline) 10 mg SLOW IVP Q4H PRN PRN Reason: Systolic BP > 180 Dextrose/Water (D5w) 1,000 mls @ 0 mls/hr IV .Q0M PRN; As Directed PRN Reason: Hypoglycemia Vancomycin HCl 1.5 gm/ Sodium (Chloride) 300 mls @ 200 mls/hr IVPB 1000,2200 [facility] Last Admin: 06/23/17 11:05 Dose: 300 mls Ceftriaxone Sodium 2 gm/Miscellaneous Medication 1 each/ Sodium Chloride 100 mls @ 200 mls/hr IVPB 1500 [facility] Last Admin: 06/22/17 14:55 Dose: 100 mls Insulin Human Lispro (Humalog) 0 units SC .MODERATE SLIDING SC PRN PRN Reason: Moderate Correctional Scale Last Admin: 06/23/17 06:02 Dose: 6 unit Insulin Human Lispro (Humalog) 0 units SC .BEDTIME SLIDING SC PRN PRN Reason: Bedtime Correctional Scale Last Admin: 06/22/17 20:19 Dose: 4 unit Loperamide HCl (Imodium) 2 mg PO PRN PRN PRN Reason: Diarrhea/Loose Stools Loratadine (Claritin) 10 mg PO DAILYPRN PRN PRN Reason: Sinus Symptoms Magnesium Hydroxide (Milk Of Magnesium) 30 ml PO DAILYPRN PRN PRN Reason: Constipation Mineral Oil/White Petrolatum (Eucerin Cream) 0 gm TOP BIDPRN PRN PRN Reason: Dry Skin Miscellaneous Medication (Pharmacy To Dose) 1 each IVPB PRN PRN PRN Reason: Pharmacy to dose Morphine Sulfate (Morphine) 4 mg SLOW IVP Q3H PRN PRN Reason: Pain Last Admin: 06/23/17 02:43 Dose: 4 mg Nitroglycerin (Nitrostat) 0.4 mg SL Q5MIN PRN PRN Reason: Chest Pain Ondansetron HCl (Zofran Odt) 4 mg PO Q6H PRN PRN Reason: Nausea/Vomiting Ondansetron HCl (Zofran) 4 mg IVP Q6H PRN PRN Reason: Nausea/Vomiting Phenol (Chloraseptic [place] 180 Ml Bot) 0 ml PO PRN PRN PRN Reason: Sore Throat Saccharomyces Boulardii (Florastor) 250 mg PO DAILY [facility] Last Admin: 06/23/17 08:04 Dose: 250 mg Senna (Senokot) 2 tab PO HSPRN PRN PRN Reason: Constipation Sodium Chloride ([place] Nasal [place] 0.65%) 0 ml EA NARE QIDPRN PRN PRN Reason: Nasal Congestion Sodium Chloride (Flush - Normal Saline) 10 ml IVF Q12HR [facility] Last Admin: 06/23/17 08:05 Dose: 10 ml Sodium Chloride (Flush - Normal Saline) 10 ml IVF PRN PRN PRN Reason: Saline Flush Zolpidem Tartrate (Ambien) 5 mg PO HSPRN PRN PRN Reason: Insomnia
[2017-06-23] MEDS: cefTRIAXone\\ROCEPHIN 2 GM, Admixture Fee 1 EACH in Sodium Chloride 0.9% 100 ML IVPB SCH (15:33)
[2017-06-23] MEDS: Enoxaparin Sodium 40 MG/0.4 ML SYRINGE SC SCH (20:43)
[2017-06-23] MEDS: Atorvastatin Calcium 20 MG TAB PO SCH (20:43)
[2017-06-24] MEDS: HYDROcodone/Acetaminophen 5/325 mg Tablet PO PRN ×4 (03:38→17:20)
[2017-06-24] MEDS: Morphine 5 MG/ML SYRINGE SLOW IVP PRN ×2 (05:32→20:03)
[2017-06-24] MEDS: Furosemide 40 MG/4 ML VIAL SLOW IVP SCH ×2 (05:32→14:18)
[2017-06-24] MEDS: HumaLOG 300 UNITS/3 ML VIAL SC PRN ×2 (05:34→22:28)
[2017-06-24] MEDS: Carvedilol 3.125 MG TAB PO SCH ×2 (08:05→17:22)
[2017-06-24] MEDS: Ferrous Sulfate 325 MG TAB PO SCH (08:06)
[2017-06-24] MEDS: glyBURIDE 5 MG TAB PO SCH ×2 (08:06→16:55)
[2017-06-24] MEDS: Famotidine 20 MG TAB PO SCH ×2 (08:06→20:05)
[2017-06-24] MEDS: Aspirin 325 MG TAB PO SCH (08:06)
[2017-06-24] MEDS: Gabapentin 300 MG CAP PO SCH ×3 (08:06→20:05)
[2017-06-24] MEDS: Saccharomyces boulardii 250 MG CAP PO SCH (08:07)
[2017-06-24 09:48] LABS: Vancomycin, Trough 16.8 ug/mL
--- NOTE | 2017-06-24 10:01 | PDOC.PN ---
- Subjective Encounter Start Date: 06/24/17 Encounter Start Time: 08:15 Patient seen and examined. No new complaints. No overnight events - Objective Resuscitation Status: Resuscitation Status FULL:Full Resuscitation MAR Reviewed: Yes Vital Signs & Weight: Vital Signs (12 hours) Temp Pulse Resp BP Pulse Ox 06/24/17 08:00 98.9 F 71 16 98/61 95 06/24/17 04:58 98.6 F 71 18 117/72 95 06/23/17 23:59 98.7 F 83 20 124/75 94 L Weight Admit Weight 234 lb Weight 234 lb I&O: 06/23/17 06/24/17 06/25/17 06:59 06:59 06:59 Intake Total 900 410 360 Balance 900 410 360 Result Diagrams: 06/21/17 05:05 06/22/17 14:01 Additional Labs: Accuchecks 06/24/17 06/23/17 06/23/17 04:23 20:11 15:55 POC Glucose 307 H 207 H 201 H 06/23/17 11:14 POC Glucose 254 H Phys Exam - Physical Examination Constitutional: NAD HEENT: PERRLA, moist MMs, sclera anicteric Neck: no JVD, supple Respiratory: no wheezing, no rales, no rhonchi Cardiovascular: RRR, no significant murmur, no rub Gastrointestinal: soft, non-tender, no distention, positive bowel sounds Musculoskeletal: no edema, pulses present edema improving, wound with dressing Neurological: non-focal, normal sensation Lymphatic: no nodes Psychiatric: normal affect, A&O x 3 Skin: no rash, normal turgor Dx/Plan (1) Acute on chronic systolic (congestive) heart failure Code(s): I50.23 - ACUTE ON CHRONIC SYSTOLIC (CONGESTIVE) HEART FAILURE Status : Acute (2) Bilateral lower extremity edema Code(s): R60.0 - LOCALIZED EDEMA Status: Acute Comment: due to 1 (3) H/O four vessel coronary artery bypass graft Code(s): Z95.1 - PRESENCE OF AORTOCORONARY BYPASS GRAFT Status: Acute (4) Wound, surgical, infected Code(s): T81.4XXA - INFECTION FOLLOWING A PROCEDURE, INITIAL ENCOUNTER Status : Acute (5) Anemia, normocytic normochromic Code(s): D64.9 - ANEMIA, UNSPECIFIED Status: Chronic (6) CAD (coronary artery disease) Code(s): I25.10 - ATHSCL HEART DISEASE OF [place] CORONARY ARTERY W/O ANG PCTRS Status: Chronic (7) Chronic low back pain Code(s): M54.5 - LOW BACK PAIN; G89.29 - OTHER CHRONIC PAIN Status: Chronic (8) Diabetic neuropathy Code(s): E11.40 - TYPE 2 DIABETES MELLITUS WITH DIABETIC NEUROPATHY, UNSP Status: Chronic (9) Dyslipidemia Code(s): E78.5 - HYPERLIPIDEMIA, UNSPECIFIED Status: Chronic (10) HTN (hypertension) Code(s): I10 - ESSENTIAL (PRIMARY) HYPERTENSION Status: Chronic Comment: Well controlled at Goal, folow cardiology recommedations. (11) Obesity (BMI 30-39.9) Code(s): E66.9 - OBESITY, UNSPECIFIED Status: Chronic - Plan cont current plan of care, plan discussed w/ family, continue antibiotics * continue diuresis today. * continue IV antibiotics today * wound care * pt's will do dressing on discharge * expecting discharge tomorrow * medication reviewed as below * symptomatic treatment Review of Systems - Review of Systems ENT: negative: Ear Pain, Ear Discharge, Nose Pain, Nose Discharge, Nose Congestion, Mouth Pain, Mouth Swelling, Throat Pain, Throat Swelling, Other Respiratory: negative: Cough, Dry, Shortness of Breath, Hemoptysis, SOB with Excertion, Pleuritic Pain, Sputum, Wheezing Cardiovascular: negative: chest pain, palpitations, orthopnea, paroxysmal nocturnal dyspnea, edema, light headedness, other Gastrointestinal: negative: Nausea, Vomiting, Abdominal Pain, Diarrhea, Constipation, Melena, Hematochezia, Other Genitourinary: negative: Dysuria, Frequency, Incontinence, Hematuria, Retention , Other Musculoskeletal: negative: Neck Pain, Shoulder Pain, Arm Pain, Back Pain, Hand Pain, Leg Pain, Foot Pain, Other Skin: negative: Rash, Lesions, Manfred, Bruising, Other - Medications/Allergies Allergies/Adverse Reactions: Allergies Allergy/AdvReac Type Severity Reaction Status Date / Time No Known Allergies Allergy Verified 06/18/17 16:11 Medications: Current Medications Acetaminophen (Tylenol) 650 mg PO Q4H PRN PRN Reason: Headache/Fever or Pain Hydrocodone Bitart/Acetaminophen ([place] 5/325) 1 tab PO Q4H PRN PRN Reason: Moderate Pain (4-6) Last Admin: 06/24/17 08:09 Dose: 1 tab Al Hydroxide/Mg Hydroxide (Maalox) 30 ml PO Q6H PRN PRN Reason: Heartburn or Indigestion Artificial Tears (Tears Renewed 15ml Bottle) 0 drop EA EYE PRN PRN PRN Reason: Dry Eyes Aspirin (Aspirin) 325 mg PO DAILY [facility] Last Admin: 06/24/17 08:06 Dose: 325 mg Atorvastatin Calcium (Lipitor) 20 mg PO HS [facility] Last Admin: 06/23/17 20:43 Dose: 20 mg Carvedilol (Coreg) 3.125 mg PO BID[facility] Last Admin: 06/24/17 08:05 Dose: 3.125 mg Dextrose/Water (Dextrose 50%) 25 gm SLOW IVP PRN PRN PRN Reason: Hypoglycemia Enoxaparin Sodium (Lovenox) 40 mg SC 2100 [facility] Last Admin: 06/23/17 20:43 Dose: Not Given Famotidine (Pepcid) 20 mg PO BID [facility] Last Admin: 06/24/17 08:06 Dose: 20 mg Ferrous Sulfate (Feosol) 325 mg PO QAM[facility] Last Admin: 06/24/17 08:06 Dose: 325 mg Furosemide (Lasix) 40 mg SLOW IVP 0600,1400 [facility] Last Admin: 06/24/17 05:32 Dose: 40 mg Gabapentin (Neurontin) 900 mg PO TID [facility] Last Admin: 06/24/17 08:06 Dose: 900 mg Glucagon (Glucagon) 1 mg IM PRN PRN PRN Reason: Hypoglycemia Glyburide (Diabeta) 5 mg PO BID[facility] Last Admin: 06/24/17 08:06 Dose: 5 mg Guaifenesin (Robitussin Sf) 200 mg PO Q4H PRN PRN Reason: Cough Last Admin: 06/19/17 21:49 Dose: 200 mg Hydralazine HCl (Apresoline) 10 mg SLOW IVP Q4H PRN PRN Reason: Systolic BP > 180 Dextrose/Water (D5w) 1,000 mls @ 0 mls/hr IV .Q0M PRN; As Directed PRN Reason: Hypoglycemia Vancomycin HCl 1.5 gm/ Sodium (Chloride) 300 mls @ 200 mls/hr IVPB 1000,2200 [facility] Last Admin: 06/23/17 21:54 Dose: 300 mls Ceftriaxone Sodium 2 gm/Miscellaneous Medication 1 each/ Sodium Chloride 100 mls @ 200 mls/hr IVPB 1500 [facility] Last Admin: 06/23/17 15:33 Dose: 100 mls Insulin Human Lispro (Humalog) 0 units SC .MODERATE SLIDING SC PRN PRN Reason: Moderate Correctional Scale Last Admin: 06/24/17 05:34 Dose: 8 unit Insulin Human Lispro (Humalog) 0 units SC .BEDTIME SLIDING SC PRN PRN Reason: Bedtime Correctional Scale Last Admin: 06/23/17 20:47 Dose: 2 unit Loperamide HCl (Imodium) 2 mg PO PRN PRN PRN Reason: Diarrhea/Loose Stools Loratadine (Claritin) 10 mg PO DAILYPRN PRN PRN Reason: Sinus Symptoms Magnesium Hydroxide (Milk Of Magnesium) 30 ml PO DAILYPRN PRN PRN Reason: Constipation Mineral Oil/White Petrolatum (Eucerin Cream) 0 gm TOP BIDPRN PRN PRN Reason: Dry Skin Miscellaneous Medication (Pharmacy To Dose) 1 each IVPB PRN PRN PRN Reason: Pharmacy to dose Morphine Sulfate (Morphine) 4 mg SLOW IVP Q3H PRN PRN Reason: Pain Last Admin: 06/24/17 05:32 Dose: 4 mg Nitroglycerin (Nitrostat) 0.4 mg SL Q5MIN PRN PRN Reason: Chest Pain Ondansetron HCl (Zofran Odt) 4 mg PO Q6H PRN PRN Reason: Nausea/Vomiting Ondansetron HCl (Zofran) 4 mg IVP Q6H PRN PRN Reason: Nausea/Vomiting Phenol (Chloraseptic [place] 180 Ml Bot) 0 ml PO PRN PRN PRN Reason: Sore Throat Saccharomyces Boulardii (Florastor) 250 mg PO DAILY [facility] Last Admin: 06/24/17 08:07 Dose: 250 mg Senna (Senokot) 2 tab PO HSPRN PRN PRN Reason: Constipation Sodium Chloride ([place] Nasal [place] 0.65%) 0 ml EA NARE QIDPRN PRN PRN Reason: Nasal Congestion Sodium Chloride (Flush - Normal Saline) 10 ml IVF Q12HR [facility] Last Admin: 06/24/17 08:06 Dose: 10 ml Sodium Chloride (Flush - Normal Saline) 10 ml IVF PRN PRN PRN Reason: Saline Flush Zolpidem Tartrate (Ambien) 5 mg PO HSPRN PRN PRN Reason: Insomnia
[2017-06-24] MEDS: Vancomycin HCl 1.5 GM in Sodium Chloride 0.9% 250 ML 300 ML IVPB SCH ×2 (10:13→22:57)
[2017-06-24] MEDS: cefTRIAXone\\ROCEPHIN 2 GM, Admixture Fee 1 EACH in Sodium Chloride 0.9% 100 ML IVPB SCH (14:19)
[2017-06-24] MEDS: Enoxaparin Sodium 40 MG/0.4 ML SYRINGE SC SCH (20:05)
[2017-06-24] MEDS: Atorvastatin Calcium 20 MG TAB PO SCH (20:05)
[2017-06-25] MEDS: HYDROcodone/Acetaminophen 5/325 mg Tablet PO PRN ×2 (03:05→07:26)
[2017-06-25] MEDS: Furosemide 40 MG/4 ML VIAL SLOW IVP SCH (05:48)
[2017-06-25] MEDS: HumaLOG 300 UNITS/3 ML VIAL SC PRN (05:51)
[2017-06-25] MEDS: Saccharomyces boulardii 250 MG CAP PO SCH (07:25)
[2017-06-25] MEDS: Famotidine 20 MG TAB PO SCH (07:25)
[2017-06-25] MEDS: Gabapentin 300 MG CAP PO SCH (07:25)
[2017-06-25] MEDS: Carvedilol 3.125 MG TAB PO SCH (07:26)
[2017-06-25] MEDS: glyBURIDE 5 MG TAB PO SCH (07:26)
[2017-06-25] MEDS: Aspirin 325 MG TAB PO SCH (07:26)
[2017-06-25] MEDS: Ferrous Sulfate 325 MG TAB PO SCH (07:27)
[2017-06-25 07:34] VITALS: BP 130/79; TEMP 97.9
--- NOTE | 2017-06-25 09:26 | DIS ---
PRIMARY CARE PHYSICIAN: Jagdeep Oliveira M.D. DATE OF ADMISSION: 06/18/2017 DATE OF DISCHARGE: 06/25/2017 DISCHARGE DISPOSITION: Home. PRIMARY DISCHARGE DIAGNOSES: 1. Acute on chronic systolic congestive heart failure exacerbation. 2. Bilateral lower extremity edema due to problem #1. 3. Postoperative surgical wound infection required I&D with cellulitis and abscess. 4. Recent history of coronary artery bypass graft x4. SECONDARY DISCHARGE DIAGNOSES: Obesity with BMI of 38, hypertension, dyslipidemia, diabetic neuropat hy, chronic low back pain, coronary artery disease, normocytic normochromic anemia, and diabetes type 2. PRIMARY PROCEDURE/OPERATION: I&D was performed by Dr. Cross. RADIOLOGICAL INVESTIGATION: Chest x-ray showed cardiomegaly. Ultrasound was negative for any DVT. Lower extremity ultrasound showed soft tissue fluid collection. SIGNIFICANT LABS: WBC 8.2, hemoglobin 9.5, and platelets 321. Sodium 135, potassium 3.6, chloride 9 7, carbon dioxide 32, BUN 17, creatinine 0.74, calcium 9.0, lactic acid 1.9. LFTs normal. Urinalysi s normal. Blood culture negative. Wound culture grew E. coli and Staphylococcus aureus. DISCHARGE MEDICATIONS: Tylenol #3 one or two tablets p.o. q.6 hourly p.r.n., aspirin 325 mg p.o. jennifer ly, Lipitor 20 mg p.o. at bedtime, Coreg 3.125 mg p.o. b.i.d., Cipro 500 mg p.o. b.i.d. for 15 days, Pepcid 20 mg p.o. b.i.d., ferrous sulfate 325 mg p.o. daily, Lasix 40 mg p.o. daily, gabapentin 900 m g p.o. t.i.d., glyburide 5 mg p.o. b.i.d., losartan 50 mg p.o. daily, potassium chloride 10 mEq p.o. daily, Florastor 250 mg p.o. daily for 15 days. CONTRAINDICATIONS: None. CODE STATUS: FULL CODE. INPATIENT CONSULTANTS: Dr. Cross was consulted while in hospital. TEST RESULTS PENDING ON DISCHARGE: None. ALLERGIES: No known drug allergy. DISCHARGE PLAN: Post hospital, the patient will follow up with primary care physician on 07/01/2017. Patient will follow up with Dr. Cross as instructed. HOSPITAL COURSE: A 57-year-old male who had recent CABG and he was discharged home. He was taking L asix, but he was having increasing bilateral lower extremity edema. He also noticed erythema, tender ness, and drainage at surgical site. He had a postoperative wound infection and that is why we kept him in the hospital. We initially treated him with vancomycin and Zosyn. His wound culture grew E. coli and Staph aureus. Based on culture and sensitivity result on discharge, we changed to Cipro whi le in hospital; subsequently, we changed to Rocephin based on culture and sensitivity result and disc ontinued Zosyn. Vancomycin and Rocephin continued up until discharge. Patient had ultrasound of the lower extremity which was negative for DVT. Ultrasound of soft tissue showed fluid collection and t hat is why Dr. Cross did I&D and after that wound care team was following, patient's learned how to do dressing by herself at home. At this point, the patient is afebrile and hemodynamically stabl e. His lower extremity edema is significantly improved. We advised him to change Lasix 40 mg p.o. b .i.d. His diabetes was not controlled well and that is why we recommended to add glyburide on top of other medication. All new medication prescriptions sent to his pharmacy. Dr. Cross cleared him for discharge as well. The patient is also clinically stable for discharge. PHYSICAL EXAMINATION: The patient is seen and examined at bedside today. VITAL SIGNS: Currently, temperature 97.9, pulse 79, respiratory rate 16, saturation 95% on room air, blood pressure 130/79. Weight 234 pounds. GENERAL: The patient is currently alert, awake, no acute distress. HEAD: Normocephalic, atraumatic. EYES: Pupils round, reactive to light. Extraocular muscles are intact. ENT: Oropharynx within normal limits. Moist mucous membranes. No oral lesions. No pharyngeal eryt jimena. No exudate. NECK: Supple. No JVD, no thyromegaly, no carotid bruit. LUNGS: Clear to auscultation without any rhonchi or rales. CARDIAC: S1, S2 regular without any murmur. ABDOMEN: Soft and benign without any tenderness. EXTREMITIES: Trace lower extremity edema present, but significantly reduced and wound is covered wit h dressing. NEUROLOGIC: Nonfocal examination. Plan of care discussed with the patient and patient's at bedside. The patient is stable for dis charge today.
--- NOTE | 2017-06-29 23:53 | PQF ---
MARCO ANTONIO CHAVEZ JAMES M MD [id number] CLINICAL DOCUMENTATION CLARIFICATION FORM: POST DISCHARGE Addendum to original discharge summary date: ____ Late entry note date: __ DATE: 06/29/17 ATTN: Dr. Cross Please exercise your independent, professional judgment in responding to the clarification form. Clinical indicators are provided on the bottom of this form for your review For the Incision and Drainage dated 06/22/17, please specify the structures that were involved in the abscess: Please check appropriate box(s): [ ] Skin [ ] Subcutenous tissue [ ] Muscle [ ] Other diagnosis [ ] Unable to determine CLINICAL INDICATORS - SIGNS / SYMPTOMS / LABS post op infection of the SVG harvest site [employer]IS[employer] DM Recent CABG TREATMENTS: I&D antibiotics (This form is maintained as a part of the permanent medical record) 2014 [employer] All Rights Reserved DEBBY Maria, [place] [email or web address] [phone] MTDD
== END 2017-06-25 09:46 | disposition home or self-care (01) | DRG 862 ==
LOC: ERS 10:58 → T4-B 13:47
PROVIDERS: ADMIT Internal Medicine; ATTEND Internal Medicine
PROC: 0Y9D0ZZ Drainage of Left Upper Leg, Open Approach (ICD-10-PCS; principal; 2017-06-22)
DX: T81.4XXA Infection following a procedure, initial encounter (principal); I50.23 Acute on chronic systolic (congestive) heart failure; E11.65 Type 2 diabetes mellitus with hyperglycemia; E11.40 Type 2 diabetes mellitus with diabetic neuropathy, unspecified; B96.20 Unspecified Escherichia coli [E. coli] as the cause of diseases classified elsewhere; L08.9 Local infection of the skin and subcutaneous tissue, unspecified; B95.61 Methicillin susceptible Staphylococcus aureus infection as the cause of diseases classified elsewhere; Y83.8 Other surgical procedures as the cause of abnormal reaction of the patient, or of later complication, without mention of misadventure at the time of the procedure; I11.0 Hypertensive heart disease with heart failure; I25.10 Atherosclerotic heart disease of native coronary artery without angina pectoris; Z95.1 Presence of aortocoronary bypass graft; E66.9 Obesity, unspecified; Z68.38 Body mass index [BMI] 38.0-38.9, adult; E78.5 Hyperlipidemia, unspecified; I25.2 Old myocardial infarction; Z87.891 Personal history of nicotine dependence; D64.9 Anemia, unspecified
CPT/HCPCS: 36415; 36416; 71045; 76882; 80048; 80053; 80202; 81003; 81015; 82570; 83605; 84156; 85025; 87040; 87070; 87077; 87186; 87205; 93005; 93970; 94760; 96361; 96365; 96375; J2270; A4216; G8978-GP-CI; G8979-GP-CI; G8980-GP-CI; J0696; J1170; J1650; J1940; J2001; J2250; J2405; J2543; J2550; J2704; J3010; J3370; J7050; P9045

== ENCOUNTER 2017-07-07 10:45 | Emergency (ER) | payer OTHER ==
--- NOTE | 2017-07-07 11:38 | RAD ---
PORTABLE CHEST: HISTORY: The patient is status post fall with left-sided pain. COMPARISON: 06/18/2017 FINDINGS: Heart size is enlarged. There are postop sternotomy changes. The lungs are clear of infiltrates. T here are no signs of failure. Postoperative changes of the left shoulder are again noted. IMPRESSION: Cardiomegaly with postoperative sternotomy change. No acute process. POS: [facility]
--- NOTE | 2017-07-07 11:41 | RAD ---
LEFT ELBOW FOUR VIEWS: History: Fall with elbow pain. FINDINGS: There are surgical clips in the region of the forearm. There are arthritic changes of the elbow. Ther e are no signs of fracture, dislocation, or joint effusion. IMPRESSION: No evidence of fracture. POS: [facility]
== END 2017-07-07 11:43 | disposition home or self-care (01) ==
LOC: SCSER 10:45
DX: S50.12XA Contusion of left forearm, initial encounter (principal); S20.219A Contusion of unspecified front wall of thorax, initial encounter; E11.40 Type 2 diabetes mellitus with diabetic neuropathy, unspecified; I25.2 Old myocardial infarction; Z87.891 Personal history of nicotine dependence; Z79.899 Other long term (current) drug therapy; Z79.84 Long term (current) use of oral hypoglycemic drugs; W19.XXXA Unspecified fall, initial encounter
CPT/HCPCS: 71045

== ENCOUNTER 2017-07-17 16:28 | Observation (INO) | payer SELFPAY ==
[2017-07-17 16:55] LABS: #Basophils 0.1 thou/uL (0.0-0.2); #Eosinphils 0.4 thou/uL (0.0-0.7); #Lymphocytes 2.7 thou/uL (1.20-3.40); #Monocytes 0.6 thou/uL (0.11-0.59); #Neutrophils 3.4 thou/uL (1.40-6.50); %Basophils 1.3 % (0.0-1.0); %Eosinophils 6.1 % (0.0-10.0); %Lymphocytes 37.3 % (21.0-51.0); %Neutrophils 47.3 % (42.0-75.0); Hemoglobin 11.6 g/dL (14.0-18.0); Mean Corpuscular HGB CONC 33.9 g/dL (32.0-36.0); Mean Corpuscular Hemoglobin 29.3 pg (27.0-31.0); Mean Corpuscular Volume 86.3 fl (80.0-94.0); Mean Platelet Volume 7.3 fL (7.4-10.4); Platelet Count 197 thou/uL (130-400); RBC Distribution Width 14.7 % (11.5-14.5); Red Blood Cell (RBC) Count 3.97 mill/uL (4.70-6.10); White Blood Cell (WBC) Count 7.2 thou/uL (4.8-10.8)
[2017-07-17 17:09] LABS: ALT (SGPT) 24 U/L (8-55); AST (SGOT) 37 U/L (5-34); Albumin 3.5 g/dL (3.5-5.0); Alkaline Phosphatase 230 U/L (40-150); Anion Gap 14 mmol/L (10-20); BUN (Urea Nitrogen) 17 mg/dL (8.4-25.7); Bilirubin, Total 0.7 mg/dL (0.2-1.2); Calc. Creatinine Clearance 0 mL/min (70-130); Calcium 8.8 mg/dL (7.8-10.44); Carbon Dioxide 23 mmol/L (22-29); Chloride 106 mmol/L (98-107); Estimated GFR-MDRD Greater than 90; Globulin 4.2 g/dL (2.4-3.5); Glucose 174 mg/dL (70-105); Potassium 4.1 mmol/L (3.5-5.1); Protein, Total 7.7 g/dL (6.0-8.3); Sodium 139 mmol/L (136-145)
[2017-07-17] MEDS ORDERED: Ketorolac Tromethamine 30 MG/ML VIAL ONE (17:09)
[2017-07-17 17:10] LABS: CKMB 5.3 ng/mL (0-6.6); Troponin I 0.097 ng/mL (< 0.028)
--- NOTE | 2017-07-17 18:23 | RAD ---
PORTABLE UPRIGHT FRONTAL CHEST RADIOGRAPH 07/17/17 COMPARISON: 07/07/17 HISTORY: Chest pain. FINDINGS: there is stable prominence of the cardiac silhouette. Stable midline sternotomy wires are present. Th ere is no pneumothorax or pleural fluid and no focal consolidation or alveolar edema. IMPRESSION: No acute findings. POS: [facility]
[2017-07-17] MEDS ORDERED: Ondansetron HCl/PF 4 MG/2 ML Vial IVP PRN (19:04)
[2017-07-17] MEDS ORDERED: Ondansetron ODT 4 MG TAB SL PRN (19:04)
[2017-07-17] MEDS ORDERED: Acetaminophen 325 MG TAB PO PRN (19:04)
--- NOTE | 2017-07-17 20:24 | PDOC.FPRHP ---
- History of Present Illness Chief Complaint: Chest Pain History of Present Illness: This is a 57 y/o M with a PMHx of DM2, CAD s/p 4v CABG on 06/08/2017, HFrEF, HTN who presents complaining of chest pain. The patient reports that he has had a dull chest pain since his CABG, but this morning he developed a sharp pain that comes and goes and will last 20-30 seconds at a time. It is in the left side of his chest and he describes it as a 7/10. He denies SOB, but reports that during these episodes he breathes more shallow due to the pain. These episodes come on while he is sitting down and are not associated with activity. The patient also reports an episode of light headedness, nausea, and blurry vision that happened around 4pm when he was in the [facility] parking lot. The patient had to sit down at that time and then felt better after sitting down. ED Course: The patient was evaluated by Dr. Fonseca in the [facility] ED and was given 15mg IV toradol. - Allergies/Adverse Reactions Allergies Allergy/AdvReac Type Severity Reaction Status Date / Time No Known Allergies Allergy Verified 07/17/17 20:15 - Home Medications Medication Instructions Recorded Confirmed Type Gabapentin 900 mg PO TID 06/06/17 07/17/17 History Aspirin [Ecotrin Regular Strength] 325 mg PO DAILY tab 06/13/17 07/17/17 Rx Atorvastatin Calcium [Lipitor] 20 mg PO HS #1 tab 06/13/17 07/17/17 Rx Carvedilol [Coreg] 3.125 mg PO BID #1 tab 06/13/17 07/17/17 Rx Losartan [Cozaar] 50 mg PO DAILY #1 tab 06/13/17 07/17/17 Rx Potassium Chloride [K-Dur] 10 meq PO QAM-WM #1 tab 06/13/17 07/17/17 Rx Acetaminophen With Codeine 1 - 2 tablet PO Q6HR PRN #30 tablet 06/25/17 Rx [Tylenol with Codeine #3] Furosemide [Lasix] 40 mg PO DAILY 07/17/17 07/17/17 History - History PMHx: CAD s/p CABG HFrEF (EF 30-35%) DM2 Diabetic Neuropathy HLD HTN Normocytic Anemia Morbid Obesity PSHx: 4v CABG (06/08/2017) L Rotator Cuff sx L 2nd toe amputation FHx: Brother - colon cancer Mother - Hypothyroidism, DM2, HTN Father - CAD (70's) Social: , 5 children, former cigarette smoker - used to smoke 1 ppd for 4 years, quit 30 years ago. Drinks EtOH rarely, denies drug use. PCP: Dr. Oliveira Certified Orthotist/Pedorthist Dr. Montenegro - Review of Systems General: denies: fever/chills Eyes: denies: eye pain ENT: reports: nasal congestion. denies: rhinorrhea Respiratory: denies: cough, shortness of breath Cardiovascular: reports: chest pain, edema Gastrointestinal: reports: diarrhea (while taking metformin recently), abdominal pain (while taking metformin recently). denies: nausea, vomiting Genitourinary: denies: dysuria, polyuria Skin: reports: rashes (due to a bandaid). denies: lesions Musculoskeletal: reports: pain (L arm pain after falling, L pectoral mm pain), tenderness Neurological: denies: syncope, weakness - Vital signs BP: 167/80 HR: 71 RR: 18 Tmax: 97.5 Pox: 97% on RA Wt: 105kg - Physical Exam Constitutional: NAD (obese), awake, alert and oriented HEENT: normocephalic and atraumatic, PERRLA, EOMI, conjunctiva clear, grossly normal vision, normal nasal mucosa, MMM, oropharynx clear Neck: supple, FROM, trachea midline, no thyromegaly -Chest: tender to palpation over left pectoralis muscle Heart: RRR, normal S1/S2, no murmurs/rubs/gallops Lungs: CTAB, no respiratory distress, good air movement, no rales/rhonchi, no wheezing Abdomen: soft, non-tender, bowel sounds present, no masses/distention Musculoskeletal: normal structure, normal tone, ROM grossly normal Neurological: no focal deficit, CN II-XII intact Skin: no rash/lesions, good turgor, capillary refill <2 seconds Psychiatric: normal mood and affect, good judgment and insight, intact recent and remote memory FMR H&P: Results - Labs Result Diagrams: 07/18/17 04:14 07/18/17 04:14 Lab results: WBC 7.2 thou/uL (4.8-10.8) 07/17/17 16:46 Hgb 11.6 g/dL (14.0-18.0) L 07/17/17 16:46 Hct 34.2 % (42.0-52.0) L 07/17/17 16:46 MCV 86.3 fl (80.0-94.0) 07/17/17 16:46 Plt Count 197 thou/uL (130-400) 07/17/17 16:46 Neutrophils % 47.3 % (42.0-75.0) 07/17/17 16:46 Sodium 139 mmol/L (136-145) 07/17/17 16:46 Potassium 4.1 mmol/L (3.5-5.1) 07/17/17 16:46 Chloride 106 mmol/L (98-107) 07/17/17 16:46 Carbon Dioxide 23 mmol/L (22-29) 07/17/17 16:46 BUN 17 mg/dL (8.4-25.7) 07/17/17 16:46 Creatinine 0.78 mg/dL (0.7-1.3) 07/17/17 16:46 Glucose 174 mg/dL (70-105) H 07/17/17 16:46 Calcium 8.8 mg/dL (7.8-10.44) 07/17/17 16:46 Total Bilirubin 0.7 mg/dL (0.2-1.2) 07/17/17 16:46 AST 37 U/L (5-34) H 07/17/17 16:46 ALT 24 U/L (8-55) 07/17/17 16:46 Alkaline Phosphatase 230 U/L (40-150) H 07/17/17 16:46 CK-MB (CK-2) 5.3 ng/mL (0-6.6) 07/17/17 16:46 Serum Total Protein 7.7 g/dL (6.0-8.3) 07/17/17 16:46 Albumin 3.5 g/dL (3.5-5.0) 07/17/17 16:46 - EKG Interpretation EKG: NSR, T wave inversions in leads I and AVL - Radiology Interpretation Chest x-ray Status: image reviewed by me, report reviewed by me Additional comment: No acute abnormality CT scan - chest Status: report reviewed by me Additional comment: No signs of pericardial effusion, hypodense lesion in R lobe of liver FMR H&P: A/P - Problem List (1) Atypical chest pain Current Visit: Yes Status: Acute Code(s): R07.89 - OTHER CHEST PAIN (2) Liver lesion, right lobe Current Visit: Yes Status: Acute Code(s): K76.89 - OTHER SPECIFIED DISEASES OF LIVER (3) Heart failure with reduced ejection fraction Current Visit: Yes Status: Acute Code(s): I50.20 - UNSPECIFIED SYSTOLIC ( CONGESTIVE) HEART FAILURE Qualifiers: Heart failure chronicity: chronic Qualified Code(s): I50.22 - Chronic systolic (congestive) heart failure (4) Diabetes mellitus type 2 in obese Current Visit: Yes Status: Acute Code(s): E11.69 - TYPE 2 DIABETES MELLITUS WITH OTHER SPECIFIED COMPLICATION; E66.9 - OBESITY, UNSPECIFIED (5) H/O four vessel coronary artery bypass graft Current Visit: No Status: Acute Code(s): Z95.1 - PRESENCE OF AORTOCORONARY BYPASS GRAFT (6) Anemia, normocytic normochromic Current Visit: No Status: Chronic Code(s): D64.9 - ANEMIA, UNSPECIFIED (7) CAD (coronary artery disease) Current Visit: No Status: Chronic Code(s): I25.10 - ATHSCL HEART DISEASE OF [place] CORONARY ARTERY W/O ANG PCTRS Qualifiers: Coronary Disease-Associated Artery/Lesion type: [place] artery [place] vs. transplanted heart: [place] heart Associated angina: angina presence unspecified Qualified Code(s): I25.10 - Atherosclerotic heart disease of [place] coronary artery without angina pectoris (8) Diabetic neuropathy Current Visit: No Status: Chronic Code(s): E11.40 - TYPE 2 DIABETES MELLITUS WITH DIABETIC NEUROPATHY, UNSP Qualifiers: Diabetes mellitus type: type 2 Diabetes mellitus complication detail: diabetic polyneuropathy Qualified Code(s): E11.42 - Type 2 diabetes mellitus with diabetic polyneuropathy (9) Dyslipidemia Current Visit: No Status: Chronic Code(s): E78.5 - HYPERLIPIDEMIA, UNSPECIFIED (10) HTN (hypertension) Current Visit: No Status: Chronic Code(s): I10 - ESSENTIAL (PRIMARY) HYPERTENSION Qualifiers: Hypertension type: essential hypertension Qualified Code(s): I10 - Essential (primary) hypertension Comment: Well controlled at [place], folow cardiology recommedations. (11) Obesity (BMI 30-39.9) Current Visit: No Status: Chronic Code(s): E66.9 - OBESITY, UNSPECIFIED - Plan Atypical Chest Pain The patient has a Heart Score of 5, but based on the examination, this is likely musculoskeletal in nature. The patient appears to be having muscle spasms of his pectoralis muscle. His initial trop was 0.097. -Trend CE -Repeat EKG for any new or worsening chest pain -Morphine for chest pain -Aspirin daily -Cyclobenzaprine for muscle spasm -Monitor on tele Liver Lesion The patient had 4.7 cm hypodense lesion on the R lobe of the liver. -f/u outpatient with further imaging - CT abd with and without contrast, hepatic mass/hemangioma protocol CAD s/p 4v CABG -Continue home meds HFrEF (EF 30-35%) No signs of acute exacerbation at this time -Continue home meds -Fluid restrict DM2 The patient has been diet controlled until recently. He has been tried on Metformin but did not tolerate this. He was supposed to be switched to another medication, but this has not been started yet. 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 Pertinent changes/additions are listed here. 57 yr old white male with PMH of CAD s/p 4 vessel CABG one month prior and DM. He reports to outside ER with c/o chest pain. Patient most recently had a CABG after NSTEMI on 06/05/17. He reports a chronic dull pain since then in left shoulder/upper chest region. However, today the pain became tight with occasional sharp sensation that stops him from talking and causes him to press on his chest. Shortly after this CP began, he was walking into [facility] and felt suddenly lightheaded, blurry vision and nausea. He reports having not eaten for several hours prior to this episode. It passed with rest. He was given toradol in outside ER with only very minimal change in chronic dull pain. He does note falling after getting out of the car about 1.5 wks ago onto left side with significant forearm and elbow bruising. He had imaging of arm and elbow after that showing no fracture. PE: Gen: NAD, eating dinner, normal appearance for age. Cardiac: RRR, no M/R/G, left chest wall approx. 4th intercostal space chest wall tenderness to palpation Resp: CTAB no wheezes, rhales, rhonchi ext: 1+ pitting edema in BLE MSK: BUE limited range of motion 2/2 pain, neg empty can test EKG: normal sinus rhythm with T wave inversion in leads I and AVL. No ST elevation. Repeat EKG during chest pain showing no changes to that noted prior. Chest CT no contrast- Punctate nonobstructing stone mid pole right kidney. Subtle hypodense lesion suspected in right lobe of liver measuring 4.7 cm. A/P 57 year old white male with CAD and DM. 1.Atypical chest pain- -Trend troponins -Morphine for CP -Cont home meds -Likely consult cardiology in AM 2.DM- -Previously well controlled -Did not tolerate metformin and has not started new medications -Will cover with sliding scale insulin -Follow up with PCP at discharge for new medication 3.CAD s/p CABG -Cont home meds with cardiology consult -Suspect current CP not related to ACS. 4. liver lesion - follow up outpatient abdominal CT with and without contrast- liver mass protocol. Attending Addendum - Attending Addendum Date/Time: 07/18/17 0100 I personally evaluated the patient and discussed the management with Dr. Christian I agree with the History, Examination, Assessment and Plan documented above with any addition or exceptions noted below. ER noted indeterminate troponin admit for observation. Pain appears to be of musculoskeletal origin noted Pectoralis major spasm on exam with reproduction of pain with ROM, history of fall to corresponding side recently and prior left shoulder rotator cuff repair no evidence i.e. Mir syndrome, pericarditis, pleurisy, PNA, PE r/o with incidental finding of hepatic mass. Regard incidental finding questionable hemagioma verse mass Patient not sure if had screening colonoscopy rec CEA, AFP, update colon cancer screening as indicated and dedicated CT liver mass study as outpatient.
[2017-07-17 20:47] LABS: Troponin I 0.109 ng/mL (< 0.028)
[2017-07-17] MEDS ORDERED: Acetaminophen/Codeine 30-300mg Tablet PO PRN (20:52)
[2017-07-17] MEDS ORDERED: Morphine 5 MG/ML SYRINGE SLOW IVP PRN (20:58)
[2017-07-17] MEDS ORDERED: Atorvastatin Calcium 20 MG TAB PO SCH (21:00)
[2017-07-17] MEDS ORDERED: Dextrose 50% Abboject 50 ML SYRINGE SLOW IVP PRN (21:06)
[2017-07-17] MEDS ORDERED: HumaLOG 300 UNITS/3 ML VIAL SC PRN (21:06)
[2017-07-17] MEDS ORDERED: Dextrose 5% in Water 1,000 ML IV PRN (21:06)
[2017-07-17] MEDS: Carvedilol 3.125 MG TAB PO SCH (21:28)
[2017-07-17] MEDS: Gabapentin 300 MG CAP PO SCH (21:28)
--- NOTE | 2017-07-17 21:44 | CT ---
CHEST CT WITHOUT CONTRAST 07/17/17 COMPARISON: None. HISTORY: Dull chest pain, prior chest surgery. TECHNIQUE: Serial axial CT imaging at 5 mm intervals from the thoracic inlet through the upper abdomen without c ontrast. Coronal reformatted imaging obtained. FINDINGS: The lack of contrast limits assessment of the viscera, vascular structures and for lymphadenopathy. The patient's history reports undergoing midline sternotomy on 06/04/17. There is evidence of midline sternotomy with numerous midline sternotomy wires present. The postopera tive defect associated with the sternum and manubrium has not fully healed as of yet. There is mild s kin thickening and subcutaneous fat stranding, overlying the midline sternotomy defect. There is minimal stranding of the mediastinal fat anteriorly, nonspecific. No significant pleural, pericardial or mediastinal fluid is seen. Numerous mediastinal clips are present. There is coronary arterial calcification seen. Limited assessment of the upper abdomen demonstrates a punctate nonobstructing stone in the mid pole of the right kidney. There is a vague hypodense lesion suspected in the right lobe of the liver measuring 4.8 cm. No pneumothorax is noted. There is no endobronchial lesion identified. There is minimal linear densit y in the left lower lobe abutting the left hemidiaphragm suggesting mild volume loss. No suspicious p ulmonary mass lesion or nodule noted on either side. No acute osseous abnormality. There is mild soft tissue/fluid density posterior to the midline sternotomy wires at the level of the xiphoid process. IMPRESSION: 1. Postoperative changes consistent with recent midline sternotomy/CABG. 2. Punctate nonobstructing stone mid pole right kidney. 3. Subtle hypodense lesion suspected in the right lobe of the liver measuring in the 4.7 cm rang e. Recommend followup nonemergent CT examination of the abdomen with and without contrast using a [facility] mass/hemangioma protocol. Dr. Fonseca made aware via phone by Dr. Harris at 5:15 p.m., 07/17/17. Code CR POS: [facility]
[2017-07-17 23:38] LABS: CKMB 3.3 ng/mL (0-6.6); Troponin I 0.095 ng/mL (< 0.028)
[2017-07-18] MEDS ORDERED: Cyclobenzaprine 10 MG TAB PO PRN (00:06)
[2017-07-18] MEDS ORDERED: Cyclobenzaprine 10 MG TAB PO SCH (00:15)
[2017-07-18 05:14] LABS: #Eosinphils 0.6 thou/uL (0.0-0.7); #Lymphocytes 2.9 thou/uL (1.20-3.40); #Monocytes 0.6 thou/uL (0.11-0.59); #Neutrophils 3.5 thou/uL (1.40-6.50); %Basophils 0.3 % (0.0-1.0); %Eosinophils 7.7 % (0.0-10.0); %Lymphocytes 37.8 % (21.0-51.0); %Monocytes 8.2 % (0.0-10.0); Hemoglobin 10.6 g/dL (14.0-18.0); Mean Corpuscular HGB CONC 32.5 g/dL (32.0-36.0); Mean Corpuscular Hemoglobin 29.1 pg (27.0-31.0); Mean Corpuscular Volume 89.6 fl (80.0-94.0); Mean Platelet Volume 7.8 fL (7.4-10.4); Platelet Count 161 thou/uL (130-400); RBC Distribution Width 14.9 % (11.5-14.5); Red Blood Cell (RBC) Count 3.64 mill/uL (4.70-6.10); White Blood Cell (WBC) Count 7.6 thou/uL (4.8-10.8)
[2017-07-18 05:29] LABS: Anion Gap 12 mmol/L (10-20); BUN (Urea Nitrogen) 24 mg/dL (8.4-25.7); Calc. Creatinine Clearance 164 mL/min (70-130); Calcium 8.3 mg/dL (7.8-10.44); Carbon Dioxide 27 mmol/L (22-29); Chloride 105 mmol/L (98-107); Estimated GFR-MDRD Greater than 90; Glucose 186 mg/dL (70-105); Potassium 3.8 mmol/L (3.5-5.1); Sodium 140 mmol/L (136-145)
--- NOTE | 2017-07-18 06:21 | PDOC.FM ---
- Subjective Subjective: Patient is doing well this morning. Denies chest pain. Reports much relief after Flexeril yesterday. Patient is ready to go home. - Objective MAR Reviewed: Yes Vital Signs & Weight: Vital Signs (12 hours) Temp Pulse Resp BP BP Pulse Ox 07/18/17 04:10 75 18 151/73 H 95 07/17/17 23:55 98.7 F 81 14 148/74 H 92 L 07/17/17 18:55 97.5 F L 71 18 167/80 H 97 Weight Weight 105.143 kg Result Diagrams: 07/18/17 04:14 07/18/17 04:14 <Vandana Story - Last Filed: 07/18/17 11:00> - Objective Vital Signs & Weight: Vital Signs (12 hours) Temp Pulse Resp BP Pulse Ox 07/18/17 11:21 98.8 F 84 16 172/81 H 93 L 07/18/17 08:28 98.5 F 74 18 07/18/17 07:21 98.5 F 74 18 146/78 H 95 Weight Weight 105.143 kg Result Diagrams: 07/18/17 04:14 07/18/17 04:14 <John Brand - Last Filed: 07/18/17 16:24> Phys Exam - Physical Examination Constitutional: NAD HEENT: PERRLA, moist MMs Respiratory: no wheezing, no rales, clear to auscultation bilateral Cardiovascular: RRR, no significant murmur chest with midline surgical scar Gastrointestinal: soft, non-tender Musculoskeletal: no edema hypertonicity of L pectoralis Neurological: moves all 4 limbs Psychiatric: A&O x 3 <Vandana Story - Last Filed: 07/18/17 11:00> Dx/Plan (1) Atypical chest pain Code(s): R07.89 - OTHER CHEST PAIN Status: Acute (2) Diabetes mellitus type 2 in obese Code(s): E11.69 - TYPE 2 DIABETES MELLITUS WITH OTHER SPECIFIED COMPLICATION; E66.9 - OBESITY, UNSPECIFIED Status: Acute (3) Heart failure with reduced ejection fraction Code(s): I50.20 - UNSPECIFIED SYSTOLIC (CONGESTIVE) HEART FAILURE Status: Acute QualifierTitle: Heart failure chronicity: chronic Qualified Code(s): I50.22 - Chronic systolic (congestive) heart failure (4) Liver lesion, right lobe Code(s): K76.89 - OTHER SPECIFIED DISEASES OF LIVER Status: Acute (5) H/O four vessel coronary artery bypass graft Code(s): Z95.1 - PRESENCE OF AORTOCORONARY BYPASS GRAFT Status: Acute (6) CAD (coronary artery disease) Code(s): I25.10 - ATHSCL HEART DISEASE OF [place] CORONARY ARTERY W/O ANG PCTRS Status: Chronic QualifierTitle: Coronary Disease-Associated Artery/Lesion type: [place] artery [place] vs. transplanted heart: [place] heart Associated angina: angina presence unspecified Qualified Code(s): I25.10 - Atherosclerotic heart disease of [place] coronary artery without angina pectoris (7) Diabetic neuropathy Code(s): E11.40 - TYPE 2 DIABETES MELLITUS WITH DIABETIC NEUROPATHY, UNSP Status: Chronic QualifierTitle: Diabetes mellitus type: type 2 Diabetes mellitus complication detail: diabetic polyneuropathy Qualified Code(s): E11.42 - Type 2 diabetes mellitus with diabetic polyneuropathy (8) Dyslipidemia Code(s): E78.5 - HYPERLIPIDEMIA, UNSPECIFIED Status: Chronic (9) HTN (hypertension) Code(s): I10 - ESSENTIAL (PRIMARY) HYPERTENSION Status: Chronic QualifierTitle: Hypertension type: essential hypertension Qualified Code( s): I10 - Essential (primary) hypertension (10) Obesity (BMI 30-39.9) Code(s): E66.9 - OBESITY, UNSPECIFIED Status: Chronic (11) Anemia, normocytic normochromic Code(s): D64.9 - ANEMIA, UNSPECIFIED Status: Chronic - Plan Plan: Atypical Chest Pain, likely 2/2 muscle spasm The patient has a Heart Score of 5, but based on the examination, this is likely musculoskeletal in nature. The patient appears to be having muscle spasms of his pectoralis muscle. His initial trop was 0.097. -CE downtrended -Aspirin daily -continue Cyclobenzaprine for muscle spasm -Monitor on tele -consult CV surg to evaluate Liver Lesion The patient had 4.7 cm hypodense lesion on the R lobe of the liver. -f/u outpatient with further imaging - CT abd with and without contrast, hepatic mass/hemangioma protocol CAD s/p 4v CABG -Continue home meds HFrEF (EF 30-35%) No signs of acute exacerbation at this time -Continue home meds -Fluid restrict DM2 The patient has been diet controlled until recently. He has been tried on Metformin but did not tolerate this. He was supposed to be switched to another medication, but this has not been started yet. -[place] ACHS -SSI Diabetic Neuropathy -Continue gabapentin HLD -Continue home meds HTN -Continue home meds Morbid Obesity -Rad Technologist on lifestyle changes Dispo: d/c home today. <Vandana Story - Last Filed: 07/18/17 11:00> (1) Atypical chest pain Code(s): R07.89 - OTHER CHEST PAIN Status: Acute (2) Liver lesion, right lobe Code(s): K76.89 - OTHER SPECIFIED DISEASES OF LIVER Status: Acute (3) Heart failure with reduced ejection fraction Code(s): I50.20 - UNSPECIFIED SYSTOLIC (CONGESTIVE) HEART FAILURE Status: Acute Qualifiers: Heart failure chronicity: chronic Qualified Code(s): I50.22 - Chronic systolic (congestive) heart failure (4) Diabetes mellitus type 2 in obese Code(s): E11.69 - TYPE 2 DIABETES MELLITUS WITH OTHER SPECIFIED COMPLICATION; E66.9 - OBESITY, UNSPECIFIED Status: Acute (5) H/O four vessel coronary artery bypass graft Code(s): Z95.1 - PRESENCE OF AORTOCORONARY BYPASS GRAFT Status: Acute (6) Anemia, normocytic normochromic Code(s): D64.9 - ANEMIA, UNSPECIFIED Status: Chronic (7) CAD (coronary artery disease) Code(s): I25.10 - ATHSCL HEART DISEASE OF [place] CORONARY ARTERY W/O ANG PCTRS Status: Chronic Qualifiers: Coronary Disease-Associated Artery/Lesion type: [place] artery [place] vs. transplanted heart: [place] heart Associated angina: angina presence unspecified Qualified Code(s): I25.10 - Atherosclerotic heart disease of [place] coronary artery without angina pectoris (8) Diabetic neuropathy Code(s): E11.40 - TYPE 2 DIABETES MELLITUS WITH DIABETIC NEUROPATHY, UNSP Status: Chronic Qualifiers: Diabetes mellitus type: type 2 Diabetes mellitus complication detail: diabetic polyneuropathy Qualified Code(s): E11.42 - Type 2 diabetes mellitus with diabetic polyneuropathy (9) Dyslipidemia Code(s): E78.5 - HYPERLIPIDEMIA, UNSPECIFIED Status: Chronic (10) HTN (hypertension) Code(s): I10 - ESSENTIAL (PRIMARY) HYPERTENSION Status: Chronic Qualifiers: Hypertension type: essential hypertension Qualified Code(s): I10 - Essential (primary) hypertension (11) Obesity (BMI 30-39.9) Code(s): E66.9 - OBESITY, UNSPECIFIED Status: Chronic <John Brand - Last Filed: 07/18/17 16:24> Attending Addendum - Attending Addendum Date/Time: 07/18/17 1622 I personally evaluated the patient and discussed the management with Dr. Story I agree with the History, Examination, Assessment and Plan documented above with any addition or exceptions noted below.Patient aware of need for further characterization of liver mass discussed PT and flexoril for pectoralis spasm. <John Brand - Last Filed: 07/18/17 16:24>
[2017-07-18] MEDS ORDERED: Potassium Chloride 10 MEQ TAB PO SCH (08:00)
[2017-07-18] MEDS: Carvedilol 3.125 MG TAB PO SCH (08:28)
[2017-07-18] MEDS: Gabapentin 300 MG CAP PO SCH (08:28)
[2017-07-18] MEDS ORDERED: Enoxaparin Sodium 40 MG/0.4 ML SYRINGE SC SCH (09:00)
[2017-07-18] MEDS ORDERED: Furosemide 40 MG TAB PO SCH (09:00)
[2017-07-18] MEDS ORDERED: Aspirin 325 mg Enteric Coated Tablet PO SCH (09:00)
[2017-07-18] MEDS ORDERED: Losartan 25 MG TAB PO SCH (09:00)
--- NOTE | 2017-07-18 11:07 | PDOC.EVN ---
Event Note - Event Note Event Note: Patient is wanting to go home now. Spoke with Dr. Cao about seeing the patient due to recent CABG. Patient is insistent that his CP is not related to his heart and he is ready to go home. He does not want to wait on Dr. Cao to come see him. The team discussed it and feels comfortable that his CP is not related to cardiac origin. We will d/c home today but discussed importance of close follow up outpatient with CV surgeon Dr. Cross.
[2017-07-18 11:41] VITALS: BP 172/81; TEMP 98.8
--- NOTE | 2017-07-20 20:18 | EKG ---
Test Reason : STAT Blood Pressure : / mmHG Vent. Rate : 081 BPM Atrial Rate : 081 BPM P-R Int : 152 ms QRS Dur : 094 ms QT Int : 372 ms P-R-T Axes : 031 032 128 degrees QTc Int : 432 ms Normal sinus rhythm Left ventricular hypertrophy with repolarization abnormality Abnormal ECG When compared with ECG of 18-JUN-2017 12:08, No significant change was found Confirmed by SARAH CARR (2) on 07/20/2017 8:18:33 PM Referred By: MARIAN KERR Confirmed By:SARAH CARR
== END 2017-07-18 12:03 | disposition home or self-care (01) ==
LOC: SCSER 16:28 → 2SW 17:33
PROVIDERS: ADMIT Family Medicine; ATTEND Family Medicine
DX: R07.89 Other chest pain (principal); I25.10 Atherosclerotic heart disease of native coronary artery without angina pectoris; I11.0 Hypertensive heart disease with heart failure; I50.20 Unspecified systolic (congestive) heart failure; E11.40 Type 2 diabetes mellitus with diabetic neuropathy, unspecified; E78.5 Hyperlipidemia, unspecified; D64.9 Anemia, unspecified; K76.89 Other specified diseases of liver; E66.01 Morbid (severe) obesity due to excess calories; Z68.38 Body mass index [BMI] 38.0-38.9, adult; Z79.82 Long term (current) use of aspirin; Z79.84 Long term (current) use of oral hypoglycemic drugs; Z79.899 Other long term (current) drug therapy; Z87.891 Personal history of nicotine dependence; Z95.1 Presence of aortocoronary bypass graft
CPT/HCPCS: 36415; 36416; 71045; 71250; 80048; 80053; 82553; 84484; 85025; 93005; 93010; 96374; G0378; J1650; J1885

== ENCOUNTER 2017-07-23 07:55 | Outpatient (CLI) | payer OTHER ==
[2017-07-23] MEDS ORDERED: Iopamidol 370 76% 100 ML VIAL ONE (09:00)
--- NOTE | 2017-07-23 13:27 | CT ---
CT OF THE ABDOMEN WITH AND WITHOUT CONTRAST: Date: 07/23/17 INDICATION: History of liver mass. COMPARISON: CT of the thorax without contrast dated 07/07/[address] of the thorax dated 12/14/13. FINDINGS: There is a 5.1 x 5.0 cm oval heterogeneously enhancing mass seen within the central aspect of the rig ht hepatic lobe. The lesion is hypodense with some slight internal heterogeneity. There is central ar terial enhancement with early washout on the other delayed phase series. No additional focal hepatic lesion is evident. There is a 1.6 cm peripherally enhancing hypodense lesion within the posterior spleen which demonstra nisha fill-in on the other delayed phase images and may reflect a small splenic hemangioma. There is a 5.0 mm calculus within the right mid kidney. Adrenal glands, pancreas, and visualized uppe r abdomen are unremarkable. There is scattered vascular calcification. There is small focal sclerosis with the right ilium that may reflect small bone islands. No definite acute osseous abnormality is evident. IMPRESSION: 1. Centrally arterially enhancing heterogeneous lesion within the central aspect of the right hepati c lobe which was not definitely present on the CT examination of 2003. The enhancement characteristic s are suspicious for possible primary hepatic malignancy or solitary metastatic focus. Recommend cons ideration for percutaneous image guided biopsy for further evaluation. 2. 1.6 cm peripherally enhancing hypodensity within the spleen, with fill-in on the delayed phase im ages may reflect a small atypical splenic hemangioma. 3. Right nephrolithiasis. POS: [facility]
== END 2017-07-23 07:56 | disposition home or self-care (01) ==
LOC: SCSCT 07:55
PROVIDERS: ATTEND Internal Medicine
DX: R16.0 Hepatomegaly, not elsewhere classified (principal); K76.89 Other specified diseases of liver
CPT/HCPCS: 74170

== ENCOUNTER 2017-09-22 14:06 | Emergency (ER) | payer OTHER ==
[2017-09-22 14:40] LABS: #Basophils 0.1 thou/uL (0.0-0.2); #Eosinphils 0.2 thou/uL (0.0-0.7); #Lymphocytes 2.2 thou/uL (1.20-3.40); #Monocytes 0.5 thou/uL (0.11-0.59); #Neutrophils 2.9 thou/uL (1.40-6.50); %Basophils 1.2 % (0.0-1.0); %Eosinophils 3.7 % (0.0-10.0); %Lymphocytes 37.8 % (21.0-51.0); %Monocytes 7.8 % (0.0-10.0); %Neutrophils 49.5 % (42.0-75.0); Mean Corpuscular HGB CONC 34.3 g/dL (32.0-36.0); Mean Corpuscular Hemoglobin 29.4 pg (27.0-31.0); Mean Corpuscular Volume 85.7 fl (80.0-94.0); Platelet Count 143 thou/uL (130-400); RBC Distribution Width 14.4 % (11.5-14.5); Red Blood Cell (RBC) Count 4.77 mill/uL (4.70-6.10); White Blood Cell (WBC) Count 5.9 thou/uL (4.8-10.8)
[2017-09-22 14:59] LABS: CKMB 5.4 ng/mL (0-6.6); Troponin I 0.086 ng/mL (< 0.028)
[2017-09-22 15:27] LABS: ALT (SGPT) 27 U/L (8-55); AST (SGOT) 35 U/L (5-34); Albumin 3.6 g/dL (3.5-5.0); Alkaline Phosphatase 181 U/L (40-150); Anion Gap 14 mmol/L (10-20); BUN (Urea Nitrogen) 14 mg/dL (8.4-25.7); Bilirubin, Total 0.5 mg/dL (0.2-1.2); CK (CPK) 132 U/L (30-200); Calc. Creatinine Clearance 0 mL/min (70-130); Calcium 8.7 mg/dL (7.8-10.44); Carbon Dioxide 22 mmol/L (22-29); Chloride 107 mmol/L (98-107); Estimated GFR-MDRD 82; Globulin 3.7 g/dL (2.4-3.5); Glucose 218 mg/dL (70-105); Lipase 29 U/L (8-78); Potassium 4.3 mmol/L (3.5-5.1); Protein, Total 7.3 g/dL (6.0-8.3); Sodium 139 mmol/L (136-145)
--- NOTE | 2017-09-22 15:32 | RAD ---
CHEST 1 VIEW: HISTORY: Chest pain. COMPARISON: 07/17/17. FINDINGS: Cardiac silhouette is magnified and enlarged. Pulmonary vasculature is slightly engorged. Mediastin um midline with postoperative changes. No lobar consolidation or evidence of pneumothorax. IMPRESSION: Cardiomegaly. Mild pulmonary vascular congestion. Findings are stable compared to the exam from 2 m onths ago. POS: [facility]
== END 2017-09-22 15:40 | disposition home or self-care (01) ==
LOC: SCSER 14:06
DX: R07.89 Other chest pain (principal); I25.2 Old myocardial infarction; I10 Essential (primary) hypertension; E11.40 Type 2 diabetes mellitus with diabetic neuropathy, unspecified; Z87.891 Personal history of nicotine dependence; Z79.899 Other long term (current) drug therapy; Z79.82 Long term (current) use of aspirin; Z79.84 Long term (current) use of oral hypoglycemic drugs
CPT/HCPCS: 71045; 80053; 82550; 82553; 83690; 84484; 85025; 93005

== ENCOUNTER 2018-09-06 02:36 | Observation (INO) | payer OTHER, SELFPAY ==
[2018-09-06 03:35] LABS: #Basophils 0.1 thou/uL (0.0-0.2); #Eosinphils 0.3 thou/uL (0.0-0.7); #Lymphocytes 3.2 thou/uL (1.20-3.40); #Monocytes 0.7 thou/uL (0.11-0.59); #Neutrophils 4.3 thou/uL (1.40-6.50); %Basophils 1.2 % (0.0-1.0); %Eosinophils 3.1 % (0.0-10.0); %Lymphocytes 37.9 % (21.0-51.0); %Monocytes 7.8 % (0.0-10.0); %Neutrophils 49.9 % (42.0-75.0); Hemoglobin 14.1 g/dL (14.0-18.0); Mean Corpuscular HGB CONC 33.4 g/dL (32.0-36.0); Mean Corpuscular Hemoglobin 31.2 pg (27.0-31.0); Mean Corpuscular Volume 93.4 fL (78.0-98.0); Mean Platelet Volume 7.7 fL (7.4-10.4); Platelet Count 148 thou/uL (130-400); RBC Distribution Width 12.6 % (11.5-14.5); Red Blood Cell (RBC) Count 4.51 mill/uL (4.70-6.10); White Blood Cell (WBC) Count 8.5 thou/uL (4.8-10.8)
[2018-09-06 03:57] LABS: ALT (SGPT) 19 U/L (8-55); AST (SGOT) 22 U/L (5-34); Albumin 3.6 g/dL (3.5-5.0); Alkaline Phosphatase 143 U/L (40-150); Anion Gap 10 mmol/L (10-20); BUN (Urea Nitrogen) 20 mg/dL (8.4-25.7); Bilirubin, Total 0.6 mg/dL (0.2-1.2); Calc. Creatinine Clearance 0 mL/min (70-130); Calcium 9.4 mg/dL (7.8-10.44); Carbon Dioxide 29 mmol/L (22-29); Chloride 106 mmol/L (98-107); Estimated GFR-MDRD Greater than 90; Globulin 3.3 g/dL (2.4-3.5); Glucose 202 mg/dL (70-105); Potassium 3.9 mmol/L (3.5-5.1); Protein, Total 6.9 g/dL (6.0-8.3); Sodium 141 mmol/L (136-145)
[2018-09-06 04:22] LABS: CKMB 7.4 ng/mL (0-6.6)
[2018-09-06] MEDS ORDERED: Aspirin Chewable 81 MG TAB ONE (04:57)
[2018-09-06] MEDS ORDERED: Nitroglycerin 2% Ointment 1 INCH/1 GM Packet ONE (04:57)
[2018-09-06] MEDS ORDERED: Morphine 4 MG/ML VIAL ONE (05:19)
[2018-09-06] MEDS ORDERED: Enoxaparin Sodium 100 MG/ML SYRINGE ONE ×2 (05:21→08:54)
[2018-09-06] MEDS ORDERED: Dextrose 50% Abboject 50 ML SYRINGE SLOW IVP PRN (05:44)
[2018-09-06] MEDS ORDERED: Nitroglycerin 0.4 MG TAB (25 Tab Bottle) PO PRN (05:44)
[2018-09-06] MEDS ORDERED: Dextrose 5% in Water 1,000 ML IV PRN (05:44)
[2018-09-06] MEDS ORDERED: HumaLOG 300 UNITS/3 ML VIAL SC PRN ×2 (05:44)
--- NOTE | 2018-09-06 05:59 | PDOC.FPRHP ---
- History of Present Illness Chief Complaint: Chest pain History of Present Illness: Mr. Cole presents with his after a week and a half of chest pain He reports L sided constant pressure with intermittent sharp pain, similar to the pain he experienced in the past when he underwent CABG. He additionally reports DONALD and exertional chest pain for the past few weeks. Denies Diaphoresis , palpitations, or syncope. He has SL nitro at home which he has taken intermittently over the past week, that has possibly relieved the pain. additionally, he has significant burning sensation in his feet since he ran out of gabapentin one week ago which he attributes as the cause of his chest pain. ED Course: CBC, CMP, Trop, BNP EKG - Allergies/Adverse Reactions Allergies Allergy/AdvReac Type Severity Reaction Status Date / Time No Known Allergies Allergy Verified 08/04/17 08:24 - Home Medications Medication Instructions Recorded Confirmed Type Gabapentin 900 mg PO TID 06/06/17 08/02/17 History Aspirin [Ecotrin Regular Strength] 325 mg PO DAILY tab 06/13/17 08/02/17 Rx Atorvastatin Calcium [Lipitor] 20 mg PO HS #1 tab 06/13/17 08/02/17 Rx Carvedilol [Coreg] 3.125 mg PO BID #1 tab 06/13/17 08/02/17 Rx Losartan [Cozaar] 50 mg PO DAILY #1 tab 06/13/17 08/02/17 Rx Potassium Chloride [K-Dur] 10 meq PO QAM-WM #1 tab 06/13/17 08/02/17 Rx Furosemide [Lasix] 40 mg PO DAILY 07/17/17 08/02/17 History Acetaminophen With Codeine 1 tablet PO Q6HR PRN 08/04/17 History [Tylenol with Codeine #3] Cyclobenzaprine [Flexeril] 10 mg PO TID PRN 08/04/17 History Glimepiride [Amaryl] 1 mg PO BID 08/04/17 History - History PMHx: CAD, HTN, HLD, DMII PSHx: CABG, L shoulder sgx FHx: Heart disease Social: denies TAD - Review of Systems General: denies: fever/chills, weight/appetite/sleep changes Eyes: denies: vision changes Respiratory: reports: shortness of breath, exercise intolerance. denies: cough , congestion Cardiovascular: reports: chest pain, edema. denies: palpitation Gastrointestinal: denies: nausea, vomiting, diarrhea, constipation Skin: denies: rashes, lesions Musculoskeletal: denies: pain, tenderness Neurological: denies: numbness, syncope - Vital signs BP: 178/90 HR: 62 RR: 20 Tmax: 97.7 Pox: 96% on RA Wt: 105kg - Physical Exam Constitutional: NAD, other (pain 8/10 on exam) HEENT: grossly normal vision, grossly normal hearing, MMM Neck: supple, trachea midline Chest: no-tender to palpation, no lesions Heart: RRR, normal S1/S2, no murmurs/rubs/gallops Lungs: CTAB, no respiratory distress, good air movement Abdomen: soft, non-tender, bowel sounds present Musculoskeletal: normal structure, normal tone Neurological: no focal deficit, CN II-XII intact Skin: no rash/lesions, good turgor Heme/Lymphatic: no unusual bruising or bleeding, no purpura FMR H&P: Results - Labs Result Diagrams: 09/06/18 03:22 09/06/18 03:22 Lab results: WBC 8.5 thou/uL (4.8-10.8) 09/06/18 03:22 Hgb 14.1 g/dL (14.0-18.0) 09/06/18 03:22 Hct 42.1 % (42.0-52.0) 09/06/18 03:22 MCV 93.4 fL (78.0-98.0) 09/06/18 03:22 Plt Count 148 thou/uL (130-400) 09/06/18 03:22 Neutrophils % 49.9 % (42.0-75.0) 09/06/18 03:22 Sodium 141 mmol/L (136-145) 09/06/18 03:22 Potassium 3.9 mmol/L (3.5-5.1) 09/06/18 03:22 Chloride 106 mmol/L (98-107) 09/06/18 03:22 Carbon Dioxide 29 mmol/L (22-29) 09/06/18 03:22 BUN 20 mg/dL (8.4-25.7) 09/06/18 03:22 Creatinine 0.80 mg/dL (0.7-1.3) 09/06/18 03:22 Glucose 202 mg/dL (70-105) H 09/06/18 03:22 Calcium 9.4 mg/dL (7.8-10.44) 09/06/18 03:22 Total Bilirubin 0.6 mg/dL (0.2-1.2) 09/06/18 03:22 AST 22 U/L (5-34) 09/06/18 03:22 ALT 19 U/L (8-55) 09/06/18 03:22 Alkaline Phosphatase 143 U/L (40-150) 09/06/18 03:22 CK-MB (CK-2) 7.4 ng/mL (0-6.6) H* 09/06/18 03:22 B-Natriuretic Peptide 214.4 pg/mL (0-100) H 09/06/18 03:22 Serum Total Protein 6.9 g/dL (6.0-8.3) 09/06/18 03:22 Albumin 3.6 g/dL (3.5-5.0) 09/06/18 03:22 FMR H&P: A/P - Problem List (1) HLD (hyperlipidemia) Current Visit: Yes Status: Acute Code(s): E78.5 - HYPERLIPIDEMIA, UNSPECIFIED (2) Diabetes mellitus type 2 in obese Current Visit: No Status: Acute Code(s): E11.69 - TYPE 2 DIABETES MELLITUS WITH OTHER SPECIFIED COMPLICATION; E66.9 - OBESITY, UNSPECIFIED (3) H/O four vessel coronary artery bypass graft Current Visit: No Status: Acute Code(s): Z95.1 - PRESENCE OF AORTOCORONARY BYPASS GRAFT (4) Heart failure with reduced ejection fraction Current Visit: No Status: Acute Code(s): I50.20 - UNSPECIFIED SYSTOLIC ( CONGESTIVE) HEART FAILURE Qualifiers: Heart failure chronicity: chronic Qualified Code(s): I50.22 - Chronic systolic (congestive) heart failure (5) Liver lesion, right lobe Current Visit: No Status: Acute Code(s): K76.89 - OTHER SPECIFIED DISEASES OF LIVER (6) Diabetic neuropathy Current Visit: No Status: Chronic Code(s): E11.40 - TYPE 2 DIABETES MELLITUS WITH DIABETIC NEUROPATHY, UNSP Qualifiers: Diabetes mellitus type: type 2 Diabetes mellitus complication detail: diabetic polyneuropathy Qualified Code(s): E11.42 - Type 2 diabetes mellitus with diabetic polyneuropathy (7) HTN (hypertension) Current Visit: No Status: Chronic Code(s): I10 - ESSENTIAL (PRIMARY) HYPERTENSION Qualifiers: Hypertension type: essential hypertension Qualified Code(s): I10 - Essential (primary) hypertension Comment: Well controlled at Goal, folow cardiology recommedations. (8) Chest pain Current Visit: Yes Status: Acute Code(s): R07.9 - CHEST PAIN, UNSPECIFIED - Plan Chest pain with h/o CAD - trop/ckmb elevated, EKG without significant ST changes, VSS - active chest pain 12/10 in ED, requested morphine/nitro/tx lovenox be given - continue morphine/nitro/EKG for chest pain - tx lovenox BID - consider cards consult - trend troponinsx3 HTN - elevated BP in ED - continue home meds prescribed at last admission, hold coreg - hydralazine prn for SBP>180 HFrEF - EF 30-35% reported on Echo>1 year ago, BNP elevated - repeat echo - restart home lasix, coreg held as above DMII - Mild SSI, consider starting metformin when cardiac eval complete diabetic neuropathy - restart home gabapentin liver mass - 5x5cm heterogenously enhanced mass, recommended f/u per CT scan 07/2017 - consider inpt vs outpt workup Code: full PCP: Roxanne ppx: tx lovenox Dispo: admit to tele for continuous cardiac monitoring, consider cards consult if trop continues to rise FMR H&P: Upper Level - Pertinent history 58 yo male with PMH DM2, CAD s/p 4v CABG in Jun 2017, HFrEF 30-35%, HTN presenting for chest pain for the past week. Left sided chest pressure with assoc SOB, nausea. Denies worsening of CP with exertion. Has not follow up with cardiology since CABG. Former smoker, quit 30 years ago, approx 5pk year hx. - Pertinent findings 163/75 HR: 67 TEMP: 97.7 97% on RA RR: 21 Trop: 0.108 Ckmb: 7.4 d-dimer: <0.27 BNP: 214 K:3.9 Glucose: 202 EKG: apparent ST elevations in v1 and v2 GEN: NAD, somewhat flat affect CARD: RRR, no mgr PULM: CTAB EXT: trace pitting edema b/l - Plan Date/Time: 09/06/18 0552 I, Lester Alonso DO, have evaluated this patient and agree with findings/plan as outlined by real estate intern resident. Pertinent changes/additions are listed here. #chest pain, rule out ACS -with patients cardiac history and current history, there is significant concern for STEMI -will trend trops and contact cardiology in the morning -nitro, th lovenox -admit to tele #liver mass -5cm x 5cm per July 2017 CT abdomen -consider inpt workup -discuss with patient if he will be regaining insurance to see if this will likely be done in outpt setting #DMII -check HA1c #HFrEF -ECHO #HTN #HLD #CAD s/p 4v CABG #diabetic neuropathy
[2018-09-06] MEDS ORDERED: hydrALAZINE 20 MG/ML VIAL SLOW IVP PRN (06:13)
[2018-09-06] MEDS ORDERED: Morphine 4 MG/ML VIAL IV PRN (06:13)
[2018-09-06 07:07] LABS: Troponin I 0.113 ng/mL (< 0.028)
[2018-09-06] MEDS ORDERED: Potassium Chloride 20 MEQ TAB PO SCH (08:00)
[2018-09-06] MEDS ORDERED: Potassium Chloride 10 MEQ TAB PO SCH (08:00)
--- NOTE | 2018-09-06 08:40 | RAD ---
PORTABLE CHEST: History: Left sided chest pain for one week. Comparison: 09-22-17 FINDINGS: Heart size is enlarged. There are post op sternotomy changes. The lungs are clear of infiltrative pro cess. No signs of failure. IMPRESSION: Cardiomegaly. POS: HEMANTH
[2018-09-06] MEDS ORDERED: Aspirin 325 MG TAB ONE (08:54)
[2018-09-06] MEDS ORDERED: Furosemide 40 MG TAB ONE (08:54)
[2018-09-06] MEDS ORDERED: Gabapentin 300 MG CAP PO SCH (09:00)
[2018-09-06] MEDS ORDERED: Enoxaparin Sodium 100 MG/ML SYRINGE SC SCH (09:00)
[2018-09-06] MEDS ORDERED: Losartan 25 MG TAB PO SCH (09:00)
[2018-09-06] MEDS ORDERED: Aspirin 325 mg Enteric Coated Tablet PO SCH (09:00)
[2018-09-06] MEDS ORDERED: Furosemide 40 MG TAB PO SCH (09:00)
[2018-09-06 09:13] VITALS: BMI 37.3
[2018-09-06 10:20] LABS: Troponin I 0.102 ng/mL (< 0.028)
[2018-09-06 16:00] VITALS: BP 135/73; TEMP 98
--- NOTE | 2018-09-06 17:07 | HP ---
I have examined the patient, and I have discussed the case with Dr. Ryder Peng and agree with his assessment and plan. HISTORY OF PRESENT ILLNESS: Mr. Cole is a pleasant 58-year-old male with a previous history of coronary artery disease and CABG of a little over a year ago. He presented with some left-sided chest pressure with intermittent sharp pain similar to chest pain, he experienced prior to his CABG of little over a year ago. He presented to ER with the above complaints. He also reports some dyspnea on exertion and exertional chest discomfort for the past few weeks. He has had no diaphoresis, palpitations, or syncope. He has been taking some sublingual nitroglycerin at home over the past week, which he states possibly relieves the pain. PHYSICAL EXAMINATION: VITAL SIGNS: His blood pressure is 160/88, his heart rate is 62 and regular. He is afebrile. His room air pulse ox is 96%. GENERAL: The patient is awake and alert, in no distress. HEENT: Ears, nose, throat, mucous membranes moist. No erythema or exudate. NECK: Supple. No JVD. CARDIAC: The PMI is in the fifth intercostal space, midclavicular line, S4 apical gallop. No murmur or rub noted. LUNGS: Clear. No rales, rhonchi, or wheezes. No respiratory distress. ABDOMEN: Flat, soft. No guarding, rebound, or rigidity. NEUROLOGICAL: No focal deficits. EXTREMITIES: No edema. LABORATORY DATA: CBC; white count is 8500, hemoglobin 14.1, hematocrit 42.1 with an MCV of 93. Chemistries, his troponins are negative at 0.113 and 0.102. Sodium is 141, potassium 3.9, chloride 106, bicarb 29, BUN 20, creatinine 0.8. Random glucose is 202. BNP is 214. IMAGING STUDIES: EKG shows no acute ST-segment changes. ASSESSMENT AND PLAN: Suspicious chest pain in a patient with history of coronary artery bypass graft. We will go ahead and consult Cardiology to consider either a stress test with Myoview or cardiac catheterization. We will resume Mr. Cole's usual cardiac medications. Job ID: [id number]
--- NOTE | 2018-09-06 18:46 | PDOC.EVN ---
Event Note - Event Note Event Note: Note from this afternoon. Called to ED as patient and had questions. Dr. Montenegro was paged this morning by our team and then contacted by nursing staff this afternoon. Per nursing staff, he would not plan to cath patient and did not plan to see patient. Patient reports 6/10 chest pressure while in room. We recommended overnight observation for patient and stress test in the morning. Patient declined and decided to leave AMA after discussing with patient his high risk comorbidities and the risks associated with not accepting recommended workup. Patient understood this and decided to leave AMA with . Requested gabapentin refill as he felt this was contributing to his pain as well.
[2018-09-06] MEDS ORDERED: Atorvastatin Calcium 20 MG TAB PO SCH (21:00)
[2018-09-06] MEDS ORDERED: Atorvastatin Calcium 40 MG TAB PO SCH (21:00)
--- NOTE | 2018-09-17 13:33 | EKG ---
Test Reason : Blood Pressure : / mmHG Vent. Rate : 066 BPM Atrial Rate : 066 BPM P-R Int : 000 ms QRS Dur : 098 ms QT Int : 428 ms P-R-T Axes : 000 046 118 degrees QTc Int : 448 ms Accelerated Junctional rhythm Minimal voltage criteria for LVH, may be normal variant Abnormal ECG Baseline Artifact Present Confirmed by JUWAN ARIAS ([id number]), publication editor LARRY GARCIA ([id number]) on 09/17/2018 1:33:45 PM Referred By: Confirmed By:JUWAN ARIAS
== END 2018-09-06 16:26 | disposition left against medical advice (07) ==
LOC: ERS 02:36 → ERHOLD 04:38
PROVIDERS: ADMIT Emergency Medicine; ATTEND Emergency Medicine
DX: R07.89 Other chest pain (principal); I25.10 Atherosclerotic heart disease of native coronary artery without angina pectoris; E78.5 Hyperlipidemia, unspecified; I11.0 Hypertensive heart disease with heart failure; I50.22 Chronic systolic (congestive) heart failure; K76.89 Other specified diseases of liver; E11.42 Type 2 diabetes mellitus with diabetic polyneuropathy; E66.9 Obesity, unspecified; Z68.37 Body mass index [BMI] 37.0-37.9, adult; Z53.21 Procedure and treatment not carried out due to patient leaving prior to being seen by health care provider; Z87.891 Personal history of nicotine dependence; Z79.899 Other long term (current) drug therapy; Z79.84 Long term (current) use of oral hypoglycemic drugs; Z95.1 Presence of aortocoronary bypass graft
CPT/HCPCS: 36415; 36416; 71045; 80053; 82553; 83735; 83880; 84443; 84484; 85025; 85379; 93005; 93306; 96372; 96374; G0378; J1650; J2270

== ENCOUNTER 2018-11-10 15:30 | Observation (INO) | payer SELFPAY ==
[~2018-11-10 15:30] MED LIST: ISOVUE-370 76%-LOCM 1 ML ONE
[2018-11-10] MEDS ORDERED: Ibuprofen 800 MG TAB ONE (16:08)
[2018-11-10 16:36] LABS: #Lymphocytes 1.5 thou/uL (1.20-3.40); #Monocytes 0.4 thou/uL (0.11-0.59); #Neutrophils 7.3 thou/uL (1.40-6.50); %Basophils 0.3 % (0.0-1.0); %Eosinophils 0.5 % (0.0-10.0); %Lymphocytes 15.8 % (21.0-51.0); %Monocytes 4.6 % (0.0-10.0); %Neutrophils 78.8 % (42.0-75.0); Hemoglobin 14.5 g/dL (14.0-18.0); Mean Corpuscular HGB CONC 33.8 g/dL (32.0-36.0); Mean Corpuscular Hemoglobin 30.5 pg (27.0-31.0); Mean Corpuscular Volume 90.4 fL (78.0-98.0); Mean Platelet Volume 7.1 fL (7.4-10.4); Platelet Count 175 thou/uL (130-400); RBC Distribution Width 12.3 % (11.5-14.5); Red Blood Cell (RBC) Count 4.76 mill/uL (4.70-6.10); White Blood Cell (WBC) Count 9.2 thou/uL (4.8-10.8)
[2018-11-10 16:58] LABS: ALT (SGPT) 20 U/L (8-55); AST (SGOT) 20 U/L (5-34); Albumin 3.7 g/dL (3.5-5.0); Alkaline Phosphatase 185 U/L (40-150); Anion Gap 13 mmol/L (10-20); BUN (Urea Nitrogen) 10 mg/dL (8.4-25.7); Bilirubin, Total 1.8 mg/dL (0.2-1.2); CK (CPK) 87 U/L (30-200); Calc. Creatinine Clearance 0 mL/min (70-130); Calcium 8.8 mg/dL (7.8-10.44); Carbon Dioxide 25 mmol/L (22-29); Chloride 101 mmol/L (98-107); Estimated GFR-MDRD Greater than 90; Globulin 3.6 g/dL (2.4-3.5); Glucose 129 mg/dL (70-105); Lipase 13 U/L (8-78); Potassium 3.9 mmol/L (3.5-5.1); Protein, Total 7.3 g/dL (6.0-8.3); Sodium 135 mmol/L (136-145)
[2018-11-10 17:20] LABS: CKMB 2.8 ng/mL (0-6.6)
[2018-11-10] MEDS ORDERED: Aspirin 325 MG TAB ONE (19:12)
[2018-11-10] MEDS ORDERED: Ondansetron PF 4 MG/2 ML Vial ONE (19:12)
[2018-11-10] MEDS ORDERED: Morphine 4 MG/ML VIAL ONE (19:12)
--- NOTE | 2018-11-10 19:46 | PDOC.FPRHP ---
- History of Present Illness Chief Complaint: LUQ pain History of Present Illness: Patient is 58yoM with a PMH of [place], HTN, CAD, and DMII presenting today with LUQ pain that has been ongoing for about 2 weeks. Last week the pain was dull, but has since gradually worsened. This morning the pain became very severe and sharp , 9/10, and radiating from LUQ to his back. He has had associated nausea, vomiting (x2-3), decreased appetite, fatigue, fever, and chills. He notes that since he has been in the ED he has noticed that the pain in his LUQ is exacerbated by moving his left arm across his body. He has a history of peripheral neuropathy in his feet and has noted an increase over the last several weeks. He states that he frequently falls, up to several times per week , due to the neuropathy or feeling dizzy. He has not seen vice president quality assurance since his CABG in 2018. He took the medications prescribed for about 3 months following the CABG, but stopped and has not taken any statins, antihypertensives, or diabetes medications since then. His most recent visit to the ED was for similar symptoms - left sided chest pain with suspected cardiac cause. An echo performed at that time showed an EF 30-35%, with mild tricuspid and mitral regurgitation. The plan was to admit him for stress test and workup, but he left AMA. ED Course: EKG: NSR w/ LVH, unchanged from prior study Meds: ASA 324, 2x morphine 4mg, zofran 4mg, motrin 800mg. CT Abdomen and pelvis - Allergies/Adverse Reactions Allergies Allergy/AdvReac Type Severity Reaction Status Date / Time No Known Allergies Allergy Verified 11/10/18 21:52 - Home Medications Medication Instructions Recorded Confirmed Type Aspirin [Ecotrin Regular Strength] 325 mg PO DAILY tab 06/13/17 11/10/18 Rx Ibuprofen [Ibu] 600 mg PO BID 11/10/18 11/10/18 History - History PMHx: HTN HLD DMII [place] in 2017 PSHx: CABG x4 in 2018. FHx: Dad from heart-related issues age 92 Brother [place] age 49 Social: Retired. Drinks socially. - Review of Systems General: reports: fever/chills (on/off for several days), weight/appetite/sleep changes (decreased appetite), fatigue. denies: night sweats Eyes: denies: vision changes ENT: denies: nasal congestion, rhinorrhea Respiratory: reports: exercise intolerance. denies: cough, congestion, shortness of breath Cardiovascular: reports: paroxysmal nocturnal dyspnea, orthopnea. denies: palpitation, edema Gastrointestinal: reports: nausea, vomiting, abdominal pain. denies: diarrhea, constipation, GI bleeding Genitourinary: denies: incontinence, dysuria Skin: denies: rashes, lesions Musculoskeletal: reports: arthritis/arthralgias. denies: pain, tenderness, stiffness, swelling Neurological: reports: numbness, weakness. denies: syncope, seizure Psychological: reports: depression ("we all have pity parties"). denies: anxiety - Vital signs BP: 136/67 HR: 73 RR: 16 Tmax: Pox: 92% on RA Wt: [] - Physical Exam Constitutional: NAD, awake, alert and oriented HEENT: normocephalic and atraumatic, EOMI, grossly normal vision, grossly normal hearing Neck: supple, trachea midline, no JVD Heart: RRR, normal S1/S2, no edema Lungs: CTAB, no respiratory distress, good air movement, no rales/rhonchi, no wheezing Abdomen: soft, bowel sounds present, other (tender to palpation over LUQ, radiating around to back. Left CVA tenderness present.) Musculoskeletal: normal structure, normal tone -Neurological: Gross sensation only in lower extremities Skin: other Heme/Lymphatic: no unusual bruising or bleeding, no purpura, no petechia Psychiatric: normal mood and affect, good judgment and insight, intact recent and remote memory FMR H&P: Results - Labs Result Diagrams: 11/10/18 16:18 11/10/18 16:18 Lab results: WBC 9.2 thou/uL (4.8-10.8) 11/10/18 16:18 Hgb 14.5 g/dL (14.0-18.0) 11/10/18 16:18 Hct 43.1 % (42.0-52.0) 11/10/18 16:18 MCV 90.4 fL (78.0-98.0) 11/10/18 16:18 Plt Count 175 thou/uL (130-400) 11/10/18 16:18 Neutrophils % 78.8 % (42.0-75.0) H 11/10/18 16:18 Sodium 135 mmol/L (136-145) L 11/10/18 16:18 Potassium 3.9 mmol/L (3.5-5.1) 11/10/18 16:18 Chloride 101 mmol/L (98-107) 11/10/18 16:18 Carbon Dioxide 25 mmol/L (22-29) 11/10/18 16:18 BUN 10 mg/dL (8.4-25.7) 11/10/18 16:18 Creatinine 0.71 mg/dL (0.7-1.3) 11/10/18 16:18 Glucose 129 mg/dL (70-105) H 11/10/18 16:18 Lactic Acid 1.2 mmol/L (0.5-2.2) 11/10/18 16:18 Calcium 8.8 mg/dL (7.8-10.44) 11/10/18 16:18 Total Bilirubin 1.8 mg/dL (0.2-1.2) H 11/10/18 16:18 AST 20 U/L (5-34) 11/10/18 16:18 ALT 20 U/L (8-55) 11/10/18 16:18 Alkaline Phosphatase 185 U/L (40-150) H 11/10/18 16:18 Creatine Kinase 87 U/L (30-200) 11/10/18 16:18 CK-MB (CK-2) 2.8 ng/mL (0-6.6) 11/10/18 16:18 Serum Total Protein 7.3 g/dL (6.0-8.3) 11/10/18 16:18 Albumin 3.7 g/dL (3.5-5.0) 11/10/18 16:18 Lipase 13 U/L (8-78) 11/10/18 16:18 Laboratory Tests 11/10/18 11/10/18 16:18 19:44 Troponin I 0.118 H 0.108 H - EKG Interpretation EKG: NSR w/ LVH - Radiology Interpretation CT scan - abdomen Status: report reviewed by me (Shows heterogenously enhancing mass in the central liver measuring 6.9cm, which has grown from previous study (4.7cm --> 5x5 --> now 6.9). There is a non-obstructing 5-6mm renal calculus in the right kidney. There is a non-specific 1.6cm posterior spleen enhancement.) Chest x-ray Status: report reviewed by me (No acute processes.) FMR H&P: A/P - Problem List (1) Abdominal pain Current Visit: Yes Status: Acute Code(s): R10.9 - UNSPECIFIED ABDOMINAL PAIN Qualifiers: Abdominal location: left upper quadrant Qualified Code(s): R10.12 - Left upper quadrant pain (2) Elevated troponin I level Current Visit: Yes Status: Acute Code(s): R74.8 - ABNORMAL LEVELS OF OTHER SERUM ENZYMES (3) Diabetes mellitus type 2 in obese Current Visit: Yes Status: Chronic Code(s): E11.69 - TYPE 2 DIABETES MELLITUS WITH OTHER SPECIFIED COMPLICATION; E66.9 - OBESITY, UNSPECIFIED (4) H/O four vessel coronary artery bypass graft Current Visit: No Status: Chronic Code(s): Z95.1 - PRESENCE OF AORTOCORONARY BYPASS GRAFT (5) Heart failure with reduced ejection fraction Current Visit: No Status: Chronic Code(s): I50.20 - UNSPECIFIED SYSTOLIC ( CONGESTIVE) HEART FAILURE Qualifiers: Heart failure chronicity: chronic Qualified Code(s): I50.22 - Chronic systolic (congestive) heart failure (6) Liver lesion, right lobe Current Visit: No Status: Chronic Code(s): K76.89 - OTHER SPECIFIED DISEASES OF LIVER (7) CAD (coronary artery disease) Current Visit: No Status: Chronic Code(s): I25.10 - ATHSCL HEART DISEASE OF [place] CORONARY ARTERY W/O ANG PCTRS Qualifiers: Coronary Disease-Associated Artery/Lesion type: [place] artery [place] vs. transplanted heart: [place] heart Associated angina: angina presence unspecified Qualified Code(s): I25.10 - Atherosclerotic heart disease of [place] coronary artery without angina pectoris (8) Diabetic neuropathy Current Visit: No Status: Chronic Code(s): E11.40 - TYPE 2 DIABETES MELLITUS WITH DIABETIC NEUROPATHY, UNSP Qualifiers: Diabetes mellitus type: type 2 Diabetes mellitus complication detail: diabetic polyneuropathy Qualified Code(s): E11.42 - Type 2 diabetes mellitus with diabetic polyneuropathy (9) Dyslipidemia Current Visit: No Status: Chronic Code(s): E78.5 - HYPERLIPIDEMIA, UNSPECIFIED (10) HTN (hypertension) Current Visit: No Status: Chronic Code(s): I10 - ESSENTIAL (PRIMARY) HYPERTENSION Qualifiers: Hypertension type: essential hypertension Qualified Code(s): I10 - Essential (primary) hypertension Comment: Well controlled at Goal, folow cardiology recommedations. (11) Obesity (BMI 30-39.9) Current Visit: No Status: Chronic Code(s): E66.9 - OBESITY, UNSPECIFIED - Plan 1. Left upper quadrant pain - Pain has been present for 2 weeks but has acutely worsened. Associated fever, chills, nausea, vomiting, decreased appetite and shortness of breath. He has a significant cardiac history and an indeterminate troponin level on initial evaluation. Heart score is 4, with moderate risk of major adverse cardiac event. - Differential for LUQ pain includes ACS, GI causes, musculoskeletal, and infection. - ACS r/o: admit to telemetry for obs, continuous heart monitoring, serial troponins, repeat EKG, stress test in the AM. Labs for AM: Fasting lipid profile. Pain control with Tylenol. ASA 325 given. - GI workup: GI Cocktail reduced pain and nausea. Will start Protonix po. Loperamide prn for loose stools. - MSK: Chest x-ray showed no acute processes. - Infectious: Had temp of 101.4F on arrival to ED, h/o chills at home. Will closely monitor temps here. If he spikes a temp again tonight will order blood and urine cultures. 2. CAD s/p CABG x4 - Not following up with Cardiology. Not taking any preventive medications. 3. CHF - Echo done in August 2018 showed EF 30-35% with mitral and tricuspid regurgitation. Not on any home HF medications. Has signs of venous stasis dermatitis bilateral LE and history of edema, however no edema is present at this time and his lungs sounded clear. 4. DMII - Manages at home with diet and cinnamon supplementation. States that his sugars run 120-150 at home when he is watching his diet, however sometimes are up in the 200s if he is not being careful. - Accuchecks ACHS ordered - Recommend establishing care with PCP for health maintenance. - S/p left second toe amputation 5. Neuropathy 2/2 DMII - Worsening, likely due to uncontrolled DMII. Recommend establishing care with PCP and managing DMII more closely. 6. Liver lesion - Has grown from 4.7cm --> 5cm --> 6.9cm. In 2018 it was recommended that he have it biopsied and he declined. - Consider consulting IR for biopsy options and presenting them to the patient tomorrow. 7. Splenic lesion - Stable 1.6cm enhancing lesion in the posterior aspect of the spleen. Unchanged from CT in 07/2017. 8. Health maintenance - Patient has several chronic medical conditions, recommend further counseling that he establish care with a PCP for disease management and health maintenance. Disposition/LOS: Code: Full Diet: Clear liquids VTE: Lovenox Lines: Right 18g AC (11/10/18) Admit to Telemetry/OBS with anticipated LOS of <48 hours. FMR H&P: Upper Level - Pertinent history 58 y/o M PMHx CAD s/p 4v CABG, HFrEF, HTN, DM2 presents to the ED complaining of LUQ pain. He reports the pain has been going on about a week, but got acutely worse today. He describes it as a sharp pain that radiates to his back that is on the left side of his abdomen underneath his rib cage. He has associated decreased appetite, N/V with two episodes of emesis today, and diarrhea. He denies any h/o GERD except some acid reflux when he eats spaghetti. He reports that he takes ibuprofen regularly about 3 of the 200mg tabs twice a day. He denies any hematochezia, hematemesis, melena. He denies any SOB or diaphoresis with these episodes of pain. He is non-compliant with medications and fired his vice president quality assurance and PCP recently because he did not agree with the medications they wanted him to take. - Pertinent findings Vitals: BP 142/79, HR 70, RR 14, Temp 98.8, O2 94% on RA PE: Gen - alert, oriented, NAD HEENT - MMM CV - RRR, no murmurs Chest - Mild tenderness over ribs on left side, but not same pain Resp - CTAB, no wheezes Abd - non-distended, soft, tender to palpation in mid-epigastrium and LUQ with no rebound or guarding. No flank pain Labs: Trop 0.118, Na 135, Cr 0.71, GFR > 90, T. bili 1.8, ALT 20, AST 20, Alk phos 185, Lactate 1.2 CT abd/pelvis - central liver lesion, larger than prior study, non-specific stable lesion of spleen. CXR: no acute process - Plan Date/Time: 11/10/181945 I, Cathy Christian MD, PGY-3, have evaluated this patient and agree with findings/ plan as outlined by commercial intern resident. Pertinent changes/additions are listed here. LUQ abdominal pain, suspect gastritis Pt admitted to obs due to high CV risk in setting of LUQ abdominal pain. Initial trop elevated to 0.118, however this is around his baseline. His heart score is 4. He has been taking ibuprofen lately and has been having decreased appetite, N/V. -Will observe on telemetry -Trend troponins -Stress in AM -FLP to risk stratify further, pt has refused statin in the past -Will give a GI cocktail to assess if this improves his pain and if so, will start on protonix. Fever Pt with initial temp to 101.4, but this resolved with motrin. Unsure what the etiology is, but could be gastroenteritis. Asymptomatic otherwise. -If re-fevers, will do further workup with viral panel, blood cultures, procalcitonin HFrEF EF 30-35% in 09/18. Pt not fluid overloaded at this time. He has refused heart failure medications in the past. -No need for repeating echo at this time -Will discuss initiation of heart failure medications with the patient. CAD s/p CABG x4 Patient stopped following with cardiology. s/p 4v CABG about 18 months ago. -Not currently on medications except aspirin as pt refuses. -Will discuss this with him further DMII Not currently on medication, controls with diet, exercise, and cinnamon -Accuchecks Liver lesion Liver lesion has grown from 4.7cm --> 5cm --> 6.9cm. In 2018 it was recommended that he have it biopsied and he declined. -Consider inpatient workup as pt non-compliant, vs outpatient workup Splenic lesion Stable 1.6cm enhancing lesion in the posterior aspect of the spleen. Unchanged from CT in 07/2017. VTE ppx: Lovenox Dispo: obs on tele
--- NOTE | 2018-11-10 20:29 | CT ---
CT OF THE ABDOMEN AND PELVIS WITH CONTRAST: 11/10/18 COMPARISON: 07/23/17. HISTORY: Left upper quadrant abdominal pain. TECHNIQUE: Multiple contiguous axial images were obtained in a CT of the abdomen and pelvis with contrast. Coron al reformats were performed. FINDINGS: There is a heterogeneously enhancing lesion in the central liver. This appears to have enlarged julissa red to the prior exam and now measures 6.9 cm in greatest dimension. No biliary dilatation is seen. A nonobstructing 5 to 6 mm calcification is seen in the right kidney. The gallbladder, left kidney, ad renal glands, and pancreas are unremarkable. There is a stable area of enhancement in the posterior a spect of the spleen measuring approximately 1.6 cm in size. The large and small bowel are unremarkable. The appendix is unremarkable. No abdominal or pelvic l ymphadenopathy are seen. Atherosclerotic calcifications are seen in the aorta. The visualized inferior thorax and abdominal w all soft tissues are unremarkable. IMPRESSION: 1. No left upper quadrant abnormality. 2. There is a central liver lesion which appears to have enlarged. It was previously recommended that a biopsy should be considered. A biopsy should definitely be considered as this lesion has enla rged compared to the prior examination. 3. Stable enhancing lesion in the posterior aspect of the spleen is nonspecific. 4. Nonobstructing right renal calcification. POS: C
[2018-11-10 20:35] LABS: CKMB 2.2 ng/mL (0-6.6)
[2018-11-10] MEDS ORDERED: Acetaminophen 325 MG TAB PO PRN (21:00)
[2018-11-10] MEDS ORDERED: Loperamide HCl 2 MG CAP PO PRN (21:52)
[2018-11-10] MEDS ORDERED: Ondansetron ODT 4 MG TAB PO PRN (21:52)
[2018-11-10] MEDS ORDERED: Lidocaine 2% Viscous Solution 20 ML, Aluminum & Magnesium Hydroxide 30 ML, Donnatal Eli... SSW SCH (22:30)
[2018-11-10 23:12] LABS: Troponin I 0.129 ng/mL (< 0.028)
--- NOTE | 2018-11-10 23:29 | RAD ---
PA AND LATERAL VIEWS OF THE CHEST: 11/10/18 HISTORY: Left upper quadrant pain. FINDINGS: The heart size is normal. There are changes of median sternotomy. No focal areas of consolidation, pn eumothoraces, or pleural effusions are seen. There is elevation of the right hemidiaphragm which is a lso seen on exam of 12/15/03. IMPRESSION: No acute process. POS: HEMANTH
[2018-11-11 02:12] LABS: #Eosinphils 0.1 thou/uL (0.0-0.7); #Lymphocytes 1.3 thou/uL (1.20-3.40); #Monocytes 0.7 thou/uL (0.11-0.59); #Neutrophils 6.3 thou/uL (1.40-6.50); %Basophils 0.3 % (0.0-1.0); %Eosinophils 0.7 % (0.0-10.0); %Lymphocytes 15.3 % (21.0-51.0); %Monocytes 8.2 % (0.0-10.0); %Neutrophils 75.5 % (42.0-75.0); Mean Corpuscular HGB CONC 33.3 g/dL (32.0-36.0); Mean Corpuscular Hemoglobin 30.2 pg (27.0-31.0); Mean Corpuscular Volume 90.8 fL (78.0-98.0); Mean Platelet Volume 7.1 fL (7.4-10.4); Platelet Count 144 thou/uL (130-400); RBC Distribution Width 12.3 % (11.5-14.5); White Blood Cell (WBC) Count 8.4 thou/uL (4.8-10.8)
[2018-11-11 02:37] LABS: Troponin I 0.132 ng/mL (< 0.028)
[2018-11-11 02:41] LABS: ALT (SGPT) 16 U/L (8-55); AST (SGOT) 19 U/L (5-34); Albumin 3.3 g/dL (3.5-5.0); Alkaline Phosphatase 157 U/L (40-150); Anion Gap 13 mmol/L (10-20); BUN (Urea Nitrogen) 14 mg/dL (8.4-25.7); Bilirubin, Total 1.6 mg/dL (0.2-1.2); Calc. Creatinine Clearance 149 mL/min (70-130); Calcium 8.6 mg/dL (7.8-10.44); Carbon Dioxide 24 mmol/L (22-29); Cardiac Risk 4.3 (Less than 4.5); Chloride 102 mmol/L (98-107); Cholesterol 128 mg/dl (< 200 Desired); Estimated GFR-MDRD Greater than 90; Globulin 3.1 g/dL (2.4-3.5); Glucose 160 mg/dL (70-105); HDL Cholesterol 30 mg/dL (>60 Neg Risk); LDL Cholesterol, Calculated 83 mg/dL; Potassium 3.5 mmol/L (3.5-5.1); Protein, Total 6.4 g/dL (6.0-8.3); Sodium 135 mmol/L (136-145); Triglycerides 75 mg/dL (Less than 150)
--- NOTE | 2018-11-11 05:57 | PDOC.FM ---
- Subjective Subjective: Mr. Cole is doing well this morning. No acute events overnight but unable to get much sleep. He was worried about his stress test this morning. He states he is still having nausea, relieved with GI cocktail, and experienced 1 episodes of non-bloody, non-bilious vomiting overnight. He endorses fever/chills, diaphoresis, and LUQ abdominal pain described as a sharp stabbing pain, rated 7/ 10, and radiating to the back that is worsened with movement, deep inspiration, and relieved with rest. He denies any CP, SOB, diarrhea/constipation, CA, or urinary sxs. He does endorse congestion for the last 2 weeks but no cough or sore throat. No known sick contacts. This morning we discussed his CV risk factors and need to follow up with Cardio and PCP. He has previously declined medical therapy for his CVD and other chronic conditions. We discussed his ASCVD risk score and need for high-risk factor modification. He states he will consider restarting meds, but not at this time. - Objective MAR Reviewed: Yes Vital Signs & Weight: Vital Signs (12 hours) Temp Pulse Resp BP BP Pulse Ox 11/11/18 05:15 98.8 F 11/11/18 04:52 82 18 170/75 H 95 11/11/18 04:30 186/84 H 11/11/18 00:01 99.1 F 79 12 152/72 H 92 L 11/10/18 21:52 92 L 11/10/18 20:57 98.8 F 69 18 159/76 H 93 L Weight Weight 97.976 kg Result Diagrams: 11/11/18 01:49 11/11/18 01:49 Additional Labs: Trop 0.108 -> 0.129 -> 0.132 -> 0.102 Mg 1.5 Phos 3 EKG Reviewed by me: Yes (Tele: Chronic RBBB, no acute changes, NSR) Phys Exam - Physical Examination Constitutional: NAD HEENT: PERRLA, moist MMs Neck: supple Respiratory: no wheezing, no rales, no rhonchi, clear to auscultation bilateral Cardiovascular: RRR, no significant murmur, no rub Gastrointestinal: soft, no distention, positive bowel sounds LUQ tender to palpation under ribs. No rebound or guarding. No CVA tender. 1+ pitting edema of lower ext to the ankles Neurological: non-focal, normal sensation, moves all 4 limbs Psychiatric: normal affect, A&O x 3 Skin: no rash Dx/Plan (1) Abdominal pain Code(s): R10.9 - UNSPECIFIED ABDOMINAL PAIN Status: Acute Qualifiers: Abdominal location: left upper quadrant Qualified Code(s): R10.12 - Left upper quadrant pain (2) Elevated troponin I level Code(s): R74.8 - ABNORMAL LEVELS OF OTHER SERUM ENZYMES Status: Acute (3) H/O four vessel coronary artery bypass graft Code(s): Z95.1 - PRESENCE OF AORTOCORONARY BYPASS GRAFT Status: Chronic (4) Heart failure with reduced ejection fraction Code(s): I50.20 - UNSPECIFIED SYSTOLIC (CONGESTIVE) HEART FAILURE Status: Chronic Qualifiers: Heart failure chronicity: chronic Qualified Code(s): I50.22 - Chronic systolic (congestive) heart failure (5) Diabetes mellitus type 2 in obese Code(s): E11.69 - TYPE 2 DIABETES MELLITUS WITH OTHER SPECIFIED COMPLICATION; E66.9 - OBESITY, UNSPECIFIED Status: Chronic (6) Liver lesion, right lobe Code(s): K76.89 - OTHER SPECIFIED DISEASES OF LIVER Status: Chronic (7) HTN (hypertension) Code(s): I10 - ESSENTIAL (PRIMARY) HYPERTENSION Status: Chronic Qualifiers: Hypertension type: essential hypertension Qualified Code(s): I10 - Essential (primary) hypertension (8) CAD (coronary artery disease) Code(s): I25.10 - ATHSCL HEART DISEASE OF [place] CORONARY ARTERY W/O ANG PCTRS Status: Chronic Qualifiers: Coronary Disease-Associated Artery/Lesion type: [place] artery [place] vs. transplanted heart: [place] heart Associated angina: angina presence unspecified Qualified Code(s): I25.10 - Atherosclerotic heart disease of [place] coronary artery without angina pectoris - Plan Plan: Mr. Cole is a 58yo M with h/o [place], HTN, DMII s/p CABG in 07/2017, currently not on any medications, who presents for LUQ pain. 1. LUQ abdominal pain, MSK vs Cardiac vs PE - Admitted to tele obs 2/2 high CV risk. Trops stable. Heart score 4. - On protonix and GI cocktail with mild relief of sxs - Pt was scheduled for stress test this AM, however, stress lab called and rec cardio consult prior to stress. Pt states he does not want to see Dr. Monten[place]ro and now refuses the stress test and cardio consult. Risks and benefits of stress test were discussed and patient still declines. - 2/2 abnormal presentation and pain LUQ/right lower chest and slightly pluritic in nature. Will order CTA to r/o PE and identify any pulmonary causes of pain. 2. Fever - ED temp of 101.4, resolved with Motrin and afebrile since. Subjective chills. Low suspicion for infection. Will order Procal. 3. HFrEF - EF 30-35% in 09/18. Euvolumic at this time. Pt has not followed up with PCP or cards in past and declined previous home meds. - ASCVD score 18%. Discussed with patient the need for risk factor modification , such as addition of statin and BP medication, and good cardiology and PCP followup. Patient still declines any medications but states he will consider restarting meds. 4. CAD s/p CABG x4 - Patient stopped following with cardiology. s/p 4v CABG in July 2017. - Not currently on medications except aspirin as pt has declined other meds. Will discuss further with him. - Lipid panel: TC 128, LDL 83, HDL 30. Previously declined statin, discussed as above and patient still declining. 5. DMII - Not currently on medication, controls with diet, exercise, and cinnamon - Accuchecks. Will check A1C. 6. Liver lesion - Liver lesion has grown from 4.7cm --> 5cm --> 6.9cm. In 2018 it was recommended that he have it biopsied and he declined. - Discussed with patient need for outpatient follow up. 7. Splenic lesion - Stable 1.6cm enhancing lesion in the posterior aspect of the spleen. Unchanged from CT in 07/2017. 8. HTN - BP up to 220/110 this AM. Discussed with patient the need for BP meds, patient states this is acute in nature and his BP is in the 130s at home and does not want to start any BP medications. Will continue to monitor and discuss the need for BP medications. VTE ppx: Lovenox Diet: CC and Heart Healthy. Code: Full Dispo: Obs on Tele. Pending procal and CTA, if normal, will plan for PM d/c.
[2018-11-11] MEDS ORDERED: Lidocaine 2% Viscous Solution 10 ML, Aluminum & Magnesium Hydroxide 30 ML SSW SCH (06:00)
[2018-11-11 07:01] LABS: Magnesium 1.5 mg/dL (1.6-2.6)
[2018-11-11 07:08] LABS: Troponin I 0.102 ng/mL (< 0.028)
[2018-11-11] MEDS ORDERED: Aspirin 325 mg Enteric Coated Tablet PO SCH (09:00)
[2018-11-11] MEDS ORDERED: Enoxaparin Sodium 40 MG/0.4 ML SYRINGE SC SCH (09:00)
[2018-11-11 11:36] VITALS: BP 167/83; TEMP 98.4
[2018-11-11] MEDS ORDERED: Iopamidol 370 76% 100 ML VIAL ONE (11:44)
--- NOTE | 2018-11-11 12:51 | CT ---
CT PULMONARY ANGIOGRAM WITH IV CONTRAST AND 3D POSTPROCESSING: HISTORY: Left-sided chest pain. FINDINGS: There is good contrast opacification of the pulmonary arterial vasculature without filling defects to suggest pulmonary embolism. There are vascular calcifications without evidence of aneurysmal dilata tion of the thoracic aorta. No pleural or pericardial effusions are seen. No pneumothoraces, focal areas of consolidation, or lung nodules/masses are seen. There are mild dependent changes in the juliane g bases. There are degenerative changes in the spine. Please see CT abdomen and pelvis report from the previous evening for upper abdominal findings. IMPRESSION: No CT evidence of pulmonary embolism. POS: CHERISE
--- NOTE | 2018-11-12 11:16 | DIS ---
DATE OF ADMISSION: 11/10/2018 DATE OF DISCHARGE: 11/11/2018 RESIDENT: Filemon Higuera MD. ADMITTING ATTENDING: Modesto Butterfield MD DISCHARGE ATTENDING: José Manuel Bates MD CONSULTS: Cardiology - Cardiology consult was attempted for the patient; however, the patient refused to see Dr. Montenegro, who was the physician on-call. The patient then declined any Cardiology consult. PROCEDURES PERFORMED: 1. Chest x-ray - no acute cardiopulmonary process. 2. Abdomen and pelvis CT - no left upper quadrant abnormality. There is a central liver lesion, that appears to be enlarged measuring 6.9 cm in greatest dimension. It was previously recommended that a biopsy be considered, and Radiology strongly recommends the biopsy now due to enlarging of the mass. Splenic enhancing lesion in the posterior aspect of the spleen measuring 1.6 cm in size and nonspecific. 3. CTA chest - no evidence of pulmonary embolism. PRIMARY DIAGNOSIS: Left upper quadrant pain - musculoskeletal versus cardiac in nature. SECONDARY DIAGNOSES: 1. Heart failure with reduced ejection fraction, ejection fraction of 30% to 35% in August of 2018. 2. Coronary artery disease, status post 4-vessel coronary artery bypass grafting. 3. Type 2 diabetes. 4. Liver lesion. 5. Splenic lesion. 6. Hypertension. DISCHARGE MEDICATIONS: Aspirin 325 mg p.o. daily. It was discussed with the patient to control high risk factors for cardiovascular disease including starting blood pressure medication, diabetes medication, and a high-intensity statin. ASCVD Risk score was discussed with the patient, and the risk of heart attack and stroke with uncontrolled risk factors. However, the patient decided that he still did not want to take any medications and states that he will think about it and follow up with a primary care physician. HISTORY OF PRESENT ILLNESS: Mr. Cole is a 58-year-old male with a past medical history of ND, hypertension, coronary artery disease s/p CABG, type 2 diabetes, who is presenting for left upper quadrant pain that has been ongoing for approximately 2 weeks. He describes the pain as a dull ache, that has been gradually worsening over this time. He says the pain is very severe and recently sharp in nature, rated 9/10, and radiating from the left upper quadrant to his back. He has associated nausea and vomiting and has vomited 2 to 3 times in the last 24 hours prior to admission. He endorses decreased appetite, fatigue, fever, and chills and has noticed that the pain is exacerbated by movement. He says that he has frequent falls up to several times a week due to his neuropathy and dizziness. He has not seen a hay stacker since his CABG in 2018. He says that he took his medications for approximately 3 months following the CABG, but has since discontinued all medications other than a daily aspirin. The patient had a recent visit to the emergency department for similar symptoms including left-sided chest pain, and at that time, a cardiac cause was suspected. An echo was performed at that time, that showed an EF of 30% to 35% and mild tricuspid and mitral regurgitation. At that time, the plan was to admit him for a stress test and further workup; however, the patient left AMA. At this admission, in the emergency department, he was given aspirin and morphine, Zofran and Motrin with mild relief of symptoms. His EKG showed a normal sinus rhythm with LVH unchanged from previous EKG. CT of abdomen and pelvis did not show any acute abnormalities, however, did show an increasing liver mass as described above. He was admitted to the floor for further evaluation and management. Once admitted to the floor, he was given a GI cocktail and started on Protonix with mild improvement of nausea and GI symptoms; however, it did not resolve his left upper quadrant pain. He initially had a temperature of 101.4 on presentation, that resolved with Motrin, and he remained afebrile throughout remainder of his hospitalization. His procalcitonin was unremarkable. The following morning, the patient was doing well and had no acute events overnight. He says he was not able to get very much sleep due to being worried about his stress test that morning. He says that he was still having mild nausea, that was relieved with a GI cocktail. He did experience 1 episode of nonbloody, nonbilious vomiting overnight. He still endorsed fever and chills, diaphoresis, and left upper quadrant pain described as sharp and stabbing in nature. We discussed his cardiovascular risk factors and need for followup with Cardiology and a primary care physician to control his high risk factors including his diabetes, hypertension , and hyperlipidemia. His ASCVD Risk Score was greater than 18%, this was discussed with the patient, and risks, benefits, and alternatives of medication therapy were discussed, and the patient currently declined starting any medications while in the hospital or being sent home with any medications. He says that he will follow up with a primary care physician and consider restarting some medications. On the morning of discharge, the patient was due for a stress test; however, Nuclear medicine called and stated that he would benefit from a Cardiology consult prior to stress test. Dr. Montenegro was on-call; however, the patient refused to see Dr. Montenegro and stated that he no longer wanted to have a Cardiology consult or a stress test. Risks, benefits, and alternatives were discussed with the patient , and the patient still declined. The patient's pain did improve throughout the day. His liver lesion was discussed with the patient and that it is growing in size and that he will need outpatient followup for biopsy. The patient felt that this was stable and stated that he might follow up with a primary care physician regarding this , but wanted no further workup at this time. His blood pressure did remain elevated throughout his hospitalization up to 200s/100s. Again, the need for hypertensive therapy was discussed, and the patient still declined starting any medications. At the time of discharge, the patient was stable and able to ambulate and tolerate p.o. well. I discussed with the patient and his the need for starting medications for his chronic conditions. was at bedside and agreed with discharge and management plan as with the patient. The patient voiced understanding and agreement of discharge plan and was ready to go home. He was told the need to find and follow up with a primary care physician, and he states that he might come to our clinic at [facility] for his primary care needs. It was also discussed that he needs to find a hay stacker to follow up due to his history of ND and CABG and high risk factors. DISPOSITION: Stable. DISCHARGE INSTRUCTIONS: 1. Location: Home. 2. Diet: Heart-healthy and consistent carbs. 3. Activity: As tolerated. 4. Followup: The need for followup was discussed with the patient at length and that he needs to find a primary care physician. We offeredfor him to come to [facility] and follow up with us for his primary care needs. We also discussed the need for him to follow up with a hay stacker due to his previous ND and CABG. We did recommend that he follow up with in 7 to 10 days. Job ID: [id number] [facility]
== END 2018-11-11 15:48 | disposition home or self-care (01) ==
LOC: ERS 15:30 → 2SW 20:53 → EEVIPCON 20:53
PROVIDERS: ADMIT Family Medicine; ATTEND Family Medicine
DX: R10.12 Left upper quadrant pain (principal); I11.0 Hypertensive heart disease with heart failure; I50.22 Chronic systolic (congestive) heart failure; I25.10 Atherosclerotic heart disease of native coronary artery without angina pectoris; E11.42 Type 2 diabetes mellitus with diabetic polyneuropathy; K76.89 Other specified diseases of liver; D73.89 Other diseases of spleen; R79.89 Other specified abnormal findings of blood chemistry; R50.9 Fever, unspecified; E78.5 Hyperlipidemia, unspecified; I25.2 Old myocardial infarction; E66.9 Obesity, unspecified; Z87.891 Personal history of nicotine dependence; Z95.1 Presence of aortocoronary bypass graft; Z68.35 Body mass index [BMI] 35.0-35.9, adult; Z79.899 Other long term (current) drug therapy
CPT/HCPCS: 36415; 36416; 71046; 71275; 74177; 80053; 80061; 82550; 82553; 83036; 83605; 83690; 83735; 84100; 84145; 84484; 85025; 93005; 96372; 96374; 96375; G0378; J1650; J2270; J2405; Q9966; Q9967